=== PATIENT | female | born 1965 | race Caucasian/White ===

== ENCOUNTER 2017-11-09 09:00 | Outpatient (RCR) | payer OTHER, MEDICAID, SELFPAY ==
--- NOTE | 2017-10-26 13:11 | PT.OTN ---
Addendum entered and electronically signed by Lakia Garcia, PT 10/26/17 17:38: Transition note: On October 23, 2017 our therapy services consisting of Speech, Occupational, and Physical Therapy transitioned from the [employer] electronic documentation system to a new [employer] electronic documentation system.?? All documentation prior to October 23 can be found under [employer] saved data. From October 23 forward all medical record documentation will be in [employer]. Original Note: Current Diagnoses Rectal prolapse (10/26/17) Other spondylosis, lumbosacral region (10/26/17) Muscle weakness (generalized) (10/26/17) Fibromyalgia (10/26/17) Physical Therapy Treatment Note PT-OP-A Visit Information Start: 10/26/17 08:04 Freq: Status: Active Protocol: Activity Type Activity Date Activity User E-Sign Co-Sign Detail Recorded Client Recorded Date Recorded By Document 10/26/17 09:10 LRN [id number] 10/26/17 10:36 LRN 10/26/17 09:10 Out-Patient Physical Therapy Visit Information [Visit Information] -Visit Type Treatment Note -Visit Note 7th visit after Re-eval, Certified to 12/31/17 -Visit Start Time 09:10 -Visit Stop Time 09:55 -Visit Number 06/10 -Number of PLANNING ASSISTANT Visits 0 PT-OP-C Subjective Start: 10/26/17 08:04 Freq: Status: Active Protocol: Activity Type Activity Date Activity User E-Sign Co-Sign Detail Recorded Client Recorded Date Recorded By Document 10/26/17 09:10 LRN [id number] 10/26/17 09:16 LRN 10/26/17 09:10 OP-PT Subjective [Patient Comments] -Patient Comments Seeing a MD at [facility] for diabetes to discuss meds to get diabetes under control so she can have a surgery for her prolapse. No change in condition. Tried the Goldenmilk recipe and thinks maybe there was less swelling in the lower legs. -Patient Reported Progress Same PT-OP-Q Treatments Start: 10/26/17 08:04 Freq: Status: Active Protocol: Activity Type Activity Date Activity User E-Sign Co-Sign Detail Recorded Client Recorded Date Recorded By Document 10/26/17 09:10 LRN [id number] 10/26/17 09:30 LRN 10/26/17 09:10 Cardio Equipment [Recumbent Stepper (Sci-Fit)] -Duration (Minutes) 6 -Resistance 1 -Seat Position 14 Therapeutic Exercises [Supine Exercises] 2 -Supine Exercise Name On wedge, Kegel with Hands & knees push -Side bilateral -Comments Kegel hold for 2 reps at a time 1 -Supine Exercise Name LE Roll in/out with wedge, pillow and T- Band -Side bilateral -Reps/Minutes 10 [Sidelying Exercises] 1 -Sidelying Exercise Name Kegel with hip AD -Side bilateral -Comments Kegel hold for 2 reps at a time [Standing Exercises] 1 -Standing Exercise Name Standing general ex's -Side bilateral -Reps/Minutes 2 each of 7 ex' s -Comments neck & shoulder rolls, shoulder AB/ horiz AB/ext & quad, achilles stretch [Other Exercises] 1 -Other Exercise Name Kegels walking -Comments 5 steps with Kegel, 10 steps without Self-Care/Home Management Treatment [Education] -Patient Education Home Exercise Program [Activities] -Self-Care/Home Management Activities Handout issued and reviewed: Hip AD with Kegel, Standing bent over Kegel, Walking with Kegel. PT-OP-T Assessment and Plan Start: 10/26/17 08:04 Freq: Status: Active Protocol: Activity Type Activity Date Activity User E-Sign Co-Sign Detail Recorded Client Recorded Date Recorded By Document 10/26/17 09:10 LRN [id number] 10/26/17 10:28 LRN 10/26/17 09:10 Physical Therapy Assessment [Impairments] -Impairments Balance Pain Posture ROM Strength -Other Impairments Rectal Prolapse Lacks knowledge of self care exercises. Knowledge of proper bowel care [Assessment Summary] -Assessment Pt had one episode of tearing up. She appears to know her HEP of general stretches ~75%. She tolerated new ex's well. Held issuing Hands/knees push until better breathing control with ex is gained. Physical Therapy Plan [Frequency and Duration] -Frequency of Treatment 1x/Week -Duration of Treatment 1 week -Plan of Care Start Date 09/06/17 -Plan of Care End Date 11/05/17 [Next Visit Focus/Plan] -Next Visit Plan Re-eval, HEP for self care. Discuss plan for DC.
--- NOTE | 2017-10-26 13:13 | PT.OTN ---
Current Diagnoses Rectal prolapse (10/26/17) Other spondylosis, lumbosacral region (10/26/17) Muscle weakness (generalized) (10/26/17) Fibromyalgia (10/26/17) Physical Therapy Treatment Note PT-OP-A Visit Information Start: 10/26/17 08:04 Freq: Status: Active Protocol: Activity Type Activity Date Activity User E-Sign Co-Sign Detail Recorded Client Recorded Date Recorded By Document 10/26/17 09:10 LRN [id number] 10/26/17 10:36 LRN 10/26/17 09:10 Out-Patient Physical Therapy Visit Information [Visit Information] -Visit Type Treatment Note -Visit Note 7th visit after Re-eval, Certified to 12/31/17 -Visit Start Time 09:10 -Visit Stop Time 09:55 -Visit Number 06/10 -Number of INSPECTOR DIALS Visits 0 PT-OP-C Subjective Start: 10/26/17 08:04 Freq: Status: Active Protocol: Activity Type Activity Date Activity User E-Sign Co-Sign Detail Recorded Client Recorded Date Recorded By Document 10/26/17 09:10 LRN [id number] 10/26/17 09:16 LRN 10/26/17 09:10 OP-PT Subjective [Patient Comments] -Patient Comments Seeing a MD at [facility] for diabetes to discuss meds to get diabetes under control so she can have a surgery for her prolapse. No change in condition. Tried the Goldenmilk recipe and thinks maybe there was less swelling in the lower legs. -Patient Reported Progress Same PT-OP-Q Treatments Start: 10/26/17 08:04 Freq: Status: Active Protocol: Activity Type Activity Date Activity User E-Sign Co-Sign Detail Recorded Client Recorded Date Recorded By Document 10/26/17 09:10 LRN [id number] 10/26/17 09:30 LRN 10/26/17 09:10 Cardio Equipment [Recumbent Stepper (Sci-Fit)] -Duration (Minutes) 6 -Resistance 1 -Seat Position 14 Therapeutic Exercises [Supine Exercises] 2 -Supine Exercise Name On wedge, Kegel with Hands & knees push -Side bilateral -Comments Kegel hold for 2 reps at a time 1 -Supine Exercise Name LE Roll in/out with wedge, pillow and T- Band -Side bilateral -Reps/Minutes 10 [Sidelying Exercises] 1 -Sidelying Exercise Name Kegel with hip AD -Side bilateral -Comments Kegel hold for 2 reps at a time [Standing Exercises] 1 -Standing Exercise Name Standing general ex's -Side bilateral -Reps/Minutes 2 each of 7 ex' s -Comments neck & shoulder rolls, shoulder AB/ horiz AB/ext & quad, achilles stretch [Other Exercises] 1 -Other Exercise Name Kegels walking -Comments 5 steps with Kegel, 10 steps without Self-Care/Home Management Treatment [Education] -Patient Education Home Exercise Program [Activities] -Self-Care/Home Management Activities Handout issued and reviewed: Hip AD with Kegel, Standing bent over Kegel, Walking with Kegel. PT-OP-T Assessment and Plan Start: 10/26/17 08:04 Freq: Status: Active Protocol: Activity Type Activity Date Activity User E-Sign Co-Sign Detail Recorded Client Recorded Date Recorded By Document 10/26/17 09:10 LRN [id number] 10/26/17 10:28 LRN 10/26/17 09:10 Physical Therapy Assessment [Impairments] -Impairments Balance Pain Posture ROM Strength -Other Impairments Rectal Prolapse Lacks knowlege of self care exercises. Knowledge of proper bowel care [Assessment Summary] -Assessment Pt had one episode of tearing up. She appears to know her HEP of general stretches ~75%. She tolerated new ex's well. Held issuing Hands/knees push until better breathing control with ex is gained. Physical Therapy Plan [Frequency and Duration] -Frequency of Treatment 1x/Week -Duration of Treatment 1 week -Plan of Care Start Date 09/06/17 -Plan of Care End Date 11/05/17 [Next Visit Focus/Plan] -Next Visit Plan Re-eval, HEP for self care. Discuss plan for DC.
--- NOTE | 2017-11-09 16:50 | PT.OTN ---
Current Diagnoses Rectal prolapse (11/09/17) Other spondylosis, lumbosacral region (11/09/17) Muscle weakness (generalized) (11/09/17) Fibromyalgia (11/09/17) Physical Therapy Treatment Note PT-OP-A Visit Information Start: 10/26/17 08:04 Freq: Status: Active Protocol: Document 11/09/17 09:00 LRN (Rec: 11/09/17 16:46 LRN [id number]) Out-Patient Physical Therapy Visit Information Visit Information Visit Type Treatment Note Visit Start Time 09:00 Visit Stop Time 09:50 Total Visit Minutes 50 Visit Number 13 Number of SALES APPLICATIONS ENGINEER Visits 0 Evaluation Information Evaluation Date 07/10/17 PT-OP-C Subjective Start: 10/26/17 08:04 Freq: Status: Active Protocol: Document 11/09/17 09:00 LRN (Rec: 11/09/17 16:46 LRN [id number]) OP-PT Subjective Patient Comments Patient Comments Notes today is her last therapy appointment and is agreeable to review her home program. Patient Questionnaires Oswestry Low Back Index Oswestry Score 72 Oswestry Impairment 60 to 79% Impaired (Score 60- 79) Pelvic Floor Distress Inventory Questionnaire (PFDI- SF20) Pelvic Floor Score 155 Pelvic Pain and Urgency/Frequency Patient Symptom Scale Pelvic Pain Score 17 PT-OP-I Pelvic Floor Start: 10/26/17 08:04 Freq: Status: Active Protocol: Document 11/09/17 09:00 LRN (Rec: 11/09/17 16:46 LRN [id number]) Pelvic Floor Assessment Contraction Ability Manual Muscle Testing Left 3 Manual Muscle Testing Right 4 Manual Muscle Testing Posterior 3 Muscle Endurance (Seconds) 10 Comments Pelvic Floor Comments PF strength manually tested. Left side 3+/5. PT-OP-K Range of Motion Start: 11/09/17 09:17 Freq: Status: Active Protocol: Document 11/09/17 09:00 LRN (Rec: 11/09/17 16:46 LRN [id number]) Lumbar Spine Range of Motion Lumbar Spine Active Degrees Flexion 85 Extension 15 Rotation Left 50 Rotation Right 53 Lateral Flexion Left 17 Lateral Flexion Right 17 PT-OP-M Strength Start: 10/26/17 08:04 Freq: Status: Active Protocol: Document 11/09/17 09:00 LRN (Rec: 11/09/17 16:46 LRN [id number]) Hip Strength Hip Manual Muscle Testing Right Flexion (L2) 5 Normal Extension (S1) 5 Normal Abduction 2 Poor Adduction 5 Normal External Rotation 4 Good Internal Rotation 4 Good Left Flexion (L2) 5 Normal Extension (S1) 5 Normal Abduction 5 Normal Adduction 4 Good External Rotation 4 Good Internal Rotation 5 Normal PT-OP-Q Treatments Start: 10/26/17 08:04 Freq: Status: Active Protocol: Document 11/09/17 09:00 LRN (Rec: 11/09/17 16:46 LRN [id number]) Therapeutic Exercises Supine Exercises 4 Supine Exercise Name Kegels Reps/Minutes 4' 3 Supine Exercise Name Hip flex, ext, AB, AD, ER, IR Reps/Minutes 20' 1 Supine Exercise Name LE Roll in/out with wedge, pillow and T-Band Side bilateral Reps/Minutes 10 Sidelying Exercises 1 Sidelying Exercise Name Kegel with hip AD Side left Comments 10 reps at a time Standing Exercises 1 Standing Exercise Name Standing general ex's Side bilateral Reps/Minutes 2 each of 7 ex's Comments neck & shoulder rolls, shoulder AB/horiz AB/ext & quad, achilles stretch Self-Care/Home Management Treatment Activities Self-Care/Home Management Activities Reviewed and instructed in areas to focus on in her HEP to improve: Flexibility of trunk, strength of hip AD's and PF L>R. Discussed ex's post surgery once healed. Reviewed ex's pt unsure of. PT-OP-T Assessment and Plan Start: 10/26/17 08:04 Freq: Status: Active Protocol: Document 11/09/17 09:00 LRN (Rec: 11/09/17 16:46 LRN [id number]) Physical Therapy Assessment Progress Towards Goals Progress Comments Pt was able to make progress to her goals of improving strength of her Pelvic Floor. Trunk ROM improved with rotation and overall with flexion. Her trunk and hip strength has shown good improvement. Her PF strength did improve in her lateral wall, remained the same posteriorly. It is important to note that she has improved awareness of being able to perform a pelvic floor contraction and will therefore be able to continue with her HEP. Her functional ability appears unchanged per Owestry Disability Index score indicating 79% disability. Her single leg balance did not improve. Assessment Summary Assessment The pt demonstrated good knowledge of her HEP for her back and Pelvic Floor exercises. The pt appears ready to continue with her HEP . Physical Therapy Plan Discharge Physical Therapy Discharge Comments DC due to pt reached her insurance limit.
--- NOTE | 2017-11-09 16:51 | PT.OPDS ---
Current Diagnoses Rectal prolapse (11/09/17) Other spondylosis, lumbosacral region (11/09/17) Muscle weakness (generalized) (11/09/17) Fibromyalgia (11/09/17) Provider Visit Care Team Role Provider Type Sandra Paez MD Primary Care Provider Non-Staff Specialty: Medical Address: [address] [place] [address], [id number] Email: Rika Walker MD Family Provider Non-Staff Specialty: Medical Address: [address] [place] [address], [id number] Email: Jean William DO Attending Provider Non-Staff Specialty: Medical Address: [address] [place] [address], [id number] Email: Discharge Summary PT-OP-C Subjective Start: 10/26/17 08:04 Freq: Status: Active Protocol: Document 11/09/17 09:00 LRN (Rec: 11/09/17 16:46 LRN [id number]) OP-PT Subjective Patient Comments Patient Comments Notes today is her last therapy appointment and is agreeable to review her home program. Patient Questionnaires Oswestry Low Back Index Oswestry Score 72 Oswestry Impairment 60 to 79% Impaired (Score 60- 79) Pelvic Floor Distress Inventory Questionnaire (PFDI- SF20) Pelvic Floor Score 155 Pelvic Pain and Urgency/Frequency Patient Symptom Scale Pelvic Pain Score 17 PT-OP-I Pelvic Floor Start: 10/26/17 08:04 Freq: Status: Active Protocol: Document 11/09/17 09:00 LRN (Rec: 11/09/17 16:46 LRN [id number]) Pelvic Floor Assessment Contraction Ability Manual Muscle Testing Left 3 Manual Muscle Testing Right 4 Manual Muscle Testing Posterior 3 Muscle Endurance (Seconds) 10 Comments Pelvic Floor Comments PF strength manually tested. Left side 3+/5. PT-OP-K Range of Motion Start: 11/09/17 09:17 Freq: Status: Active Protocol: Document 11/09/17 09:00 LRN (Rec: 11/09/17 16:46 LRN [id number]) Lumbar Spine Range of Motion Lumbar Spine Active Degrees Flexion 85 Extension 15 Rotation Left 50 Rotation Right 53 Lateral Flexion Left 17 Lateral Flexion Right 17 PT-OP-M Strength Start: 10/26/17 08:04 Freq: Status: Active Protocol: Document 11/09/17 09:00 LRN (Rec: 11/09/17 16:46 LRN [id number]) Hip Strength Hip Manual Muscle Testing Right Flexion (L2) 5 Normal Extension (S1) 5 Normal Abduction 2 Poor Adduction 5 Normal External Rotation 4 Good Internal Rotation 4 Good Left Flexion (L2) 5 Normal Extension (S1) 5 Normal Abduction 5 Normal Adduction 4 Good External Rotation 4 Good Internal Rotation 5 Normal PT-OP-T Assessment and Plan Start: 10/26/17 08:04 Freq: Status: Active Protocol: Document 11/09/17 09:00 LRN (Rec: 11/09/17 16:46 LRN [id number]) Physical Therapy Assessment Progress Towards Goals Progress Comments Pt was able to make progress to her goals of improving strength of her Pelvic Floor. Trunk ROM improved with rotation and overall with flexion. Her trunk and hip strength has shown good improvement. Her PF strength did improve in her lateral wall, remained the same posteriorly. It is important to note that she has improved awareness of being able to perform a pelvic floor contraction and will therefore be able to continue with her HEP. Her functional ability appears unchanged per Owestry Disability Index score indicating 79% disability. Her single leg balance did not improve. Assessment Summary Assessment The pt demonstrated good knowledge of her HEP for her back and Pelvic Floor exercises. The pt appears ready to continue with her HEP . Physical Therapy Plan Discharge Physical Therapy Discharge Comments DC due to pt reached her insurance limit.
== END 2017-11-28 16:32 ==
LOC: PHYS 09:00
PROVIDERS: Family Provider Internal Medicine; PCP Family Medicine; Visit Provider Anesthesiology
DX: M47.897 Other spondylosis, lumbosacral region (principal); M62.81 Muscle weakness (generalized); K62.3 Rectal prolapse; M79.7 Fibromyalgia
CPT/HCPCS: 97110; 97535

== ENCOUNTER 2017-12-19 18:42 | Emergency (ER) | payer OTHER, MEDICAID, SELFPAY ==
--- NOTE | 2017-12-19 18:45 | ED.EAR ---
HPI - Ear Problem <ESTEBAN Fernandez - Last Filed: 12/19/17 20:54> General Chief complaint: Ear Stated complaint: EARS HURT Time Seen by Provider: 12/19/17 18:45 History of Present Illness HPI Narrative: 52-year-old female here for complaint of pain into her bilateral ears over the past couple of days. She states that she felt hot yesterday although she did not take her temperature. She denies any trauma to the ears. She states she had some slight drainage from her left ear. Positive p.o. intake. She denies any cold-like symptoms or nasal congestion. No cough. She denies any recent travel or airplane travel or swelling. No other concerns or complaints. MD Complaint: ear pain Location: bilateral Related Data Home Medications Medication Instructions Recorded Confirmed ACETAMINOPHEN (#TYLENOL) 1,000 mg PO TID #0 01/22/11 clonazepam 1 mg PO HS #0 06/11/11 LIDOCAINE 1 patch TOPICAL QDAY #0 09/18/11 OXYCODONE HYDROCHLORIDE (OXYCODONE 15 mg PO TID #0 09/18/11 IR) sumatriptan succinate [Imitrex] 6 mg SQ PRN #0 09/18/11 topiramate [Topamax] 300 mg PO BID #0 09/18/11 Previous Rx's Medication Instructions Recorded amoxicillin 500 mg PO BID #14 tab 12/19/17 [id number] 4 drop EAR-BOTH QID 7 Days #10 ml 12/19/17 Allergies Allergy/AdvReac Type Severity Reaction Status Date / Time antidepressants AdvReac Severe Depression Uncoded 12/19/17 19:03 MUSCLE RELAXANTS AdvReac Intermediate MIGRAINE Uncoded 12/19/17 19:01 NSAID AdvReac Intermediate ABD PAIN Uncoded 12/19/17 19:01 Review of Systems <ESTEBAN Fernandez - Last Filed: 12/19/17 20:54> Constitutional Denies chills, Denies fever(s), Denies lethargy and Denies weakness Eyes Denies change in vision, Denies eye discharge, Denies irritation and Denies loss of vision ENT Ears, Nose, Mouth, and Throat: Reports otalgia Cardiovascular Denies chest pain, Denies irregular heart rhythm, Denies lightheadedness, Denies palpitations, Denies dyspnea, Denies dyspnea on exertion and Denies orthopnea Respiratory Denies cough, Denies dyspnea, Denies dyspnea on exertion and Denies wheezing Gastrointestinal Gastrointestinal: Denies abdominal pain, Denies change in bowel habits, Denies diarrhea, Denies nausea and Denies vomiting Genitourinary Denies hematuria, Denies flank pain, Denies urinary incontinence and Denies urinary urgency Musculoskeletal Denies back pain, Denies muscle weakness, Denies numbness and Denies tingling Integumentary/Breasts Denies pruritus, Denies erythema, Denies rash and Denies wounds Neurologic Denies confusion, Denies loss of vision, Denies numbness, Denies tingling and Denies weakness Psychiatric Denies anxiety, Denies confusion, Denies depression, Denies homicidal ideation and Denies suicidal ideation Endocrine Denies palpitations Hematologic/Lymphatic Denies easy bruising Allergic/Immunologic Denies wheezing Exam <ESTEBAN Fernandez - Last Filed: 12/19/17 20:54> Initial Vital Signs Initial Vital Signs: Vital Signs Temperature 98.1 F 12/19/17 18:56 Pulse Rate 68 12/19/17 18:56 Respiratory Rate 18 12/19/17 18:56 Blood Pressure 106/89 H 12/19/17 18:56 Pulse Oximetry 97 12/19/17 18:56 Const General: cooperative and well developed Nutritional Appearance: well nourished Orientation: alert, awake, oriented x3 and not confused [facility] Ears: other (Bilateral external ear canal is slightly erythematous. Left tympanic membrane with erythema. Right tympanic membrane is normal) Nose: external nose normal Mouth: oral mucosae normal, salivary ducts normal and moist mucous membranes Teeth and gingiva: dentition normal Throat: posterior oropharynx normal Eyes Conjunctivae: conjunctivae normal Sclera: sclerae normal EOM: EOM intact bilaterally Resp Effort & Inspection: normal respiratory effort, able to speak in complete sentences, no respiratory distress and no use of accessory muscles Auscultation: clear to auscultation bilaterally, no rales, no rhonchi and no wheezes Cardio Rate: regular rate Rhythm: regular rhythm Heart Sounds: no click, no gallops, no murmurs and no rubs Skin General: no rashes or lesions noted, No jaundice and No petechiae <William Cason DO - Last Filed: 12/19/17 21:11> Initial Vital Signs Initial Vital Signs: Vital Signs Temperature 98.1 F 12/19/17 18:56 Pulse Rate 68 12/19/17 18:56 Respiratory Rate 18 12/19/17 18:56 Blood Pressure 106/89 H 12/19/17 18:56 Pulse Oximetry 97 12/19/17 18:56 Course <ESTEBAN Fernandez - Last Filed: 12/19/17 20:54> Vital Signs - 8 hr 12/19/17 18:56 12/19/17 18:57 Temperature 98.1 F 98.1 F Pulse Rate 68 68 Respiratory Rate 18 18 Blood Pressure 106/89 H Blood Pressure [Right Arm] 106/89 H Pulse Oximetry 97 97 <William Cason DO - Last Filed: 12/19/17 21:11> Vital Signs - 8 hr 12/19/17 18:56 12/19/17 18:57 Temperature 98.1 F 98.1 F Pulse Rate 68 68 Respiratory Rate 18 18 Blood Pressure 106/89 H Blood Pressure [Right Arm] 106/89 H Pulse Oximetry 97 97 Medical Decision Making <ESTEBAN Fernandez - Last Filed: 12/19/17 20:54> MDM Narrative Medical decision making narrative: Bilateral external ear canals are erythematous and the left eardrum is also erythematous. Prescribed corticosporin to treat otitis externa. Amoxicillin as prescribed by mouth to treat left inner ear infection. [id number] Tylenol as needed for any discomfort. Follow up with primary care provider in the next few days for re-evaluation. For any worsening symptoms return to the emergency room. Discharge Plan Departure Patient Disposition: Home, Self-Care Clinical Impression: Otitis externa, Otitis media Discharge Date/Time: 12/19/17 19:33 Interventions: ED Discharge Assessment Last Done: 12/19/17 19:32 Instructions: Middle Ear Infection, DI for Otitis Externa Activity Restrictions/Additional Instructions: Both ear canals were read and left ear canal was also read. You were treated for external ear infection to both ears and to inner ear infection to the left ear with antibiotics. Antibiotic drops to bilateral ears as directed. And oral amoxicillin as directed for infection. Use [id number] Tylenol as needed for any discomfort or fever. Follow up with her primary care provider next few days for re-evaluation. For any worsening symptoms return emergency room. Prescriptions: New [id number] 3.5-10,000-1 mg/mL-unit/mL-% solution 4 drop EAR-BOTH QID 7 Days Qty: 10 RF: 0 amoxicillin 500 mg tablet 500 mg PO BID Qty: 14 RF: 0 No Action ACETAMINOPHEN (#TYLENOL) 1,000 mg PO TID Qty: 0 RF: 0 clonazepam 0.5 MG tablet 1 mg PO HS Qty: 0 RF: 0 OXYCODONE HYDROCHLORIDE (OXYCODONE IR) 15 mg PO TID Qty: 0 RF: 0 sumatriptan succinate [Imitrex] 6 MG/0.5 ML solution 6 mg SQ PRN Qty: 0 RF: 0 topiramate [Topamax] 100 MG tablet 300 mg PO BID Qty: 0 RF: 0 LIDOCAINE 1 patch Topical QDAY Qty: 0 RF: 0 Referrals: Sandra Paez MD [Primary Care Provider] - <William Cason DO - Last Filed: 12/19/17 21:11> Cosign ED Attending Cosseanature Attestation: I was immediately available in the department for consultation. Documentation has been reviewed. I agree with assessment and plan.
[2017-12-19 18:56] VITALS: BP 106/89; PULSE 68; RESP 18; TEMP 36.7; O2SAT 97
[2017-12-19 18:57] VITALS: BP 106/89; PULSE 68; RESP 18; TEMP 36.7; O2SAT 97; BMI 45.1
== END 2017-12-19 19:33 | disposition home or self-care (01) ==
PROVIDERS: Emergency Provider Nurse Practitioner Family; Family Provider Internal Medicine; PCP Family Medicine
DX: H60.90 Unspecified otitis externa, unspecified ear (principal)
CPT/HCPCS: 99282

== ENCOUNTER 2017-12-21 17:31 | Emergency (ER) | payer OTHER, MEDICAID, SELFPAY ==
[2017-12-21 17:46] VITALS: BP 158/86; PULSE 75; RESP 18; TEMP 38.1; O2SAT 95; BMI 45.1
--- NOTE | 2017-12-21 19:13 | ED.EAR ---
HPI - Ear Problem <Marina Rose PA-C - Last Filed: 12/21/17 23:12> General Chief complaint: Ear Stated complaint: ear infection Time Seen by Provider: 12/21/17 19:09 Source: patient and family Mode of arrival: ambulatory History of Present Illness HPI Narrative: This 52-year-old female complains of worsening left ear pain (more than right) since she was seen here a couple of days ago. She states initially the pain started in her right ear on Sunday evening or Sunday morning, and this has been low-grade pain, but by Sunday she had severe pain in her left ear and was seen here. Diagnosed with otitis externa and media. She states that the ear swelling has continued to worsen to the point she has not been able to get the ear drops in her ear. Her hearing seems muffled in the left ear. She has continued taking amoxicillin. She states she has had chills and sweats but no fever at home. She states she has had drainage from the left ear for a couple of years which is yellow and waxy, PCP thought that it was due to a skin issue and prescribe steroids. She states that she has some ongoing dyspnea with COPD, may be feeling slightly short of breath and a little bit more wheezy recently, not clearly worse now. She does not have chest pain, new pain in her extremities or swelling. She denies any possibility of . Related Data Home Medications Medication Instructions Recorded Confirmed ACETAMINOPHEN (#TYLENOL) 1,000 mg PO TID #0 01/22/11 clonazepam 1 mg PO HS #0 06/11/11 LIDOCAINE 1 patch TOPICAL QDAY #0 09/18/11 OXYCODONE HYDROCHLORIDE (OXYCODONE 15 mg PO TID #0 09/18/11 IR) sumatriptan succinate [Imitrex] 6 mg SQ PRN #0 09/18/11 topiramate [Topamax] 300 mg PO BID #0 09/18/11 Previous Rx's Medication Instructions Recorded amoxicillin 500 mg PO BID #14 tab 12/19/17 [id number] 4 drop EAR-BOTH QID 7 Days #10 ml 12/19/17 levofloxacin 500 mg PO DAILY 7 Days tab 12/21/17 ofloxacin 10 drop EAR-BOTH DAILY #10 ml 12/21/17 Allergies Allergy/AdvReac Type Severity Reaction Status Date / Time No Known Allergies Allergy Verified 12/21/17 19:33 fluoxetine [From Prozac] AdvReac Severe Depression Verified 12/21/17 19:32 Tricyclic Compounds AdvReac Severe Depression Verified 12/21/17 19:31 venlafaxine AdvReac Severe Depression Verified 12/21/17 19:34 ibuprofen AdvReac Intermediate Abdominal Verified 12/21/17 19:36 Pain methocarbamol AdvReac Intermediate Migraine Verified 12/21/17 19:34 tizanidine AdvReac Intermediate Migraine Verified 12/21/17 19:35 Review of Systems <Marina Rose PA-C - Last Filed: 12/21/17 23:12> Review of Systems All systems reviewed & are unremarkable except as noted in HPI and below Exam <Marina Rose PA-C - Last Filed: 12/21/17 23:12> Narrative Exam Narrative: GENERAL APPEARANCE: Patient sitting comfortably, in no distress. HEAD: No sinus TTP, no mastoid tenderness. EYES: PERRL, EOMI. EARS: Right auditory canal is mildly edematous, TM is intact with dull light reflex. Left canal is close tight, unable to examine secondary to tenderness, unable to visualize TM. Hearing is grossly intact. ORAL CAVITY: Normal oropharynx. THROAT: Mild erythema, no exudate NECK/THYROID: Neck supple, full range of motion, no cervical lymphadenopathy. LUNGS: Clear to auscultation bilaterally, no cough on exam. HEART: RRR without murmur, nl S1, S2, no S3 or S4. EXTREMITIES: No cyanosis or edema Initial Vital Signs Initial Vital Signs: Vital Signs Temperature 100.6 F H 12/21/17 17:46 Pulse Rate 75 12/21/17 17:46 Respiratory Rate 18 12/21/17 17:46 Blood Pressure 158/86 H 12/21/17 17:46 Pulse Oximetry 95 12/21/17 17:46 <William Cason DO - Last Filed: 12/22/17 02:49> Initial Vital Signs Initial Vital Signs: Vital Signs Temperature 100.6 F H 12/21/17 17:46 Pulse Rate 75 12/21/17 17:46 Respiratory Rate 18 12/21/17 17:46 Blood Pressure 158/86 H 12/21/17 17:46 Pulse Oximetry 95 12/21/17 17:46 Course <Marina Rose PA-C - Last Filed: 12/21/17 23:12> Additional Information: I reviewed findings and history with attending physician Dr. Cason who advised CT scan. We have reviewed results. He agrees reasonable to change antibiotic and have patient follow up with ENT. She is agreeable with this plan as well as to return if any worsening symptoms over the weekend. She has taken quinolone antibiotics in the past and tolerated well. I was able to instill ofloxacin drops in patient's ear after she had pain medication. Orders Ordered: ED Orders 12/21/17 19:35 CT mastoid temporal Stat 12/21/17 20:40 Basic Metabolic Panel Stat C-Reactive Protein Quant Stat Complete Blood Count AUTO DIFF Stat Erythrocyte Sedimentation Rate Stat Lactate (Lactic Acid) Stat Procalcitonin Stat Discontinued Medications Hydrocodone Bitart/Acetaminophen ([place] 5/325) 2 tab PO NOW ONE Stop: 12/21/17 19:27 Last Admin: 12/21/17 19:40 Dose: 2 tab Hydrocodone Bitart/Acetaminophen (Vicodin Prepack) 1 bottle MISC SEEINSTR ONE Stop: 12/21/17 22:18 Last Admin: 12/21/17 22:43 Dose: 1 bottle Sodium Chloride (Normal Saline 0.9%) 1,000 mls @ 1,000 mls/hr IV BOLUS ONE Stop: 12/21/17 20:34 Last Infusion: 12/21/17 22:16 Dose: 0 mls/hr Admin: 12/21/17 21:13 Dose: 1,000 mls/hr Levofloxacin (Levaquin) 500 mg PO NOW ONE Stop: 12/21/17 21:35 Last Admin: 12/21/17 21:40 Dose: 500 mg Ofloxacin (Floxin 0.3% Otic) 5 drops EAR-LEFT NOW ONE Stop: 12/21/17 21:35 Last Admin: 12/21/17 21:46 Dose: 5 drops Vital Signs - 8 hr 12/21/17 19:40 12/21/17 20:32 12/21/17 22:14 Temperature 100.7 F H 97.9 F 97.9 F Pulse Rate 75 79 Respiratory Rate 18 16 Blood Pressure [Left Arm] 141/81 H 122/83 H Pulse Oximetry 97 99 <William Cason DO - Last Filed: 12/22/17 02:49> Orders Ordered: ED Orders 12/21/17 19:35 CT mastoid temporal Stat 12/21/17 20:40 Basic Metabolic Panel Stat C-Reactive Protein Quant Stat Complete Blood Count AUTO DIFF Stat Erythrocyte Sedimentation Rate Stat Lactate (Lactic Acid) Stat Procalcitonin Stat Discontinued Medications Hydrocodone Bitart/Acetaminophen ([place] 5/325) 2 tab PO NOW ONE Stop: 12/21/17 19:27 Last Admin: 12/21/17 19:40 Dose: 2 tab Hydrocodone Bitart/Acetaminophen (Vicodin Prepack) 1 bottle MISC SEEINSTR ONE Stop: 12/21/17 22:18 Last Admin: 12/21/17 22:43 Dose: 1 bottle Sodium Chloride (Normal Saline 0.9%) 1,000 mls @ 1,000 mls/hr IV BOLUS ONE Stop: 12/21/17 20:34 Last Infusion: 12/21/17 22:16 Dose: 0 mls/hr Admin: 12/21/17 21:13 Dose: 1,000 mls/hr Levofloxacin (Levaquin) 500 mg PO NOW ONE Stop: 12/21/17 21:35 Last Admin: 12/21/17 21:40 Dose: 500 mg Ofloxacin (Floxin 0.3% Otic) 5 drops EAR-LEFT NOW ONE Stop: 12/21/17 21:35 Last Admin: 12/21/17 21:46 Dose: 5 drops Vital Signs - 8 hr 12/21/17 19:40 12/21/17 20:32 12/21/17 22:14 Temperature 100.7 F H 97.9 F 97.9 F Pulse Rate 75 79 Respiratory Rate 18 16 Blood Pressure [Left Arm] 141/81 H 122/83 H Pulse Oximetry 97 99 Medical Decision Making <Marina Rose PA-C - Last Filed: 12/21/17 23:12> Lab Data Result diagrams: 12/21/17 20:40 12/21/17 20:40 Lab Results 12/21/17 12/21/17 12/21/17 Range/Units 20:40 20:40 20:40 WBC 16.0 H (4.5-11.0) X10^3/uL RBC 4.57 (4.0-5.2) X10^6/uL Hgb 13.7 (12.0-16.0) g/dL Hct 41.0 (36-46) % MCV 89.7 (80-100) fL MCH 30.0 (26-34) PG MCHC 33.5 (30-36) % RDW 13.5 (11.6-14.8) % Plt Count 273 (150-400) X10^3/uL Neut % (Auto) 76.7 H (50-75) % Lymph % (Auto) 14.1 L (25-40) % [place] % (Auto) 8.3 (3-14) % Eos % (Auto) 0.2 L (2-4) % Baso % (Auto) 0.7 (0-2) % Neut # (Auto) 91888 H (6051-0811) /uL ESR 8 (0-20) MM/HR Sodium 136 L (137-145) mmol/L Potassium 4.2 (3.4-5.1) mmol/L Chloride 101 (98-107) mmol/L Carbon Dioxide 23 (22-32) mmol/L BUN 16 (7-17) mg/dL Creatinine 0.70 (0.52-1.04) mg/dL Estimated GFR > 60.0 (>60) mL/min BUN/Creatinine Ratio 22.9 H (6-22) Glucose 133 H (70-100) mg/dL Lactate (0.7-2.1) mmol/L Calcium 9.3 (8.4-10.2) mg/dL C-Reactive Protein 15.8 H (<1.0) mg/dL Procalcitonin < 0.05 (<0.5) ng/mL 12/21/17 Range/Units 20:40 WBC (4.5-11.0) X10^3/uL RBC (4.0-5.2) X10^6/uL Hgb (12.0-16.0) g/dL Hct (36-46) % MCV (80-100) fL MCH (26-34) PG MCHC (30-36) % RDW (11.6-14.8) % Plt Count (150-400) X10^3/uL Neut % (Auto) (50-75) % Lymph % (Auto) (25-40) % [place] % (Auto) (3-14) % Eos % (Auto) (2-4) % Baso % (Auto) (0-2) % Neut # (Auto) (6588-6726) /uL ESR (0-20) MM/HR Sodium (137-145) mmol/L Potassium (3.4-5.1) mmol/L Chloride (98-107) mmol/L Carbon Dioxide (22-32) mmol/L BUN (7-17) mg/dL Creatinine (0.52-1.04) mg/dL Estimated GFR (>60) mL/min BUN/Creatinine Ratio (6-22) Glucose (70-100) mg/dL Lactate 0.8 (0.7-2.1) mmol/L Calcium (8.4-10.2) mg/dL C-Reactive Protein (<1.0) mg/dL Procalcitonin (<0.5) ng/mL Imaging Data mastoid: Radiologist's impression: [place] [address] CT Scan Report Signed Patient: Julia Skinner MR#: [id number] : 1965 Acct:[id number] Age/Sex: 52 / F Date of Service: 12/21/17 Loc: Accession Number: [id number] Procedure: CT mastoid temporal Ordering Provider: Marina Rose P.A-C PROCEDURE: CT MASTOID TEMPORAL INDICATIONS: EAR INFECTION, OE, worsening ? malignant COMPARISON: None. TECHNIQUE: Noncontrast 0.6 mm thick direct axial and coronal sections acquired through each temporal bone separately. FINDINGS: Image quality: Excellent. RIGHT: External auditory canal: Canal has a normal appearance. Middle ear: The middle ear structures, including the ossicles and tympanic membrane, appear normal. No abnormal fluid or soft tissue density. Inner ear: Inner ear is normally formed and appears unremarkable. Facial nerve appears normal throughout is course. Mastoids: Scattered opacities noted in the right mastoid air cells. LEFT: External auditory canal: Canal has a normal appearance. Middle ear: The middle ear structures, including the ossicles and tympanic membrane, appear normal. Soft tissue density structure is noted in the left middle ear surrounding the left malleus and incus. No erosive changes identified near ossicles. Inner ear: Inner ear is normally formed and appears unremarkable. Facial nerve appears normal throughout its course. Mastoids: Opacities noted in the left mastoid air cells. MISCELLANEOUS: Visualized surrounding bones appear unremarkable. Visualized intracranial structures, including the cerebellopontine angle cisterns, appear normal. IMPRESSION: 1. No osseous erosive changes. 2. Small soft tissue density left middle ear lesion surrounding the left malleus and incus. Cholesteatoma cannot be excluded. 3. Scattered opacities in the mastoid air cells bilaterally. Please correlate with direct physical to differentiate serous fluid from an inflammatory process. 4. Study is optimized for visualization of the osseous anatomy of the mastoid portion of the temporal bones, the middle ears and inner ears. Necrotizing/malignant otitis externa not excluded by this study. Dictated by: Yumiko Rubio MD, PhD on 12/21/2017 at 20:34 Approved by: Yumiko Rubio MD, PhD on 12/21/2017 at 20:41 <William Cason, - Last Filed: 12/22/17 02:49> Lab Data Lab Results 12/21/17 12/21/17 12/21/17 Range/Units 20:40 20:40 20:40 WBC 16.0 H (4.5-11.0) X10^3/uL RBC 4.57 (4.0-5.2) X10^6/uL Hgb 13.7 (12.0-16.0) g/dL Hct 41.0 (36-46) % MCV 89.7 (80-100) fL MCH 30.0 (26-34) PG MCHC 33.5 (30-36) % RDW 13.5 (11.6-14.8) % Plt Count 273 (150-400) X10^3/uL Neut % (Auto) 76.7 H (50-75) % Lymph % (Auto) 14.1 L (25-40) % [place] % (Auto) 8.3 (3-14) % Eos % (Auto) 0.2 L (2-4) % Baso % (Auto) 0.7 (0-2) % Neut # (Auto) 83448 H (1870-5168) /uL ESR 8 (0-20) MM/HR Sodium 136 L (137-145) mmol/L Potassium 4.2 (3.4-5.1) mmol/L Chloride 101 (98-107) mmol/L Carbon Dioxide 23 (22-32) mmol/L BUN 16 (7-17) mg/dL Creatinine 0.70 (0.52-1.04) mg/dL Estimated GFR > 60.0 (>60) mL/min BUN/Creatinine Ratio 22.9 H (6-22) Glucose 133 H (70-100) mg/dL Lactate (0.7-2.1) mmol/L Calcium 9.3 (8.4-10.2) mg/dL C-Reactive Protein 15.8 H (<1.0) mg/dL Procalcitonin < 0.05 (<0.5) ng/mL 12/21/17 Range/Units 20:40 WBC (4.5-11.0) X10^3/uL RBC (4.0-5.2) X10^6/uL Hgb (12.0-16.0) g/dL Hct (36-46) % MCV (80-100) fL MCH (26-34) PG MCHC (30-36) % RDW (11.6-14.8) % Plt Count (150-400) X10^3/uL Neut % (Auto) (50-75) % Lymph % (Auto) (25-40) % [place] % (Auto) (3-14) % Eos % (Auto) (2-4) % Baso % (Auto) (0-2) % Neut # (Auto) (7906-2897) /uL ESR (0-20) MM/HR Sodium (137-145) mmol/L Potassium (3.4-5.1) mmol/L Chloride (98-107) mmol/L Carbon Dioxide (22-32) mmol/L BUN (7-17) mg/dL Creatinine (0.52-1.04) mg/dL Estimated GFR (>60) mL/min BUN/Creatinine Ratio (6-22) Glucose (70-100) mg/dL Lactate 0.8 (0.7-2.1) mmol/L Calcium (8.4-10.2) mg/dL C-Reactive Protein (<1.0) mg/dL Procalcitonin (<0.5) ng/mL Discharge Plan Departure Patient Disposition: Home, Self-Care Clinical Impression: Otitis externa, Otitis media Discharge Date/Time: 12/21/17 22:46 Interventions: ED Discharge Assessment Last Done: 12/21/17 22:45 Instructions: DI for Otitis Externa, DI for Otitis Media (Middle Ear Infection)-Child Activity Restrictions/Additional Instructions: Return as we talked about if you have any acutely worsening symptoms.. Your amoxicillin and neomycin eardrops. Take your 2nd levofloxacin pill tomorrow, and also start the ofloxin eardrop prescription instead. You can use the eye drops I gave you tonight as well (they are the same concentration). You can take the pain pills that we gave you tonight and in the morning if needed. Then change back to Tylenol. Please call [facility] 1st thing on Sunday morning and let them know you were seen in the emergency room with a severe infection and we referred you to follow up with them, they should be able to see you in 1 of their offices Prescriptions: New ofloxacin 0.3 % drops 10 drop EAR-BOTH DAILY Qty: 10 RF: 0 levofloxacin 500 mg tablet 500 mg PO DAILY 7 Days RF: 0 No Action ACETAMINOPHEN (#TYLENOL) 1,000 mg PO TID Qty: 0 RF: 0 clonazepam 0.5 MG tablet 1 mg PO HS Qty: 0 RF: 0 OXYCODONE HYDROCHLORIDE (OXYCODONE IR) 15 mg PO TID Qty: 0 RF: 0 sumatriptan succinate [Imitrex] 6 MG/0.5 ML solution 6 mg SQ PRN Qty: 0 RF: 0 topiramate [Topamax] 100 MG tablet 300 mg PO BID Qty: 0 RF: 0 LIDOCAINE 1 patch Topical QDAY Qty: 0 RF: 0 deypbwgw-bidiosuti-DT 3.5-10,000-1 mg/mL-unit/mL-% solution 4 drop EAR-BOTH QID 7 Days Qty: 10 RF: 0 amoxicillin 500 mg tablet 500 mg PO BID Qty: 14 RF: 0 Referrals: Hernan Jones MD [Physician] - Sandra Paez MD [Primary Care Provider] - <William Cason DO - Last Filed: 12/22/17 02:49> Cosign ED Attending Minnieature Attestation: I was immediately available in the department for consultation. Documentation has been reviewed. I agree with assessment and plan.
--- NOTE | 2017-12-21 19:35 | DI.CT.S_ITS ---
PROCEDURE: CT MASTOID TEMPORAL INDICATIONS: EAR INFECTION, OE, worsening ? malignant COMPARISON: None. TECHNIQUE: Noncontrast 0.6 mm thick direct axial and coronal sections acquired through each temporal bone separately. FINDINGS: Image quality: Excellent. RIGHT: External auditory canal: Canal has a normal appearance. Middle ear: The middle ear structures, including the ossicles and tympanic membrane, appear normal. No abnormal fluid or soft tissue density. Inner ear: Inner ear is normally formed and appears unremarkable. Facial nerve appears normal throughout is course. Mastoids: Scattered opacities noted in the right mastoid air cells. LEFT: External auditory canal: Canal has a normal appearance. Middle ear: The middle ear structures, including the ossicles and tympanic membrane, appear normal. Soft tissue density structure is noted in the left middle ear surrounding the left malleus and incus. No erosive changes identified near ossicles. Inner ear: Inner ear is normally formed and appears unremarkable. Facial nerve appears normal throughout its course. Mastoids: Opacities noted in the left mastoid air cells. MISCELLANEOUS: Visualized surrounding bones appear unremarkable. Visualized intracranial structures, including the cerebellopontine angle cisterns, appear normal. IMPRESSION: 1. No osseous erosive changes. 2. Small soft tissue density left middle ear lesion surrounding the left malleus and incus. Cholesteatoma cannot be excluded. 3. Scattered opacities in the mastoid air cells bilaterally. Please correlate with direct physical to differentiate serous fluid from an inflammatory process. 4. Study is optimized for visualization of the osseous anatomy of the mastoid portion of the temporal bones, the middle ears and inner ears. Necrotizing/malignant otitis externa not excluded by this study. Dictated by: Yumiko Rubio MD, PhD on 12/21/2017 at 20:34 Approved by: Yumiko Rubio MD, PhD on 12/21/2017 at 20:41
[2017-12-21 19:40] VITALS: TEMP 38.2
[2017-12-21] MEDS: HYDROCODONE/ACET 5/325 TABLET 2 TAB PO (19:40)
--- NOTE | 2017-12-21 19:44 | ED_ITS ---
HPI - Ear Problem <Marina Rose PA-C - Last Filed: 12/21/17 23:12> General Chief complaint: Ear Stated complaint: ear infection Time Seen by Provider: 12/21/17 19:09 Source: patient and family Mode of arrival: ambulatory History of Present Illness HPI Narrative: This 52-year-old female complains of worsening left ear pain ( more than right) since she was seen here a couple of days ago. She states initially the pain started in her right ear on Sunday evening or Sunday morning , and this has been low-grade pain, but by Sunday she had severe pain in her left ear and was seen here. Diagnosed with otitis externa and media. She states that the ear swelling has continued to worsen to the point she has not been able to get the ear drops in her ear. Her hearing seems muffled in the left ear. She has continued taking amoxicillin. She states she has had chills and sweats but no fever at home. She states she has had drainage from the left ear for a couple of years which is yellow and waxy, PCP thought that it was due to a skin issue and prescribe steroids. She states that she has some ongoing dyspnea with COPD, may be feeling slightly short of breath and a little bit more wheezy recently, not clearly worse now. She does not have chest pain, new pain in her extremities or swelling. She denies any possibility of . Related Data Home Medications Medication Instructions Recorded Confirmed ACETAMINOPHEN (#TYLENOL) 1,000 mg PO TID #0 01/22/11 clonazepam 1 mg PO HS #0 06/11/11 LIDOCAINE 1 patch TOPICAL QDAY #0 09/18/11 OXYCODONE HYDROCHLORIDE (OXYCODONE 15 mg PO TID #0 09/18/11 IR) sumatriptan succinate [Imitrex] 6 mg SQ PRN #0 09/18/11 topiramate [Topamax] 300 mg PO BID #0 09/18/11 Previous Rx's Medication Instructions Recorded amoxicillin 500 mg PO BID #14 tab 12/19/17 [id number] 4 drop EAR-BOTH QID 7 Days #10 ml 12/19/17 levofloxacin 500 mg PO DAILY 7 Days tab 12/21/17 ofloxacin 10 drop EAR-BOTH DAILY #10 ml 12/21/17 Allergies Allergy/AdvReac Type Severity Reaction Status Date / Time No Known Allergies Allergy Verified 12/21/17 19:33 fluoxetine [From Prozac] AdvReac Severe Depression Verified 12/21/17 19:32 Tricyclic Compounds AdvReac Severe Depression Verified 12/21/17 19:31 venlafaxine AdvReac Severe Depression Verified 12/21/17 19:34 ibuprofen AdvReac Intermediate Abdominal Verified 12/21/17 19:36 Pain methocarbamol AdvReac Intermediate Migraine Verified 12/21/17 19:34 tizanidine AdvReac Intermediate Migraine Verified 12/21/17 19:35 Review of Systems <Marina Rose PA-C - Last Filed: 12/21/17 23:12> Review of Systems All systems reviewed & are unremarkable except as noted in HPI and below Exam <Marina Rose PA-C - Last Filed: 12/21/17 23:12> Narrative Exam Narrative: GENERAL APPEARANCE: Patient sitting comfortably, in no distress. HEAD: No sinus TTP, no mastoid tenderness. EYES: PERRL, EOMI. EARS: Right auditory canal is mildly edematous, TM is intact with dull light reflex. Left canal is close tight, unable to examine secondary to tenderness, unable to visualize TM. Hearing is grossly intact. ORAL CAVITY: Normal oropharynx. THROAT: Mild erythema, no exudate NECK/THYROID: Neck supple, full range of motion, no cervical lymphadenopathy. LUNGS: Clear to auscultation bilaterally, no cough on exam. HEART: RRR without murmur, nl S1, S2, no S3 or S4. EXTREMITIES: No cyanosis or edema Initial Vital Signs Initial Vital Signs: Vital Signs Temperature 100.6 F H 12/21/17 17:46 Pulse Rate 75 12/21/17 17:46 Respiratory Rate 18 12/21/17 17:46 Blood Pressure 158/86 H 12/21/17 17:46 Pulse Oximetry 95 12/21/17 17:46 <William Cason DO - Last Filed: 12/22/17 02:49> Initial Vital Signs Initial Vital Signs: Vital Signs Temperature 100.6 F H 12/21/17 17:46 Pulse Rate 75 12/21/17 17:46 Respiratory Rate 18 12/21/17 17:46 Blood Pressure 158/86 H 12/21/17 17:46 Pulse Oximetry 95 12/21/17 17:46 Course <Marina Rose PA-C - Last Filed: 12/21/17 23:12> Additional Information: I reviewed findings and history with attending physician Dr. Cason who advised CT scan. We have reviewed results. He agrees reasonable to change antibiotic and have patient follow up with ENT. She is agreeable with this plan as well as to return if any worsening symptoms over the weekend. She has taken quinolone antibiotics in the past and tolerated well. I was able to instill ofloxacin drops in patient's ear after she had pain medication. Orders Ordered: ED Orders 12/21/17 19:35 CT mastoid temporal Stat 12/21/17 20:40 Basic Metabolic Panel Stat C-Reactive Protein Quant Stat Complete Blood Count AUTO DIFF Stat Erythrocyte Sedimentation Rate Stat Lactate (Lactic Acid) Stat Procalcitonin Stat Discontinued Medications Hydrocodone Bitart/Acetaminophen (Cedar 5/325) 2 tab PO NOW ONE Stop: 12/21/17 19:27 Last Admin: 12/21/17 19:40 Dose: 2 tab Hydrocodone Bitart/Acetaminophen (Vicodin Prepack) 1 bottle MISC SEEINSTR ONE Stop: 12/21/17 22:18 Last Admin: 12/21/17 22:43 Dose: 1 bottle Sodium Chloride (Normal Saline 0.9%) 1,000 mls @ 1,000 mls/hr IV BOLUS ONE Stop: 12/21/17 20:34 Last Infusion: 12/21/17 22:16 Dose: 0 mls/hr Admin: 12/21/17 21:13 Dose: 1,000 mls/hr Levofloxacin (Levaquin) 500 mg PO NOW ONE Stop: 12/21/17 21:35 Last Admin: 12/21/17 21:40 Dose: 500 mg Ofloxacin (Floxin 0.3% Otic) 5 drops EAR-LEFT NOW ONE Stop: 12/21/17 21:35 Last Admin: 12/21/17 21:46 Dose: 5 drops Vital Signs - 8 hr 12/21/17 19:40 12/21/17 20:32 12/21/17 22:14 Temperature 100.7 F H 97.9 F 97.9 F Pulse Rate 75 79 Respiratory Rate 18 16 Blood Pressure [Left Arm] 141/81 H 122/83 H Pulse Oximetry 97 99 <William Cason DO - Last Filed: 12/22/17 02:49> Orders Ordered: ED Orders 12/21/17 19:35 CT mastoid temporal Stat 12/21/17 20:40 Basic Metabolic Panel Stat C-Reactive Protein Quant Stat Complete Blood Count AUTO DIFF Stat Erythrocyte Sedimentation Rate Stat Lactate (Lactic Acid) Stat Procalcitonin Stat Discontinued Medications Hydrocodone Bitart/Acetaminophen (Cedar 5/325) 2 tab PO NOW ONE Stop: 12/21/17 19:27 Last Admin: 12/21/17 19:40 Dose: 2 tab Hydrocodone Bitart/Acetaminophen (Vicodin Prepack) 1 bottle MISC SEEINSTR ONE Stop: 12/21/17 22:18 Last Admin: 12/21/17 22:43 Dose: 1 bottle Sodium Chloride (Normal Saline 0.9%) 1,000 mls @ 1,000 mls/hr IV BOLUS ONE Stop: 12/21/17 20:34 Last Infusion: 12/21/17 22:16 Dose: 0 mls/hr Admin: 12/21/17 21:13 Dose: 1,000 mls/hr Levofloxacin (Levaquin) 500 mg PO NOW ONE Stop: 12/21/17 21:35 Last Admin: 12/21/17 21:40 Dose: 500 mg Ofloxacin (Floxin 0.3% Otic) 5 drops EAR-LEFT NOW ONE Stop: 12/21/17 21:35 Last Admin: 12/21/17 21:46 Dose: 5 drops Vital Signs - 8 hr 12/21/17 19:40 12/21/17 20:32 12/21/17 22:14 Temperature 100.7 F H 97.9 F 97.9 F Pulse Rate 75 79 Respiratory Rate 18 16 Blood Pressure [Left Arm] 141/81 H 122/83 H Pulse Oximetry 97 99 Medical Decision Making <Marina Rose PA-C - Last Filed: 12/21/17 23:12> Lab Data Result diagrams: 12/21/17 20:40 12/21/17 20:40 Lab Results 12/21/17 12/21/17 12/21/17 Range/Units 20:40 20:40 20:40 WBC 16.0 H (4.5-11.0) X10^3/uL RBC 4.57 (4.0-5.2) X10^6/uL Hgb 13.7 (12.0-16.0) g/dL Hct 41.0 (36-46) % MCV 89.7 (80-100) fL MCH 30.0 (26-34) PG MCHC 33.5 (30-36) % RDW 13.5 (11.6-14.8) % Plt Count 273 (150-400) X10^3/uL Neut % (Auto) 76.7 H (50-75) % Lymph % (Auto) 14.1 L (25-40) % [place] % (Auto) 8.3 (3-14) % Eos % (Auto) 0.2 L (2-4) % Baso % (Auto) 0.7 (0-2) % Neut # (Auto) 82258 H (2188-8425) /uL ESR 8 (0-20) MM/HR Sodium 136 L (137-145) mmol/L Potassium 4.2 (3.4-5.1) mmol/L Chloride 101 (98-107) mmol/L Carbon Dioxide 23 (22-32) mmol/L BUN 16 (7-17) mg/dL Creatinine 0.70 (0.52-1.04) mg/dL Estimated GFR > 60.0 (>60) mL/min BUN/Creatinine Ratio 22.9 H (6-22) Glucose 133 H (70-100) mg/dL Lactate (0.7-2.1) mmol/L Calcium 9.3 (8.4-10.2) mg/dL C-Reactive Protein 15.8 H (<1.0) mg/dL Procalcitonin < 0.05 (<0.5) ng/mL 12/21/17 Range/Units 20:40 WBC (4.5-11.0) X10^3/uL RBC (4.0-5.2) X10^6/uL Hgb (12.0-16.0) g/dL Hct (36-46) % MCV (80-100) fL MCH (26-34) PG MCHC (30-36) % RDW (11.6-14.8) % Plt Count (150-400) X10^3/uL Neut % (Auto) (50-75) % Lymph % (Auto) (25-40) % [place] % (Auto) (3-14) % Eos % (Auto) (2-4) % Baso % (Auto) (0-2) % Neut # (Auto) (7002-7761) /uL ESR (0-20) MM/HR Sodium (137-145) mmol/L Potassium (3.4-5.1) mmol/L Chloride (98-107) mmol/L Carbon Dioxide (22-32) mmol/L BUN (7-17) mg/dL Creatinine (0.52-1.04) mg/dL Estimated GFR (>60) mL/min BUN/Creatinine Ratio (6-22) Glucose (70-100) mg/dL Lactate 0.8 (0.7-2.1) mmol/L Calcium (8.4-10.2) mg/dL C-Reactive Protein (<1.0) mg/dL Procalcitonin (<0.5) ng/mL Imaging Data mastoid: Radiologist's impression: [place] [address] CT Scan Report Signed Patient: Julia Skinner MR#: [id number] : 1965 Acct:[id number] Age/Sex: 52 / F Date of Service: 12/21/17 Loc: Accession Number: [id number] Procedure: CT mastoid temporal Ordering Provider: Marina Rose P.A-C PROCEDURE: CT MASTOID TEMPORAL INDICATIONS: EAR INFECTION, OE, worsening ? malignant COMPARISON: None. TECHNIQUE: Noncontrast 0.6 mm thick direct axial and coronal sections acquired through each temporal bone separately. FINDINGS: Image quality: Excellent. RIGHT: External auditory canal: Canal has a normal appearance. Middle ear: The middle ear structures, including the ossicles and tympanic membrane, appear normal. No abnormal fluid or soft tissue density. Inner ear: Inner ear is normally formed and appears unremarkable. Facial nerve appears normal throughout is course. Mastoids: Scattered opacities noted in the right mastoid air cells. LEFT: External auditory canal: Canal has a normal appearance. Middle ear: The middle ear structures, including the ossicles and tympanic membrane, appear normal. Soft tissue density structure is noted in the left middle ear surrounding the left malleus and incus. No erosive changes identified near ossicles. Inner ear: Inner ear is normally formed and appears unremarkable. Facial nerve appears normal throughout its course. Mastoids: Opacities noted in the left mastoid air cells. MISCELLANEOUS: Visualized surrounding bones appear unremarkable. Visualized intracranial structures, including the cerebellopontine angle cisterns, appear normal. IMPRESSION: 1. No osseous erosive changes. 2. Small soft tissue density left middle ear lesion surrounding the left malleus and incus. Cholesteatoma cannot be excluded. 3. Scattered opacities in the mastoid air cells bilaterally. Please correlate with direct physical to differentiate serous fluid from an inflammatory process. 4. Study is optimized for visualization of the osseous anatomy of the mastoid portion of the temporal bones, the middle ears and inner ears. Necrotizing/malignant otitis externa not excluded by this study. Dictated by: Yumiko Rubio MD, PhD on 12/21/2017 at 20:34 Approved by: Yumiko Rubio MD, PhD on 12/21/2017 at 20:41 <William Cason, - Last Filed: 12/22/17 02:49> Lab Data Lab Results 12/21/17 12/21/17 12/21/17 Range/Units 20:40 20:40 20:40 WBC 16.0 H (4.5-11.0) X10^3/uL RBC 4.57 (4.0-5.2) X10^6/uL Hgb 13.7 (12.0-16.0) g/dL Hct 41.0 (36-46) % MCV 89.7 (80-100) fL MCH 30.0 (26-34) PG MCHC 33.5 (30-36) % RDW 13.5 (11.6-14.8) % Plt Count 273 (150-400) X10^3/uL Neut % (Auto) 76.7 H (50-75) % Lymph % (Auto) 14.1 L (25-40) % [place] % (Auto) 8.3 (3-14) % Eos % (Auto) 0.2 L (2-4) % Baso % (Auto) 0.7 (0-2) % Neut # (Auto) 92988 H (6656-6470) /uL ESR 8 (0-20) MM/HR Sodium 136 L (137-145) mmol/L Potassium 4.2 (3.4-5.1) mmol/L Chloride 101 (98-107) mmol/L Carbon Dioxide 23 (22-32) mmol/L BUN 16 (7-17) mg/dL Creatinine 0.70 (0.52-1.04) mg/dL Estimated GFR > 60.0 (>60) mL/min BUN/Creatinine Ratio 22.9 H (6-22) Glucose 133 H (70-100) mg/dL Lactate (0.7-2.1) mmol/L Calcium 9.3 (8.4-10.2) mg/dL C-Reactive Protein 15.8 H (<1.0) mg/dL Procalcitonin < 0.05 (<0.5) ng/mL 12/21/17 Range/Units 20:40 WBC (4.5-11.0) X10^3/uL RBC (4.0-5.2) X10^6/uL Hgb (12.0-16.0) g/dL Hct (36-46) % MCV (80-100) fL MCH (26-34) PG MCHC (30-36) % RDW (11.6-14.8) % Plt Count (150-400) X10^3/uL Neut % (Auto) (50-75) % Lymph % (Auto) (25-40) % [place] % (Auto) (3-14) % Eos % (Auto) (2-4) % Baso % (Auto) (0-2) % Neut # (Auto) (1131-4526) /uL ESR (0-20) MM/HR Sodium (137-145) mmol/L Potassium (3.4-5.1) mmol/L Chloride (98-107) mmol/L Carbon Dioxide (22-32) mmol/L BUN (7-17) mg/dL Creatinine (0.52-1.04) mg/dL Estimated GFR (>60) mL/min BUN/Creatinine Ratio (6-22) Glucose (70-100) mg/dL Lactate 0.8 (0.7-2.1) mmol/L Calcium (8.4-10.2) mg/dL C-Reactive Protein (<1.0) mg/dL Procalcitonin (<0.5) ng/mL Discharge Plan Departure Patient Disposition: Home, Self-Care Clinical Impression: Otitis externa, Otitis media Discharge Date/Time: 12/21/17 22:46 Interventions: ED Discharge Assessment Last Done: 12/21/17 22:45 Instructions: DI for Otitis Externa, DI for Otitis Media (Middle Ear Infection) -Child Activity Restrictions/Additional Instructions: Return as we talked about if you have any acutely worsening symptoms.. Your amoxicillin and neomycin eardrops. Take your 2nd levofloxacin pill tomorrow, and also start the ofloxin eardrop prescription instead. You can use the eye drops I gave you tonight as well (they are the same concentration). You can take the pain pills that we gave you tonight and in the morning if needed. Then change back to Tylenol. Please call [facility] 1st thing on Sunday morning and let them know you were seen in the emergency room with a severe infection and we referred you to follow up with them, they should be able to see you in 1 of their offices Prescriptions: New ofloxacin 0.3 % drops 10 drop EAR-BOTH DAILY Qty: 10 RF: 0 levofloxacin 500 mg tablet 500 mg PO DAILY 7 Days RF: 0 No Action ACETAMINOPHEN (#TYLENOL) 1,000 mg PO TID Qty: 0 RF: 0 clonazepam 0.5 MG tablet 1 mg PO HS Qty: 0 RF: 0 OXYCODONE HYDROCHLORIDE (OXYCODONE IR) 15 mg PO TID Qty: 0 RF: 0 sumatriptan succinate [Imitrex] 6 MG/0.5 ML solution 6 mg SQ PRN Qty: 0 RF: 0 topiramate [Topamax] 100 MG tablet 300 mg PO BID Qty: 0 RF: 0 LIDOCAINE 1 patch Topical QDAY Qty: 0 RF: 0 [id number]-jxfydluvd-PJ 3.5-10,000-1 mg/mL-unit/mL-% solution 4 drop EAR-BOTH QID 7 Days Qty: 10 RF: 0 amoxicillin 500 mg tablet 500 mg PO BID Qty: 14 RF: 0 Referrals: Hernan Jones MD [Physician] - Sandra Paez MD [Primary Care Provider] - <William Cason DO - Last Filed: 12/22/17 02:49> Cosign ED Attending Minnieature Attestation: I was immediately available in the department for consultation. Documentation has been reviewed. I agree with assessment and plan.
[2017-12-21 20:32] VITALS: BP 141/81; PULSE 75; RESP 18; TEMP 36.6; O2SAT 97
[2017-12-21 20:58] LABS: Add Manual Diff / Slide Review NO; Basophils Percent Auto 0.7 % (0-2); Eosinophils Percent Auto 0.2 % (2-4); Hemoglobin 13.7 g/dL (12.0-16.0); Lymphocytes Percent Auto 14.1 % (25-40); Mean Corpuscular HGB Conc 33.5 % (30-36); Mean Corpuscular Volume 89.7 fL (80-100); Monocytes Percent Auto 8.3 % (3-14); Neutrophils Absolute Auto 12300 /uL (3000-5900); Neutrophils Percent Auto 76.7 % (50-75); Platelet Count 273 X10^3/uL (150-400); Red Blood Cell Count 4.57 X10^6/uL (4.0-5.2); Red Cell Distribution Width 13.5 % (11.6-14.8)
[2017-12-21] MEDS: SODIUM CHLORIDE 0.9% 1,000 ML 1000 ML IV (21:13)
[2017-12-21 21:22] LABS: Erythrocyte Sedimentation Rate 8 MM/HR (0-20)
[2017-12-21 21:23] LABS: Lactate (Lactic Acid) 0.8 mmol/L (0.7-2.1)
[2017-12-21 21:25] LABS: BUN Creatinine Ratio 22.9 (6-22); Blood Urea Nitrogen 16 mg/dL (7-17); Calcium 9.3 mg/dL (8.4-10.2); Carbon Dioxide 23 mmol/L (22-32); Chloride 101 mmol/L (98-107); Estimated Glomerular Filt Rate > 60.0 mL/min (>60); Glucose 133 mg/dL (70-100); HEMOLYSIS < 15 (0-50); Potassium 4.2 mmol/L (3.4-5.1); Sodium 136 mmol/L (137-145)
[2017-12-21 21:37] LABS: C-Reactive Protein Quant 15.8 mg/dL (<1.0)
[2017-12-21] MEDS: levoFLOXacin 500 MG TABLET PO (21:40)
[2017-12-21] MEDS: OFLOXACIN 0.3% OTIC 5 ML 5 DROPS EAR-LEFT (21:46)
[2017-12-21 22:04] LABS: Procalcitonin < 0.05 ng/mL (<0.5)
[2017-12-21 22:14] VITALS: BP 122/83; PULSE 79; RESP 16; TEMP 36.6; O2SAT 99
[2017-12-21] MEDS: HYDROCODONE/ACET 5/325 PREPACK 1 BOTTLE MISC (22:43)
== END 2017-12-21 22:46 | disposition home or self-care (01) ==
PROVIDERS: Emergency Provider Internal Medicine; PCP Family Medicine
DX: H66.92 Otitis media, unspecified, left ear (principal); H60.92 Unspecified otitis externa, left ear
CPT/HCPCS: 36591; 70480; 80048; 83605; 84145; 85025; 85651; 86140; 96360; 99283; 99284

== ENCOUNTER → 2018-06-19 09:53 | Outpatient (CLI) | payer OTHER, MEDICAID, SELFPAY ==
[2018-06-19 10:57] LABS: Alanine Aminotransferase 33 IU/L (9-52); Albumin 4.5 g/dL (3.5-5.0); Albumin Globulin Ratio 1.5 (1.0-2.8); Alkaline Phosphatase 61 U/L (38-126); Aspartate Aminotransferase 23 IU/L (14-36); BUN Creatinine Ratio 22.2 (6-22); Bilirubin Total 0.7 mg/dL (0.2-1.3); Blood Urea Nitrogen 20 mg/dL (7-17); Carbon Dioxide 28 mmol/L (22-32); Chloride 102 mmol/L (98-107); Estimated Glomerular Filt Rate > 60.0 mL/min (>60); Glucose 137 mg/dL (70-100); HEMOLYSIS 24 (0-50); Potassium 5.3 mmol/L (3.4-5.1); Sodium 140 mmol/L (137-145); Total Protein 7.5 g/dL (6.3-8.2)
[2018-06-19 11:06] LABS: Hemoglobin A1C% w Est Avg Glu 6.8 % (4.0-6.0)
[2018-06-19 11:27] LABS: TSH w/ Reflex to FT4 1.46 uIU/mL (0.47-4.68)
[2018-06-19 11:51] LABS: Creatinine Urine Random 177.9 mg/dL
[2018-06-19 11:56] LABS: Microalbumi Creatinin Ratio Ur 7.8 ug/mg CR (<30); Microalbumin Urine Random 1.4 mg/dL (0-1.6)
== END ==
PROVIDERS: PCP Internal Medicine; Visit Provider Internal Medicine
DX: E66.01 Morbid (severe) obesity due to excess calories (principal); E11.9 Type 2 diabetes mellitus without complications
CPT/HCPCS: 36415; 80053; 82043; 82570; 83036; 84443

== ENCOUNTER → 2018-06-26 11:22 | Outpatient (CLI) | payer OTHER, MEDICAID, SELFPAY ==
[2018-06-26 12:31] LABS: Blood Urea Nitrogen 16 mg/dL (7-17); Carbon Dioxide 29 mmol/L (22-32); Chloride 101 mmol/L (98-107); Estimated Glomerular Filt Rate 58.5 mL/min (>60); Glucose 124 mg/dL (70-100); HEMOLYSIS < 15 (0-50); Sodium 140 mmol/L (137-145)
== END ==
PROVIDERS: PCP Internal Medicine; Visit Provider Internal Medicine
DX: E78.5 Hyperlipidemia, unspecified (principal)
CPT/HCPCS: 36415; 80048

== ENCOUNTER → 2019-01-16 08:35 | Outpatient (CLI) | payer OTHER, MEDICAID, SELFPAY ==
[2019-01-16 09:15] LABS: Appearance Urine UA CLEAR; Bilirubin Urine UA NEGATIVE (NEGATIVE); Color Urine UA YELLOW; Glucose Urine UA NEGATIVE (Negative); Ketones Urine UA NEGATIVE (NEGATIVE); Leukocyte Esterase Urine UA NEGATIVE (NEGATIVE); Nitrite Urine UA NEGATIVE (Negative); Occult Blood Urine UA TRACE-LYSED (Negative); Protein Urine UA NEGATIVE (Negative); Specific Gravity Urine UA 1.025 (1.000-1.035); Urobilinogen Urine UA 0.2 E.U./dL (0.2)
[2019-01-16 09:17] LABS: Add Manual Diff / Slide Review NO; Basophils Absolute Auto 100 /uL (0-100); Basophils Percent Auto 0.6 % (0-2); Eosinophils Absolute Auto 200 /uL (0-450); Eosinophils Percent Auto 2.7 % (2-4); Hematocrit 45.8 % (36-46); Hemoglobin 15.2 g/dL (12.0-16.0); Lymphocytes Absolute Auto 2700 /uL (1100-4500); Lymphocytes Percent Auto 31.1 % (25-40); Mean Corpuscular HGB Conc 33.2 % (30-36); Mean Corpuscular Hemoglobin 29.7 PG (26-34); Mean Corpuscular Volume 89.6 fL (80-100); Monocytes Absolute Auto 600 /uL (0-900); Monocytes Percent Auto 6.9 % (3-14); Neutrophils Absolute Auto 5100 /uL (1500-7000); Neutrophils Percent Auto 58.7 % (50-75); Platelet Count 292 X10^3/uL (150-400); Red Blood Cell Count 5.11 X10^6/uL (4.0-5.2); White Blood Cell Count 8.7 X10^3/uL (4.5-11.0)
[2019-01-16 09:24] LABS: Hemoglobin A1C% w Est Avg Glu 6.4 % (4.0-6.0)
[2019-01-16 09:44] LABS: Alanine Aminotransferase 25 IU/L (9-52); Albumin 4.3 g/dL (3.5-5.0); Albumin Globulin Ratio 1.4 (1.0-2.8); Alkaline Phosphatase 69 U/L (38-126); Aspartate Aminotransferase 18 IU/L (14-36); BUN Creatinine Ratio 18.9 (6-22); Bilirubin Total 0.7 mg/dL (0.2-1.3); Blood Urea Nitrogen 17 mg/dL (7-17); Calcium 9.5 mg/dL (8.4-10.2); Carbon Dioxide 30 mmol/L (22-32); Chloride 103 mmol/L (98-107); Cholesterol 156 mg/dL (140-199); Estimated Glomerular Filt Rate > 60.0 mL/min (>60); Glucose 152 mg/dL (70-100); HDL Cholesterol 39 mg/dL (40-60); HEMOLYSIS < 15 (0-50); LDL Cholesterol Calculated 87 mg/dL (<100); Potassium 5.2 mmol/L (3.4-5.1); Sodium 139 mmol/L (137-145); Total Protein 7.3 g/dL (6.3-8.2); Triglycerides 150 mg/dL (35-150)
[2019-01-16 10:21] LABS: Thyroid Stimulating Hormone 2.41 uIU/mL (0.47-4.68)
== END ==
PROVIDERS: PCP Family Medicine; Visit Provider Family Medicine
DX: E11.9 Type 2 diabetes mellitus without complications (principal); I10 Essential (primary) hypertension; Z00.00 Encounter for general adult medical examination without abnormal findings; K21.9 Gastro-esophageal reflux disease without esophagitis; M79.7 Fibromyalgia
CPT/HCPCS: 36415; 80053; 80061; 81003; 83036; 84443; 85025

== ENCOUNTER → 2019-03-07 11:56 | Outpatient (CLI) | payer OTHER, MEDICAID, SELFPAY ==
[2019-03-07 12:48] LABS: Blood Urea Nitrogen 19 mg/dL (7-17); Calcium 9.5 mg/dL (8.4-10.2); Carbon Dioxide 29 mmol/L (22-32); Chloride 100 mmol/L (98-107); Estimated Glomerular Filt Rate 58.2 mL/min (>60); Glucose 109 mg/dL (70-100); HEMOLYSIS 24 (0-50); Potassium 4.8 mmol/L (3.4-5.1); Sodium 140 mmol/L (137-145)
== END ==
PROVIDERS: PCP Family Medicine; Visit Provider Family Medicine
DX: E11.9 Type 2 diabetes mellitus without complications (principal); E87.5 Hyperkalemia; I10 Essential (primary) hypertension
CPT/HCPCS: 36415; 80048

== ENCOUNTER → 2019-08-28 07:49 | Outpatient (CLI) | payer OTHER, MEDICAID, SELFPAY ==
[2019-08-28 08:25] LABS: Hemoglobin A1C% w Est Avg Glu 6.7 % (4.0-6.0)
[2019-08-28 08:51] LABS: Alanine Aminotransferase 18 IU/L (<35); Albumin 4.4 g/dL (3.5-5.0); Albumin Globulin Ratio 1.6 (1.0-2.8); Alkaline Phosphatase 64 U/L (38-126); Aspartate Aminotransferase 17 IU/L (14-36); BUN Creatinine Ratio 17.5 (6-22); Bilirubin Total 0.9 mg/dL (0.2-1.3); Blood Urea Nitrogen 14 mg/dL (7-17); Calcium 9.4 mg/dL (8.4-10.2); Carbon Dioxide 28 mmol/L (22-32); Chloride 104 mmol/L (98-107); Cholesterol 158 mg/dL (140-199); Estimated Glomerular Filt Rate > 60.0 mL/min (>60); Globulin 2.8 g/dL (1.7-4.1); Glucose 140 mg/dL (70-100); HDL Cholesterol 36 mg/dL (40-60); HEMOLYSIS < 15 (0-50); LDL Cholesterol Calculated 88 mg/dL (<100); Potassium 4.9 mmol/L (3.4-5.1); Sodium 142 mmol/L (137-145); Total Protein 7.2 g/dL (6.3-8.2); Triglycerides 170 mg/dL (35-150)
[2019-08-28 09:21] LABS: TSH w/ Reflex to FT4 2.23 uIU/mL (0.47-4.68)
[2019-08-28 09:54] LABS: Creatinine Urine Random 103.2 mg/dL
[2019-08-28 10:00] LABS: Microalbumi Creatinin Ratio Ur 76.5 ug/mg CR (<30); Microalbumin Urine Random 7.9 mg/dL (0-1.6)
== END ==
PROVIDERS: PCP Internal Medicine; Referring Provider Internal Medicine; Visit Provider Internal Medicine
DX: E11.9 Type 2 diabetes mellitus without complications (principal); I10 Essential (primary) hypertension
CPT/HCPCS: 36415; 80053; 80061; 82043; 82570; 83036; 84443

== ENCOUNTER → 2020-01-19 09:58 | Outpatient (CLI) | payer OTHER, MEDICAID, SELFPAY ==
--- NOTE | 2020-01-19 09:59 | DI.CT.S_ITS ---
PROCEDURE: CT ABDOMEN WO CON INDICATIONS: Pre-surgical planning TECHNIQUE: After the administration of oral contrast, 5 mm thick sections acquired from the diaphragms to the iliac crests. 5 mm coronal and sagittal reformats were then performed. For radiation dose reduction, the following was used: automated exposure control, adjustment of mA and/or kV according to patient size. COMPARISON: None. FINDINGS: Image quality: Excellent. Lung bases: Lung bases are clear. Heart size is normal. Solid organs: Liver is normal in size. Gallbladder appears moderately contracted . Pancreas is normal in contours. Spleen is normal in size. No adrenal nodules. Both kidneys are normal in size, without hydronephrosis or nephrolithiasis. Peritoneum and bowel: Bowel loops demonstrate normal wall thickness and caliber. No free fluid or air. Nodes and vessels: No retroperitoneal or mesenteric adenopathy by size criteria. Aorta and inferior vena cava are normal in size. Bones: No suspicious bony lesions. No vertebral body compression fractures. Miscellaneous: Note is made of a midline periumbilical ventral hernia containing fat, presumably omental fat, through a peritoneal defect at that site measuring up to 2.3 cm in diameter. The maximal diameter of the fat herniation is 3.3 cm. IMPRESSION: Midline periumbilical hernia containing fat, presumably a portion of the omentum, without evidence of incarceration or strangulation. Through the remainder of the abdomen and visualized pelvis no abnormality is seen. Dictated by: Dario Walters M.D. on 01/19/2020 at 12:05 Approved by: Dario Walters M.D. on 01/19/2020 at 12:09
== END ==
PROVIDERS: PCP Internal Medicine; Referring Provider Surgery; Visit Provider Surgery
DX: K42.0 Umbilical hernia with obstruction, without gangrene (principal)
CPT/HCPCS: 74150

== ENCOUNTER → 2020-03-12 07:45 | Outpatient (CLI) | payer OTHER, MEDICAID, SELFPAY ==
[2020-03-12 08:18] LABS: Hemoglobin A1C% w Est Avg Glu 7.6 % (4.0-6.0)
[2020-03-12 08:20] LABS: BUN Creatinine Ratio 18.5 (6-22); Blood Urea Nitrogen 15 mg/dL (7-17); Calcium 9.2 mg/dL (8.4-10.2); Carbon Dioxide 29 mmol/L (22-32); Chloride 102 mmol/L (98-107); Estimated Glomerular Filt Rate > 60.0 mL/min (>60); Glucose 192 mg/dL (70-100); HEMOLYSIS < 15 (0-50); Potassium 4.7 mmol/L (3.4-5.1); Sodium 140 mmol/L (137-145)
== END ==
PROVIDERS: PCP Internal Medicine; Referring Provider Internal Medicine; Visit Provider Internal Medicine
DX: E11.9 Type 2 diabetes mellitus without complications (principal); I10 Essential (primary) hypertension
CPT/HCPCS: 36415; 80048; 83036

== ENCOUNTER → 2020-06-14 10:56 | Outpatient (CLI) | payer OTHER, MEDICAID, SELFPAY ==
[2020-06-14 12:23] LABS: Hemoglobin A1C% w Est Avg Glu 8.2 % (4.0-6.0)
[2020-06-14 12:33] LABS: BUN Creatinine Ratio 23.6 (6-22); Blood Urea Nitrogen 17 mg/dL (7-17); Calcium 8.9 mg/dL (8.4-10.2); Carbon Dioxide 32 mmol/L (22-32); Chloride 100 mmol/L (98-107); Estimated Glomerular Filt Rate > 60.0 mL/min (>60); Glucose 241 mg/dL (70-100); HEMOLYSIS < 15 (0-50); Potassium 4.8 mmol/L (3.4-5.1); Sodium 136 mmol/L (137-145)
== END ==
PROVIDERS: PCP Family Medicine; Referring Provider Internal Medicine; Visit Provider Internal Medicine
DX: E11.9 Type 2 diabetes mellitus without complications (principal)
CPT/HCPCS: 36415; 80048; 83036

== ENCOUNTER → 2020-08-05 07:57 | Outpatient (CLI) | payer OTHER, MEDICAID, SELFPAY ==
[2020-08-05 08:34] LABS: Hemoglobin A1C% w Est Avg Glu 7.9 % (4.0-6.0)
[2020-08-05 09:00] LABS: Alanine Aminotransferase 23 IU/L (<35); Albumin 4.1 g/dL (3.5-5.0); Albumin Globulin Ratio 1.4 (1.0-2.8); Alkaline Phosphatase 55 U/L (38-126); Aspartate Aminotransferase 22 IU/L (14-36); BUN Creatinine Ratio 23.2 (6-22); Bilirubin Total 0.6 mg/dL (0.2-1.3); Blood Urea Nitrogen 19 mg/dL (7-17); Calcium 9.1 mg/dL (8.4-10.2); Carbon Dioxide 32 mmol/L (22-32); Chloride 103 mmol/L (98-107); Estimated Glomerular Filt Rate > 60.0 mL/min (>60); Glucose 160 mg/dL (70-100); HEMOLYSIS < 15 (0-50); Potassium 4.8 mmol/L (3.4-5.1); Sodium 138 mmol/L (137-145); Total Protein 7.1 g/dL (6.3-8.2)
[2020-08-05 09:28] LABS: Thyroid Stimulating Hormone 2.26 uIU/mL (0.47-4.68)
== END ==
PROVIDERS: PCP Family Medicine; Referring Provider Family Medicine; Visit Provider Family Medicine
DX: E11.65 Type 2 diabetes mellitus with hyperglycemia (principal); M79.7 Fibromyalgia; R53.83 Other fatigue
CPT/HCPCS: 36415; 80053; 83036; 84443

== ENCOUNTER 2020-08-08 17:06 | Emergency (ER) | payer OTHER, MEDICAID, SELFPAY ==
--- NOTE | 2020-08-08 17:05 | DI.RAD.S_ITS ---
PROCEDURE: XR HAND RT MIN 3V INDICATIONS: fall with hand/wrist pain TECHNIQUE: 3 views of the hand(s) acquired. COMPARISON: None. FINDINGS: Bones: There is a mildly displaced, slightly impacted fracture of the distal radius, with intra-articular involvement. No associated distal ulnar fracture can be seen. No radiocarpal dislocation can be seen. No fractures of the carpal bones can be seen. Age-appropriate bony degenerative changes are seen. Soft tissues: No suspicious soft tissue calcifications. IMPRESSION: Mildly displaced distal radial fracture, with intra-articular involvement. Dictated by: Librado Nelson M.D. on 08/08/2020 at 16:31 Approved by: Librado Nelson M.D. on 08/08/2020 at 16:33
--- NOTE | 2020-08-08 17:05 | DI.RAD.S_ITS ---
PROCEDURE: XR WRIST RT MIN 3V INDICATIONS: pain with fall, swelling over distal radius TECHNIQUE: 4 views of the wrist were acquired. COMPARISON: [facility], CR, XR HAND RT MIN 3V, 08/08/2020, 17:10. [facility], CR, XR ANKLE LT MIN 3V, 08/08/2020, 17:10. FINDINGS: Bones: There is a distal radius fracture, with mild displacement. There is intra-articular involvement seen. No fracture of the distal ulna can be seen. No carpal bone fracture is detected. Degenerative changes are seen throughout, which are most prominent involving the 1st carpometacarpal joint. Milder degenerative changes are seen elsewhere. Scaphoid view: No navicular fractures are seen. Soft tissues: No suspicious soft tissue calcifications. IMPRESSION: Mildly displaced distal radius fracture, with intra-articular involvement. Dictated by: Librado Nelson M.D. on 08/08/2020 at 16:33 Approved by: Librado Nelson M.D. on 08/08/2020 at 16:34
--- NOTE | 2020-08-08 17:05 | DI.RAD.S_ITS ---
PROCEDURE: XR ANKLE LT MIN 3V INDICATIONS: fall with ankle pain TECHNIQUE: 3 views of the ankle were acquired. COMPARISON: [facility], CR, FOOT COMP MIN 3VW (LT), 02/26/2014, 11:15. [facility], CR, XR HAND RT MIN 3V, 08/08/2020, 17:10. [facility], CR, XR WRIST RT MIN 3V, 08/08/2020, 17:10. FINDINGS: Bones: There is a minimally displaced distal fibular fracture. No additional fractures or dislocations. Ankle mortise is normally aligned. No suspicious bony lesions. The talar dome demonstrates no julio c abnormality. Soft tissues: Generalized soft tissue swelling is seen. IMPRESSION: Minimally displaced distal fibular fracture, with associated soft tissue swelling. If it would be helpful for clinical management decision making, please consider a dedicated ankle CT for further evaluation. Dictated by: Librado Nelson M.D. on 08/08/2020 at 16:34 Approved by: Librado Nelson M.D. on 08/08/2020 at 16:36
[2020-08-08 17:08] VITALS: BP 163/88; PULSE 85; RESP 16; TEMP 37.9; O2SAT 96; BMI 46.7
--- NOTE | 2020-08-08 17:22 | ED.FALL ---
HPI - Fall General Chief Complaint: Extremity Injury, Lower Stated Complaint: Fall in snow Time Seen by Provider: 08/08/20 17:08 Source: patient and EMS Mode of arrival: EMS Limitations: no limitations History of Present Illness HPI Narrative: 55-year-old female nonsmoker with noncontributory medical history presents by EMS for the evaluation of left ankle and right wrist pain after a ground level fall while slipping in the snow just prior to arrival. She denies any head, neck or back pain. She denies any chest pain or shortness of breath. Both ankle and wrist demonstrates swelling, increased pain with range of motion and improvement with rest. She denies any numbness, tingling or weakness. She denies any provoking symptoms to her fall. MD complaint: fall Onset (ago): minute(s) Fall from: standing Fall witnessed: no Place fall occurred: home Loss of consciousness: none Prolonged down time: no Symptoms prior to fall: none Context: tripped/slipped Location of injury - extremities: Left: ankle Severity: moderate Quality: aching Associated symptoms (after fall): denies Related Data Home Medications Medication Instructions Recorded Confirmed diphenhydramine HCl 25 mg capsule 25 mg PO BEDTIME PRN 12/13/18 07/28/20 magnesium hydroxide 400 mg (170 mg mg PO tab 12/13/18 07/28/20 magnesium) chewable tablet mecobalamin (vitamin B12) 1,000 1,000 mcg SL DAILY 06/30/19 07/28/20 mcg disintegrating tablet,sublingual norethindrone acetate 5 mg tablet 5 mg PO DAILY 07/28/19 07/28/20 cholecalciferol (vitamin D3) 50 100 mcg PO DAILY cap 03/15/20 07/28/20 mcg (2,000 unit) capsule acetaminophen 500 mg tablet 500 mg PO Q6H PRN 06/14/20 07/28/20 Previous Rx's Medication Instructions Recorded Disabled Parking Permit #1 ea 04/22/19 fluticasone propionate 50 1 spray NASAL DAILY #18.2 gram 04/29/19 mcg/actuation nasal spray,suspension albuterol sulfate 90 mcg/actuation 1 puff INHALATION Q6H PRN #8.5 gram 06/23/20 aerosol inhaler pioglitazone 15 mg tablet 15 mg PO DAILY #90 tab 06/24/20 losartan 50 mg tablet See Rx Instructions .ROUTE 07/26/20 .COMPLEX #90 tab triamterene 37.5 1 tab PO DAILY #30 tab 07/28/20 mg-hydrochlorothiazide 25 mg tablet gabapentin 300 mg capsule 600 mg PO BEDTIME #90 cap 07/30/20 sitagliptin 50 mg-metformin 500 mg 1 tab PO BID #180 tab 08/01/20 tablet propranolol 40 mg tablet 40 mg PO DAILY #90 tab 08/02/20 hydrocodone-acetaminophen 1 tab PO Q4-6H PRN #20 tab 08/08/20 Allergies Allergy/AdvReac Type Severity Reaction Status Date / Time bupropion [From Wellbutrin] AdvReac Severe Body pain, Verified 07/28/20 09:05 suicidality fluoxetine [From Prozac] AdvReac Severe Depression Verified 07/28/20 09:05 Tricyclic Compounds AdvReac Severe Depression Verified 07/28/20 09:05 varenicline [From Chantix] AdvReac Severe Extreme Verified 07/28/20 09:05 depression venlafaxine AdvReac Severe Depression Verified 07/28/20 09:05 ibuprofen AdvReac Intermediate Abdominal Verified 07/28/20 09:05 Pain metformin AdvReac Intermediate GI stomach Verified 07/28/20 09:05 pain methocarbamol AdvReac Intermediate Migraine Verified 07/28/20 09:05 tizanidine AdvReac Intermediate Migraine Verified 07/28/20 09:05 lisinopril AdvReac Mild cough Verified 07/28/20 09:05 anti depressants AdvReac Uncoded 08/08/20 17:13 Muscle relaxants AdvReac Headache Uncoded 08/08/20 17:12 Review of Systems Constitutional Constitutional: Denies chills, Denies fatigue, Denies fever(s), Denies frequent falls, Denies lethargy and Denies weakness Eyes Eyes: Denies change in vision, Denies eye discharge, Denies irritation and Denies loss of vision ENT Ears, Nose, Mouth, and Throat: Denies change in voice, Denies dizziness, Denies neck pain, Denies sore throat and Denies throat swelling Cardiovascular Cardiovascular: Denies chest pain, Denies irregular heart rhythm, Denies lightheadedness, Denies palpitations, Denies dyspnea, Denies dyspnea on exertion and Denies orthopnea Respiratory Respiratory: Denies cough, Denies dyspnea, Denies dyspnea on exertion and Denies wheezing Gastrointestinal Gastrointestinal: Denies abdominal pain, Denies change in bowel habits, Denies diarrhea, Denies nausea and Denies vomiting Musculoskeletal Musculoskeletal: Reports abnormal gait, Reports arthralgias, Reports joint swelling, Reports limited range of motion, Denies neck pain and Denies numbness Integumentary/Breasts Skin/Breast: Denies pruritus, Denies erythema, Denies rash and Denies wounds Neurologic Neurologic: Reports abnormal gait, Denies behavioral changes, Denies confusion, Denies dizziness, Denies frequent falls, Denies loss of vision, Denies numbness and Denies weakness Psychiatric Psychiatric: Denies anxiety, Denies behavioral changes, Denies confusion, Denies depression, Denies homicidal ideation and Denies suicidal ideation Endocrine Endocrine: Denies fatigue, Denies flushing and Denies palpitations Hematologic/Lymphatic Hematologic/Lymphatic: Denies easy bruising Allergic/Immunologic Allergic/Immunologic: Denies urticaria, Denies throat swelling and Denies wheezing Patient History Medical History Acne Anxiety (~1995) Asthma Chronic back pain (~2013) Chronic cough (~2013) COPD (chronic obstructive pulmonary disease) (~2009) Cystocele Depression (~1995) Diabetes (~2017) Diabetic nephropathy Fibromyalgia (~1995) Foot pain GERD (gastroesophageal reflux disease) (~1999) Headache HTN (hypertension) Hyperglycemia Insomnia Leg edema Migraines Diez's neuroma Osteoporosis (~1996) Posterior vaginal wall prolapse (~2013) Rectocele Serotonin syndrome Tooth pain Type 2 diabetes mellitus Type 2 diabetes mellitus with hyperglycemia Umbilical hernia Uterine prolapse Vision disorder Surgical History Anesthesia History of bunionectomy (~1996) History of bunionectomy (~1981) History of reconstructive repair of rectocele (07/22/19) History of shoulder surgery (~2009) History of tubal ligation (~1992) Shoulder bursitis (~2010) Status post hysteroscopic myomectomy Family History Father Diabetes mellitus Hypertension Mother Diabetes mellitus Grandfather Pneumonia Grandmother Diabetes mellitus Grandfather Cancer Diabetes mellitus Grandmother Diabetes mellitus Social History (Reviewed 08/08/20 @ 17:24 by GIRMA Santos marital status: unmarried,living together household members: significant other Smoking Status: Current every day smoker alcohol intake: never substance use type: marijuana (THC Vape ) Smoking Status: Current every day smoker Substance Use Type: marijuana Exam Narrative Exam Narrative: GEN: AOx3 and in mild distress, GCS 15 HEAD: Atraumatic NECK: No midline bony tenderness, step-offs or pain with range of motion EYES: Pupils are equal, round, and reactive to light and accommodation. Extraoccular muscles are intact bilaterally. There is no subconjunctival hemorrhage or exudate. CHEST: Lungs are clear to auscultation bilaterally and free of wheezes, rales, or rhonchi. Heart rate is regular rhythm, there are no murmurs, clicks, rubs, or gallops. There is no chest wall tenderness. ABD: Abdomen is soft and nontender. There is no guarding or rebound. Bowel sounds are normal in all 4 quadrants. There is no mass or organomegaly. EXT: Left ankle with swelling over bilateral malleoli, increased pain with range of motion. No ligamentous instability. Cap refill less than 2 seconds. Distal radius right arm swollen, tender with mild ecchymosis, increased pain with range of motion. Closed, neurovascularly intact Full painless ROM of all extremities with no loss of sensation or strength. SKIN: Warm, pink, and dry. No erythema or rash Initial Vital Signs Initial Vital Signs: Vital Signs Temperature 100.2 F H 08/08/20 17:08 Pulse Rate 85 08/08/20 17:08 Respiratory Rate 16 08/08/20 17:08 Blood Pressure 163/88 H 08/08/20 17:08 Pulse Oximetry 96 08/08/20 17:08 Course Orders Ordered: Discontinued Medications Hydrocodone Bitart/Acetaminophen (Hydrocodone/Acet 5/325 Prepack) 1 bottle MISC SEEINSTR ONE Stop: 08/08/20 17:34 Last Admin: 08/08/20 18:05 Dose: 1 bottle Documented by: [facility] Hydrocodone Bitart/Acetaminophen (Hydrocodone/Acet 5/325 Tablet) 2 tab PO NOW ONE Stop: 08/08/20 18:02 Last Admin: 08/08/20 18:05 Dose: 2 tab Documented by: [facility] Consultations Consultation #1: discussed with on-call ortho Jackie) who is in agreement with plan to place sugartong/sling on wrist, boot on ankle, dispo with pain meds, return precautions and follow up information to call his office for appointment this week Vital Signs Vital signs: Vital Signs - 8 hr 08/08/20 17:08 Temperature 100.2 F H Pulse Rate 85 Respiratory Rate 16 Blood Pressure 163/88 H Pulse Oximetry 96 Discharge Plan Departure Patient Disposition: Home Clinical Impression: Right wrist fracture Qualifiers: Encounter type: initial encounter Fracture type: closed Qualified Code(s): S62.101A - Fracture of unspecified carpal bone, right wrist, initial encounter for closed fracture Closed fibular fracture Qualifiers: Encounter type: initial encounter Fibula location: distal Fracture morphology: unspecified fracture morphology Laterality: left Qualified Code(s): S82.832A - Other fracture of upper and lower end of left fibula, initial encounter for closed fracture Instructions: DI for Wrist Fracture Activity Restrictions/Additional Instructions: *You have been diagnosed with [minimally displaced right distal radius fracture (wrist) as well as a small chip fracture of your left ankle] *What to do: *Take medications as directed: Prescriptions have been electronically transmitted to your pharmacy *Follow up with [facility] in 2-3 days, call for an appointment. Let them know you were seen in the Emergency Department and that we ask that you be seen in follow up *Return to ER if you should have any new, worsening or concerning symptoms, such as [increasing pain, swelling, numbness, tingling or other bothersome symptoms Splint Care: Keep splint clean and dry. Elevated affected body part to decrease swelling. OK to use ice pack on the affected body part. Use for 15-20 minutes each time, for 5-6x per day. If you develop worsening pain, numbness, tingling, discoloration of the affected body part, loosen the splint by loosening the TISHA wrap, and either see your doctor for an urgent re-assessment, or return to the Emergency Department. Return to the Emergency Department for any new or worsening symptoms. You have been prescribed narcotic medications. While on these medications you cannot drive or operate heavy machinery. Additionally you cannot sign legal documents or perform any duties such as this. Many people get constipated on narcotic medications so it would be advisable to discuss stool softeners with the pharmacist when you flower buncher or picker your prescription. Please understand that we cannot provide further refills of narcotics or controlled substances through the ED and your pain management will need to be through your Primary Care Provider ] Prescriptions: New hydrocodone-acetaminophen 5-325 mg tablet 1 tab PO Q4-6H PRN (Reason: pain) Qty: 20 RF: 0 No Action (DME) Disabled Parking Permit Qty: 1 RF: 0 fluticasone propionate 50 mcg/actuation spray,suspension 1 spray NASAL DAILY Qty: 18.2 RF: 3 albuterol sulfate [ProAir HFA] 90 mcg/actuation HFA aerosol inhaler 1 puff INHALATION Q6H PRN (Reason: shortness of breath or wheezing) Qty: 8.5 RF: 2 pioglitazone [Actos] 15 mg tablet 15 mg PO DAILY Qty: 90 RF: 1 losartan 50 mg tablet See Rx Instructions .ROUTE .COMPLEX Qty: 90 RF: 0 Hold Instructions: MEDICATION CHANGE gabapentin 300 mg capsule 600 mg PO BEDTIME Qty: 90 RF: 3 propranolol 40 mg tablet 40 mg PO DAILY Qty: 90 RF: 1 cholecalciferol (vitamin D3) 50 mcg (2,000 unit) capsule 100 mcg PO DAILY RF: 0 acetaminophen 500 mg tablet 500 mg PO Q6H PRNRF: 0 triamterene-hydrochlorothiazid 37.5-25 mg tablet 1 tab PO DAILY Qty: 30 RF: 1 Janumet 50-500 mg tablet 1 tab PO BID Qty: 180 RF: 1 magnesium hydroxide 400 mg (170 mg magnesium) tablet,chewable PO RF: 0 diphenhydramine HCl [Benadryl] 25 mg capsule 25 mg PO BEDTIME PRNRF: 0 mecobalamin (vitamin B12) 1,000 mcg tablet,disintegrating 1,000 mcg SL DAILY RF: 0 norethindrone acetate 5 mg tablet 5 mg PO DAILY RF: 0 Referrals: Kirby Brewer MD [Physician] - Gianluca Caraballo DO [Primary Care Provider] -
[2020-08-08] MEDS: HYDROCODONE/ACET 5/325 PREPACK 1 BOTTLE MISC (18:05)
[2020-08-08] MEDS: HYDROCODONE/ACET 5/325 TABLET 2 TAB PO (18:05)
[2020-08-08 18:24] VITALS: BP 142/78; PULSE 85; RESP 15; O2SAT 99
== END 2020-08-08 18:25 | disposition home or self-care (01) ==
PROVIDERS: Emergency Provider Emergency Medicine; PCP Family Medicine
DX: S62.101A Fracture of unspecified carpal bone, right wrist, initial encounter for closed fracture (principal); S82.832A Other fracture of upper and lower end of left fibula, initial encounter for closed fracture; W00.0XXA Fall on same level due to ice and snow, initial encounter; I10 Essential (primary) hypertension; E11.9 Type 2 diabetes mellitus without complications; J44.9 Chronic obstructive pulmonary disease, unspecified
CPT/HCPCS: 29125; 73110; 73130; 73610; 99281; 99283

== ENCOUNTER → 2020-11-23 07:24 | Outpatient (CLI) | payer OTHER, MEDICAID, SELFPAY ==
[2020-11-23 08:34] LABS: Hemoglobin A1C% w Est Avg Glu 7.5 % (4.0-6.0)
[2020-11-23 08:52] LABS: Alanine Aminotransferase 25 IU/L (<35); Albumin 3.9 g/dL (3.5-5.0); Albumin Globulin Ratio 1.4 (1.0-2.8); Alkaline Phosphatase 56 U/L (38-126); Aspartate Aminotransferase 24 IU/L (14-36); BUN Creatinine Ratio 22.2 (6-22); Bilirubin Total 0.4 mg/dL (0.2-1.3); Blood Urea Nitrogen 18 mg/dL (7-17); Calcium 9.4 mg/dL (8.4-10.2); Carbon Dioxide 28 mmol/L (22-32); Chloride 103 mmol/L (98-107); Estimated Glomerular Filt Rate > 60.0 mL/min (>60); Globulin 2.7 g/dL (1.7-4.1); Glucose 161 mg/dL (70-100); HEMOLYSIS < 15 (0-50); Sodium 139 mmol/L (137-145); Total Protein 6.6 g/dL (6.3-8.2)
[2020-11-23 10:34] LABS: Microalbumin Urine Random 2.6 mg/dL (0-1.6)
[2020-11-23 10:38] LABS: Creatinine Urine Random 55.8 mg/dL; Microalbumi Creatinin Ratio Ur 46.5 ug/mg CR (<30)
== END ==
PROVIDERS: PCP Family Medicine; Referring Provider Family Medicine; Visit Provider Family Medicine
DX: E11.65 Type 2 diabetes mellitus with hyperglycemia (principal)
CPT/HCPCS: 36415; 80053; 82043; 82570; 83036

== ENCOUNTER → 2021-01-05 10:48 | Outpatient (CLI) | payer OTHER, MEDICAID, SELFPAY ==
--- NOTE | 2021-01-05 10:51 | DI.RAD.S_ITS ---
PROCEDURE: XR LUMBAR SPINE MIN 4V INDICATIONS: low back pain TECHNIQUE: 5 views of the lumbar spine were acquired, including bilateral oblique views. COMPARISON: MR, L-SPINE WITHOUT CONTRAST, 07/13/2017, 8:24. [facility], CR, L-SPINE 2-3 VIEWS, 01/31/2008, 10:56. FINDINGS: Bones: 5 nonrib-bearing vertebrae are present. There is normal bony alignment. Multilevel scattered disc space narroiwng is present. Moderate foraminal narrowing at L5-S1. Mild osteophytes. No vertebral body compression fractures. No suspicious bony lesions. Soft tissues: Overlying bowel gas pattern is normal. No suspicious soft tissue calcifications. Oblique images: No pars defects. IMPRESSION: Early degenerative change most notable at L5-S1. Dictated by: Chioma Breen M.D. on 01/05/2021 at 12:47 Approved by: Chioma Breen M.D. on 01/05/2021 at 12:50
== END ==
PROVIDERS: PCP Family Medicine; Referring Provider Family Medicine; Visit Provider Family Medicine
DX: M54.5 Low back pain (principal); M47.817 Spondylosis without myelopathy or radiculopathy, lumbosacral region; G89.29 Other chronic pain
CPT/HCPCS: 72110

== ENCOUNTER → 2021-02-18 07:43 | Outpatient (CLI) | payer OTHER, MEDICAID, SELFPAY ==
[2021-02-18 08:46] LABS: Hemoglobin A1C% w Est Avg Glu 7.7 % (4.0-6.0)
[2021-02-18 09:15] LABS: Alanine Aminotransferase 28 IU/L (<35); Albumin 4.1 g/dL (3.5-5.0); Albumin Globulin Ratio 1.5 (1.0-2.8); Alkaline Phosphatase 50 U/L (38-126); Aspartate Aminotransferase 26 IU/L (14-36); BUN Creatinine Ratio 30.9 (6-22); Bilirubin Total 0.6 mg/dL (0.2-1.3); Blood Urea Nitrogen 21 mg/dL (7-17); Calcium 9.6 mg/dL (8.4-10.2); Carbon Dioxide 30 mmol/L (22-32); Chloride 100 mmol/L (98-107); Estimated Glomerular Filt Rate > 60.0 mL/min (>60); Globulin 2.7 g/dL (1.7-4.1); Glucose 186 mg/dL (70-100); HEMOLYSIS 30 (0-50); Potassium 5.3 mmol/L (3.4-5.1); Sodium 137 mmol/L (137-145); Total Protein 6.8 g/dL (6.3-8.2)
== END ==
PROVIDERS: Family Provider Family Medicine; PCP Family Medicine; Referring Provider Family Medicine; Visit Provider Family Medicine
DX: E11.65 Type 2 diabetes mellitus with hyperglycemia (principal); E66.01 Morbid (severe) obesity due to excess calories; Z68.41 Body mass index [BMI] 40.0-44.9, adult
CPT/HCPCS: 36415; 80053; 83036

== ENCOUNTER 2021-03-22 10:30 | Outpatient (RCR) | payer OTHER, MEDICAID, SELFPAY ==
--- NOTE | 2021-03-01 11:03 | PT.OIE ---
Current Diagnoses Achilles tendinitis, left leg (03/01/21) Past Medical History (Last Updated 11/30/20 @ 12:34 by Gianluca Caraballo DO) Acne Anxiety (~1995) Asthma Chronic back pain (~2013) Chronic cough (~2013) Closed fibular fracture COPD (chronic obstructive pulmonary disease) (~2009) Cystocele Depression (~1995) Diabetes (~2017) Diabetic nephropathy Fibromyalgia (~1995) Foot pain GERD (gastroesophageal reflux disease) (~1999) Headache History of bunionectomy (~1996) History of bunionectomy (~1981) History of reconstructive repair of rectocele (07/22/19) History of shoulder surgery (~2009) History of tubal ligation (~1992) HTN (hypertension) Hyperglycemia Insomnia Leg edema Migraines Diez's neuroma Osteoporosis (~1996) Posterior vaginal wall prolapse (~2013) Rectocele Serotonin syndrome Status post hysteroscopic myomectomy Tooth pain Type 2 diabetes mellitus Type 2 diabetes mellitus with hyperglycemia Umbilical hernia Uterine prolapse Vision disorder Past Surgical History (Last Reviewed 08/08/20 @ 17:24 by William Cason DO) Anesthesia History of bunionectomy (~1996) History of bunionectomy (~1981) History of reconstructive repair of rectocele (07/22/19) History of shoulder surgery (~2009) History of tubal ligation (~1992) Shoulder bursitis (~2010) Status post hysteroscopic myomectomy Visit Care Team Role Provider Type Gianluca Caraballo DO Attending Provider Physician Family Provider Primary Care Provider Referring Provider Specialty: Family Practice Address: [address] [place] [address], [facility] Email: [email or web address] Physical Therapy Initial Evaluation PT-OP-A Visit Information Start: 03/01/21 10:41 Freq: Status: Active Protocol: Document 03/01/21 09:40 OF (Rec: 03/01/21 11:03 OF [email or web address]) Out-Patient Physical Therapy Visit Information Visit Information Visit Type Initial Evaluation Visit Start Time 08:58 Visit Stop Time 09:40 Total Visit Minutes 42 Visit Number 1 Evaluation Information Evaluation Date 03/01/21 Precautions Precautions anxiety, fibromyalgia PT-OP-B Current Condition Start: 03/01/21 10:41 Freq: Status: Active Protocol: Document 03/01/21 09:40 OF (Rec: 03/01/21 11:03 OF [email or web address]) Current Condition History of Current Condition Onset Date Jul 2020 History of Current Condition Pt reports falling 2x on the same day in Jul. She describes inversion injury on L and reports lateral malleolus fx. She has had bilat post heel pain since. Treatment Goals Patient/Caregiver Goals get myself better than this Prior Functional Status Baseline Function- ADL's Independent Baseline Function- Mobility Independent Baseline Function- Other pt is unemployed, she states she is often overwhelmed with daily tasks PT-OP-C Subjective Start: 03/01/21 10:41 Freq: Status: Active Protocol: Document 03/01/21 09:40 OF (Rec: 03/01/21 11:03 OF [email or web address]) OP-PT Subjective Patient Comments Patient Comments Pt states she has had good results from prior therapy for unrelated problems Patient Questionnaires Lower Extremity Functional Scale LEFS Impairment 60 to 79% Impaired (Score 17- 31) OP-PT Pain Assessment Pain Assessment Grid Paper Pain Assessment Grid Completed Yes Location B ankles Pain Location Details post ankle Intensity 4 Scale Used Numeric (0 - 10) Description Aching,Dull,Radiating,Sharp, Shooting Frequency Frequent Pain Aggravating Factors Activity,Exercise,Standing Pain Alleviating Factors Inactivity PT-OP-E Functional Tests Start: 03/01/21 10:41 Freq: Status: Active Protocol: Document 03/01/21 09:40 OF (Rec: 03/01/21 11:03 OF [email or web address]) Functional Tests Timed Up and Go (TUG) TUG Impairment Rating 100% Impaired (Score 20) PT-OP-K Range of Motion Start: 03/01/21 10:41 Freq: Status: Active Protocol: Document 03/01/21 09:40 OF (Rec: 03/01/21 11:03 OF [email or web address]) Ankle and Foot Goniometric Range of Motion Ankle and Foot L Ankle/Foot ROM WFL Yes Testing Position Sitting Dorsiflexion with Knee Flexed 12 Dorsiflexion with Knee Extended 11 Plantarflexion 32 Comments pain with dorsiflexion R Ankle/Foot ROM WFL Yes Testing Position Sitting Dorsiflexion with Knee Flexed 18 Dorsiflexion with Knee Extended 16 Plantarflexion 35 Ankle and Foot ROM Limitations ROM Limitations Soft Tissue Tightness,Muscle Weakness,Pain PT-OP-M Strength Start: 03/01/21 10:41 Freq: Status: Active Protocol: Document 03/01/21 09:40 OF (Rec: 03/01/21 11:03 OF [email or web address]) Ankle/Foot Strength Ankle and Foot Manual Muscle Testing L Dorsiflexion (L4) 3 Fair Inversion 3 Fair R Dorsiflexion (L4) 3 Fair Plantarflexion (S1) 3 Fair PT-OP-Q Treatments Start: 03/01/21 10:41 Freq: Status: Active Protocol: Document 03/01/21 09:40 OF (Rec: 03/01/21 11:03 OF [email or web address]) Therapeutic Exercises Sitting Exercises gastroc stretch Side bilateral Reps/Minutes [id number] soleus stretch Side bilateral Resistance towel or belt Reps/Minutes [id number] Standing Exercises runners stretch Side bilateral Reps/Minutes [id number] Comments cues for extending knee, steady hold Self-Care/Home Management Treatment Education Patient Education Body Mechanics,Home Exercise Program,Pain Management Other Education pt advised to pursue light activity daily, arm exercise, non weightbearing exercise if able. She is agreeable to try shoes at home vs. constantly barefoot. PT-OP-T Assessment and Plan Start: 03/01/21 10:41 Freq: Status: Active Protocol: Document 03/01/21 09:40 OF (Rec: 03/01/21 11:03 [email or web address] Therapy Assessment Rehab Potential Rehabilitation Potential Good Evaluation Complexity Number of Personal Factors/Comorbidities 1-2 Number of Body Systems Impaired 1-2 Clinical Presentation at Evaluation Stable Impairments Impairments Activity Tolerance,Functional Activities,Functional Mobility ,Gait,Pain,ROM,Strength Other Concerns Barriers to Rehabilitation anxiety, fibromyalgia Goals ankle ROM Corrugator Helper Goal (LTG) Pt will improve L ankle dorsiflexion to 15 degrees with knee extended LTG Duration 6 weeks LEFS Impairment pt scores 24/80 on LEFS Fpc Goal (LTG) Pt will improve LEFS score to >50/80 to demonstrate improved LE function Pain with walking Impairment pt has pain which limits her from walking 2 blocks Short Term Goal (STG) pt will tolerate walking > 2blocks with pain <4/10 STG Duration 2 weeks Corrugator Helper Goal (LTG) Pt will walk >1mile with pain <4/10 LTG Duration 6 weeks HEP Impairment Pt has no HEP Short Term Goal (STG) Pt will be I and adherent with HEP for LE strengthening/ stretching/and gentle exercise . STG Duration 2weeks Assessment Summary Assessment Julia is a 56 YO female referred for L heel/ankle pain . She states she is nervous, depressed, and has fibromyalgia multiple times through the assessment. She has had difficulty recently exercises due to shoes not fitting right and rubbing on my rollins. She reports pain in Bilat ankles started after falling on and injuring L ankle. She has had little activity since the pandemic began. She states she is easily overwhelmed and requests 1x/week appts. She has poor LE strength, deconditioning, and poor activity tolerance. She will require skilled therapy to improve activity tolerance, increase ankle ROM, and improve I with AMB to return to walking for exercise. Physical Therapy Plan Frequency and Duration Frequency of Treatment 1x/Week Duration of Treatment 6 weeks Plan of Care Start Date 03/01/21 Plan of Care End Date 04/12/21 Therapeutic Interventions Therapeutic Interventions Home Exercise Program,Joint Mobilizations,Neuromuscular Re -education,Therapeutic Activities,Therapeutic Exercises Next Visit Focus/Plan Next Note Type Treatment Note Next Visit Plan assess HEP performance, use of shoes/sandals at home, initiation of light exercise
--- NOTE | 2021-03-01 11:04 | PT.OPPOC ---
Physical, Occupational & Speech Therapy At [facility] Current Diagnoses Achilles tendinitis, left leg (03/01/21) Visit Care Team Role Provider Type Gianluca Caraballo DO Attending Provider Physician Family Provider Primary Care Provider Referring Provider Specialty: Family Practice Address: [address] [place] [address], [employer] Email: [email or web address] Plan Of Care PT-OP-T Assessment and Plan Start: 03/01/21 10:41 Freq: Status: Active Protocol: Document 03/01/21 09:40 OF (Rec: 03/01/21 11:03 OF [email or web address]) Physical Therapy Assessment Rehab Potential Rehabilitation Potential Good Evaluation Complexity Number of Personal Factors/Comorbidities 1-2 Number of Body Systems Impaired 1-2 Clinical Presentation at Evaluation Stable Impairments Impairments Activity Tolerance,Functional Activities,Functional Mobility ,Gait,Pain,ROM,Strength Other Concerns Barriers to Rehabilitation anxiety, fibromyalgia Goals ankle ROM Machined Parts Metal Sprayer Goal (LTG) Pt will improve L ankle dorsiflexion to 15 degrees with knee extended LTG Duration 6 weeks LEFS Impairment pt scores 24/80 on LEFS Machined Parts Metal Sprayer Goal (LTG) Pt will improve LEFS score to >50/80 to demonstrate improved LE function Pain with walking Impairment pt has pain which limits her from walking 2 blocks Short Term Goal (STG) pt will tolerate walking > 2blocks with pain <4/10 STG Duration 2 weeks Machined Parts Metal Sprayer Goal (LTG) Pt will walk >1mile with pain <4/10 LTG Duration 6 weeks HEP Impairment Pt has no HEP Short Term Goal (STG) Pt will be I and adherent with HEP for LE strengthening/ stretching/and gentle exercise . STG Duration 2weeks Assessment Summary Assessment Julia is a 56 YO female referred for L heel/ankle pain . She states she is nervous, depressed, and has fibromyalgia multiple times through the assessment. She has had difficulty recently exercises due to shoes not fitting right and rubbing on my rollins. She reports pain in Bilat ankles started after falling on and injuring L ankle. She has had little activity since the pandemic began. She states she is easily overwhelmed and requests 1x/week appts. She has poor LE strength, deconditioning, and poor activity tolerance. She will require skilled therapy to improve activity tolerance, increase ankle ROM, and improve I with AMB to return to walking for exercise. Physical Therapy Plan Frequency and Duration Frequency of Treatment 1x/Week Duration of Treatment 6 weeks Plan of Care Start Date 03/01/21 Plan of Care End Date 04/12/21 Therapeutic Interventions Therapeutic Interventions Home Exercise Program,Joint Mobilizations,Neuromuscular Re -education,Therapeutic Activities,Therapeutic Exercises Next Visit Focus/Plan Next Note Type Treatment Note Next Visit Plan assess HEP performance, use of shoes/sandals at home, initiation of light exercise Plan of Care Dates Plan of Care Start Date 03/01/21 Plan of Care End Date 04/12/21 Electronically Signed by: Daniele Rodrigues, PT 03/01/21 1944 Please Sign and Return: I have reviewed this Plan of Care and certify that the skilled therapy services above are required to meet the patient?s needs. Physician Signature Date Printed Name and Credentials Clinical Instructor Signature Printed Name and Credentials
--- NOTE | 2021-03-08 11:05 | PT.OTN ---
Current Diagnoses Achilles tendinitis, left leg (03/08/21) Physical Therapy Treatment Note PT-OP-A Visit Information Start: 03/01/21 10:41 Freq: Status: Active Protocol: Document 03/08/21 11:00 OF (Rec: 03/08/21 11:05 OF [id number]) Out-Patient Physical Therapy Visit Information Visit Information Visit Type Treatment Note Visit Start Time 10:30 Visit Stop Time 10:59 Total Visit Minutes 29 Visit Number 2 Evaluation Information Evaluation Date 03/01/21 Precautions Precautions anxiety, fibromyalgia PT-OP-B Current Condition Start: 03/01/21 10:41 Freq: Status: Active Protocol: Document 03/01/21 09:40 OF (Rec: 03/01/21 11:03 OF [email or web address]) Current Condition History of Current Condition Onset Date Jul 2020 History of Current Condition Pt reports falling 2x on the same day in Jul. She describes inversion injury on L and reports lateral malleolus fx. She has had bilat post heel pain since. Treatment Goals Patient/Caregiver Goals get myself better than this Prior Functional Status Baseline Function- ADL's Independent Baseline Function- Mobility Independent Baseline Function- Other pt is unemployed, she states she is often overwhelmed with daily tasks PT-OP-C Subjective Start: 03/01/21 10:41 Freq: Status: Active Protocol: Document 03/08/21 11:00 OF (Rec: 03/08/21 11:05 OF [id number]) OP-PT Subjective Patient Comments Patient Comments I think I can only do 30min today Patient Reported Progress Same OP-PT Pain Assessment Location B ankles Pain Location Details post/lateral L ankle Intensity 4 Scale Used Numeric (0 - 10) Description Aching,Dull,Radiating,Sharp, Shooting Frequency Frequent Pain Aggravating Factors Activity,Exercise,Standing Pain Alleviating Factors Inactivity PT-OP-E Functional Tests Start: 03/01/21 10:41 Freq: Status: Active Protocol: Document 03/01/21 09:40 OF (Rec: 03/01/21 11:03 OF [email or web address]) Functional Tests Timed Up and Go (TUG) TUG Impairment Rating 100% Impaired (Score 20) PT-OP-K Range of Motion Start: 03/01/21 10:41 Freq: Status: Active Protocol: Document 03/01/21 09:40 OF (Rec: 03/01/21 11:03 OF [email or web address]) Ankle and Foot Goniometric Range of Motion Ankle and Foot L Ankle/Foot ROM WFL Yes Testing Position Sitting Dorsiflexion with Knee Flexed 12 Dorsiflexion with Knee Extended 11 Plantarflexion 32 Comments pain with dorsiflexion R Ankle/Foot ROM WFL Yes Testing Position Sitting Dorsiflexion with Knee Flexed 18 Dorsiflexion with Knee Extended 16 Plantarflexion 35 Ankle and Foot ROM Limitations ROM Limitations Soft Tissue Tightness,Muscle Weakness,Pain PT-OP-M Strength Start: 03/01/21 10:41 Freq: Status: Active Protocol: Document 03/01/21 09:40 OF (Rec: 03/01/21 11:03 OF [email or web address]) Ankle/Foot Strength Ankle and Foot Manual Muscle Testing L Dorsiflexion (L4) 3 Fair Inversion 3 Fair R Dorsiflexion (L4) 3 Fair Plantarflexion (S1) 3 Fair PT-OP-Q Treatments Start: 03/01/21 10:41 Freq: Status: Active Protocol: Document 03/08/21 11:00 OF (Rec: 03/08/21 11:05 OF [id number]) Cardio Equipment Recumbent Stepper (Sci-Fit) Duration (Minutes) 5 Other cues for LE propulsion vs UE Therapeutic Exercises Sitting Exercises gastroc stretch Side bilateral Equipment Used using belt, trialed Janes which pt reports good stretch Reps/Minutes [id number] soleus stretch Side bilateral Resistance towel or belt Reps/Minutes [id number] Standing Exercises runners stretch Side bilateral Reps/Minutes [id number] Comments cues for extending knee, steady hold Gait Training Gait Activity level Level of Assistance SBA Distance/Duration 2x150 Treatment Focus cues for pushoff, proper sequencing of armswing and ankle mobility required Self-Care/Home Management Treatment Education Patient Education Body Mechanics,Home Exercise Program Other Education pt educated upon gradually increasing activity to improve I with ADL, cues for proper footwear at home to provide arch support vs going barefoot PT-OP-T Assessment and Plan Start: 03/01/21 10:41 Freq: Status: Active Protocol: Document 03/08/21 11:00 OF (Rec: 03/08/21 11:05 OF [id number]) Physical Therapy Assessment Rehab Potential Rehabilitation Potential Good Evaluation Complexity Number of Personal Factors/Comorbidities 1-2 Number of Body Systems Impaired 1-2 Clinical Presentation at Evaluation Stable Impairments Impairments Activity Tolerance,Functional Activities,Functional Mobility ,Gait,Pain,ROM,Strength Goals ankle ROM Halfway Goal (LTG) Pt will improve L ankle dorsiflexion to 15 degrees with knee extended LTG Duration 6 weeks LEFS Impairment pt scores 24/80 on LEFS Halfway Goal (LTG) Pt will improve LEFS score to >50/80 to demonstrate improved LE function Pain with walking Impairment pt has pain which limits her from walking 2 blocks Short Term Goal (STG) pt will tolerate walking > 2blocks with pain <4/10 STG Duration 2 weeks Halfway Goal (LTG) Pt will walk >1mile with pain <4/10 LTG Duration 6 weeks HEP Impairment Pt has no HEP Short Term Goal (STG) Pt will be I and adherent with HEP for LE strengthening/ stretching/and gentle exercise . STG Duration 2weeks Progress Towards Goals Progress Towards Goals Progressing Toward Goals Assessment Summary Assessment Julia has difficulty with prolonged activity. She states she is feeling nervous today and would prefer 30min tx. She has good HEP performance, agreeable to progressing HEP next week. Physical Therapy Plan Frequency and Duration Frequency of Treatment 1x/Week Duration of Treatment 6 weeks Plan of Care Start Date 03/01/21 Plan of Care End Date 04/12/21 Therapeutic Interventions Therapeutic Interventions Home Exercise Program,Joint Mobilizations,Neuromuscular Re -education,Therapeutic Activities,Therapeutic Exercises Next Visit Focus/Plan Next Note Type Treatment Note Next Visit Plan progress HEP for heel/toe lifts, gentle balance training with UE support. Encourage activity outside of skilled therapy
--- NOTE | 2021-03-17 12:20 | PT.OTN ---
Current Diagnoses Achilles tendinitis, left leg (03/17/21) Physical Therapy Treatment Note PT-OP-A Visit Information Start: 03/01/21 10:41 Freq: Status: Active Protocol: Document 03/17/21 11:12 AW (Rec: 03/17/21 11:17 AW [id number]) Out-Patient Physical Therapy Visit Information Visit Information Visit Type Treatment Note Visit Start Time 10:30 Visit Stop Time 11:12 Total Visit Minutes 42 Visit Number 3 Number of SOLAR ENERGY SYSTEMS DESIGNER Visits 0 Evaluation Information Evaluation Date 03/01/21 Precautions Precautions anxiety, fibromyalgia PT-OP-B Current Condition Start: 03/01/21 10:41 Freq: Status: Active Protocol: Document 03/01/21 09:40 OF (Rec: 03/01/21 11:03 OF [email or web address]) Current Condition History of Current Condition Onset Date Jul 2020 History of Current Condition Pt reports falling 2x on the same day in Jul. She describes inversion injury on L and reports lateral malleolus fx. She has had bilat post heel pain since. Treatment Goals Patient/Caregiver Goals get myself better than this Prior Functional Status Baseline Function- ADL's Independent Baseline Function- Mobility Independent Baseline Function- Other pt is unemployed, she states she is often overwhelmed with daily tasks PT-OP-C Subjective Start: 03/01/21 10:41 Freq: Status: Active Protocol: Document 03/17/21 11:12 AW (Rec: 03/17/21 11:17 AW [id number]) OP-PT Subjective Patient Comments Patient Comments I've been doing my stretches and have been trying to wear shoes more at home. PT-OP-E Functional Tests Start: 03/01/21 10:41 Freq: Status: Active Protocol: Document 03/01/21 09:40 OF (Rec: 03/01/21 11:03 OF [email or web address]) Functional Tests Timed Up and Go (TUG) TUG Impairment Rating 100% Impaired (Score 20) PT-OP-K Range of Motion Start: 03/01/21 10:41 Freq: Status: Active Protocol: Document 03/01/21 09:40 OF (Rec: 03/01/21 11:03 OF [email or web address]) Ankle and Foot Goniometric Range of Motion Ankle and Foot L Ankle/Foot ROM WFL Yes Testing Position Sitting Dorsiflexion with Knee Flexed 12 Dorsiflexion with Knee Extended 11 Plantarflexion 32 Comments pain with dorsiflexion R Ankle/Foot ROM WFL Yes Testing Position Sitting Dorsiflexion with Knee Flexed 18 Dorsiflexion with Knee Extended 16 Plantarflexion 35 Ankle and Foot ROM Limitations ROM Limitations Soft Tissue Tightness,Muscle Weakness,Pain PT-OP-M Strength Start: 03/01/21 10:41 Freq: Status: Active Protocol: Document 03/01/21 09:40 OF (Rec: 03/01/21 11:03 OF [email or web address]) Ankle/Foot Strength Ankle and Foot Manual Muscle Testing L Dorsiflexion (L4) 3 Fair Inversion 3 Fair R Dorsiflexion (L4) 3 Fair Plantarflexion (S1) 3 Fair PT-OP-Q Treatments Start: 03/01/21 10:41 Freq: Status: Active Protocol: Document 03/17/21 11:12 AW (Rec: 03/17/21 11:17 AW [id number]) Cardio Equipment Recumbent Stepper (Sci-Fit) Duration (Minutes) 6 Resistance 1.0 Seat Position 12 Other pt propels with LE Therapeutic Exercises Sitting Exercises ankle 4-way long sitting Sitting Exercise Name ankle 4 way long sitting; for HEP Side left Resistance level 1 Equipment Used TB Reps/Minutes 2x12 each direction Comments option for long-sitting or sitting edge of chair Standing Exercises gastroc stretch Side bilateral Equipment Used AYAN Reps/Minutes 30 sec x 4 weight shifts Standing Exercise Name pre-gait weight shifts Side bilateral Reps/Minutes 5 min Comments A/P in stride stance; cued for inc heel/toe lift Manual Therapy Treatment Joint Mobilizations talar Joint talar Direction A>P Grade III Body Position Supine Reps/Duration 8 min Comments with active DF for improved ROM PT-OP-T Assessment and Plan Start: 03/01/21 10:41 Freq: Status: Active Protocol: Document 03/17/21 11:12 AW (Rec: 03/17/21 12:20 AW [email or web address]) Physical Therapy Assessment Goals ankle ROM Public Health Administrator Goal (LTG) Pt will improve L ankle dorsiflexion to 15 degrees with knee extended LTG Duration 6 weeks LEFS Impairment pt scores 24/80 on LEFS Public Health Administrator Goal (LTG) Pt will improve LEFS score to >50/80 to demonstrate improved LE function Pain with walking Impairment pt has pain which limits her from walking 2 blocks Short Term Goal (STG) pt will tolerate walking > 2blocks with pain <4/10 STG Duration 2 weeks [facility] Goal (LTG) Pt will walk >1mile with pain <4/10 LTG Duration 6 weeks HEP Impairment Pt has no HEP Short Term Goal (STG) Pt will be I and adherent with HEP for LE strengthening/ stretching/and gentle exercise . STG Duration 2weeks Assessment Summary Assessment Julia responded well to ankle strengthening and pre-gait weight shifting today to increase confidence in weightbearing and ROM. Added both to HEP. Physical Therapy Plan Frequency and Duration Frequency of Treatment 1x/Week Duration of Treatment 6 weeks Plan of Care Start Date 03/01/21 Plan of Care End Date 04/12/21 Therapeutic Interventions Therapeutic Interventions Home Exercise Program,Joint Mobilizations,Neuromuscular Re -education,Therapeutic Activities,Therapeutic Exercises Next Visit Focus/Plan Next Note Type Treatment Note Next Visit Plan progress HEP for heel/toe lifts, gentle balance training with UE support. Encourage activity outside of skilled therapy
--- NOTE | 2021-03-22 11:14 | PT.OTN ---
Current Diagnoses Achilles tendinitis, left leg (03/22/21) Physical Therapy Treatment Note PT-OP-A Visit Information Start: 03/01/21 10:41 Freq: Status: Active Protocol: Document 03/22/21 11:07 OF (Rec: 03/22/21 11:14 OF [id number]) Out-Patient Physical Therapy Visit Information Visit Information Visit Type Discharge Summary Visit Note pt states she is comfortable to continue HEP at home Visit Start Time 10:25 Visit Stop Time 11:00 Total Visit Minutes 35 Visit Number 4 Evaluation Information Evaluation Date 03/01/21 Precautions Precautions anxiety, fibromyalgia PT-OP-B Current Condition Start: 03/01/21 10:41 Freq: Status: Active Protocol: Document 03/01/21 09:40 OF (Rec: 03/01/21 11:03 OF [email or web address]) Current Condition History of Current Condition Onset Date Jul 2020 History of Current Condition Pt reports falling 2x on the same day in Jul. She describes inversion injury on L and reports lateral malleolus fx. She has had bilat post heel pain since. Treatment Goals Patient/Caregiver Goals get myself better than this Prior Functional Status Baseline Function- ADL's Independent Baseline Function- Mobility Independent Baseline Function- Other pt is unemployed, she states she is often overwhelmed with daily tasks PT-OP-C Subjective Start: 03/01/21 10:41 Freq: Status: Active Protocol: Document 03/22/21 11:07 OF (Rec: 03/22/21 11:14 OF [id number]) OP-PT Subjective Patient Comments Patient Comments pt states she has performed HEP, has new shoes with improved arch support, using shoes vs barefoot OP-PT Pain Assessment Pain Assessment Grid Paper Pain Assessment Grid Completed No: pt denies pain PT-OP-E Functional Tests Start: 03/01/21 10:41 Freq: Status: Active Protocol: Document 03/01/21 09:40 OF (Rec: 03/01/21 11:03 OF [email or web address]) Functional Tests Timed Up and Go (TUG) TUG Impairment Rating 100% Impaired (Score 20) PT-OP-K Range of Motion Start: 03/01/21 10:41 Freq: Status: Active Protocol: Document 03/22/21 11:07 OF (Rec: 03/22/21 11:14 OF [id number]) Ankle and Foot Goniometric Range of Motion Ankle and Foot L Ankle/Foot ROM WFL Yes Dorsiflexion with Knee Flexed 15 Dorsiflexion with Knee Extended 15 Plantarflexion 35 R Ankle/Foot ROM WFL Yes Testing Position Sitting Dorsiflexion with Knee Flexed 18 Dorsiflexion with Knee Extended 16 Plantarflexion 35 PT-OP-M Strength Start: 03/01/21 10:41 Freq: Status: Active Protocol: Document 03/01/21 09:40 OF (Rec: 03/01/21 11:03 OF [email or web address]) Ankle/Foot Strength Ankle and Foot Manual Muscle Testing L Dorsiflexion (L4) 3 Fair Inversion 3 Fair R Dorsiflexion (L4) 3 Fair Plantarflexion (S1) 3 Fair PT-OP-Q Treatments Start: 03/01/21 10:41 Freq: Status: Active Protocol: Document 03/22/21 11:07 OF (Rec: 03/22/21 11:14 OF [id number]) Cardio Equipment Recumbent Stepper (Sci-Fit) Duration (Minutes) 8 Resistance 1.0 Seat Position 12 Other pt propels with LE only Therapeutic Exercises Sitting Exercises ankle 4-way long sitting Sitting Exercise Name ankle 4 way long sitting; for HEP Side left Resistance level 1 Equipment Used TB Reps/Minutes 2x15 each direction Comments option for long-sitting or sitting edge of chair, issued loop for doorway gastroc stretch Side bilateral Equipment Used using Janes which pt reports good stretch Reps/Minutes [id number] soleus stretch Side bilateral Resistance towel or belt Reps/Minutes [id number] Standing Exercises weight shifts Standing Exercise Name pre-gait weight shifts Side bilateral Reps/Minutes 5 min Comments A/P in stride stance; cued for inc heel/toe lift Manual Therapy Treatment Joint Mobilizations talar Joint talar Direction A>P Grade III Body Position Supine Reps/Duration 15 min Comments with active DF for improved ROM PT-OP-T Assessment and Plan Start: 03/01/21 10:41 Freq: Status: Active Protocol: Document 03/22/21 11:07 OF (Rec: 03/22/21 11:14 OF [id number]) Physical Therapy Assessment Rehab Potential Rehabilitation Potential Good Evaluation Complexity Number of Personal Factors/Comorbidities 1-2 Number of Body Systems Impaired 1-2 Clinical Presentation at Evaluation Stable Impairments Impairments Activity Tolerance Goals ankle ROM Milk Bottling Machine Operator Goal (LTG) Pt will improve L ankle dorsiflexion to 15 degrees with knee extended Goal met LTG Duration 6 weeks LEFS Impairment pt scores 24/80 on LEFS Milk Bottling Machine Operator Goal (LTG) Pt will improve LEFS score to >50/80 to demonstrate improved LE function Pain with walking Impairment pt has pain which limits her from walking 2 blocks Short Term Goal (STG) pt will tolerate walking > 2blocks with pain <4/ 10 Goal met STG Duration 2 weeks Milk Bottling Machine Operator Goal (LTG) Pt will walk >1mile with pain <4/10 Pt reports she has not attempted LTG Duration 6 weeks HEP Impairment Pt has no HEP Short Term Goal (STG) Pt will be I and adherent with HEP for LE strengthening/ stretching/and gentle exercise . Goal met STG Duration 2weeks Progress Towards Goals Progress Towards Goals Slow Progress - Other Progress Comments Pt requesting DC, states I have a program to do at home, I can do it on my own, I feel good about it Assessment Summary Assessment Julia requests DC today as she has f.u with drug worker tomorrow. She is aware of availability of more visits. She declines. She has an HEP and performs 2-3x/week per her description. She has modified her home footwear and has less pain at home. Physical Therapy Plan Frequency and Duration Frequency of Treatment DC Duration of Treatment 6 weeks Plan of Care Start Date 03/01/21 Plan of Care End Date 03/22/21 Therapeutic Interventions Therapeutic Interventions Gait Training,Home Exercise Program,Manual Therapy, Neuromuscular Re-education, Therapeutic Activities, Therapeutic Exercises Discharge Physical Therapy Discharge Reasons Patient Request Next Visit Focus/Plan Next Note Type Discharge Summary Next Visit Plan dc
== END 2021-03-22 13:18 | disposition home or self-care (01) ==
LOC: PHYS 10:30
PROVIDERS: Family Provider Family Medicine; PCP Family Medicine; Referring Provider Family Medicine; Visit Provider Family Medicine
DX: M76.62 Achilles tendinitis, left leg (principal)
CPT/HCPCS: 97110; 97116; 97140; 97161

== ENCOUNTER → 2021-05-04 11:59 | Outpatient (CLI) | payer OTHER, MEDICAID, SELFPAY ==
[2021-05-04 13:11] LABS: COVID19 -Nasal RAPID Negative (Negative)
== END ==
PROVIDERS: Family Provider Family Medicine; PCP Family Medicine; Visit Provider Physician Assistant
DX: Z20.822 Contact with and (suspected) exposure to COVID-19 (principal)
CPT/HCPCS: 87635

== ENCOUNTER → 2021-05-24 08:06 | Outpatient (CLI) | payer OTHER, MEDICAID, SELFPAY ==
[2021-05-24 08:49] LABS: Add Manual Diff / Slide Review NO; Basophils Absolute Auto 100 /uL (0-100); Basophils Percent Auto 0.7 % (0-2); Eosinophils Absolute Auto 200 /uL (0-450); Eosinophils Percent Auto 1.8 % (2-4); Hematocrit 45.5 % (36-46); Hemoglobin 15.5 g/dL (12.0-16.0); Lymphocytes Absolute Auto 2000 /uL (1100-4500); Lymphocytes Percent Auto 20.7 % (25-40); Mean Corpuscular HGB Conc 34.1 % (30-36); Mean Corpuscular Hemoglobin 31.3 PG (26-34); Mean Corpuscular Volume 91.7 fL (80-100); Monocytes Absolute Auto 600 /uL (0-900); Monocytes Percent Auto 6.6 % (3-14); Neutrophils Absolute Auto 6700 /uL (1500-7000); Neutrophils Percent Auto 70.2 % (50-75); Platelet Count 269 X10^3/uL (150-400); Red Blood Cell Count 4.96 X10^6/uL (4.0-5.2); Red Cell Distribution Width 14.3 % (11.6-14.8); White Blood Cell Count 9.6 X10^3/uL (4.5-11.0)
[2021-05-24 08:57] LABS: Hemoglobin A1C% w Est Avg Glu 8.2 % (4.0-6.0)
[2021-05-24 09:06] LABS: Alanine Aminotransferase 36 IU/L (<35); Albumin 4.2 g/dL (3.5-5.0); Albumin Globulin Ratio 1.7 (1.0-2.8); Alkaline Phosphatase 56 U/L (38-126); Aspartate Aminotransferase 27 IU/L (14-36); BUN Creatinine Ratio 22.9 (6-22); Bilirubin Total 0.8 mg/dL (0.2-1.3); Blood Urea Nitrogen 16 mg/dL (7-17); Calcium 9.3 mg/dL (8.4-10.2); Carbon Dioxide 27 mmol/L (22-32); Chloride 99 mmol/L (98-107); Estimated Glomerular Filt Rate > 60.0 mL/min (>60); Globulin 2.5 g/dL (1.7-4.1); Glucose 189 mg/dL (70-100); HEMOLYSIS < 15 (0-50); Potassium 4.9 mmol/L (3.4-5.1); Sodium 136 mmol/L (137-145); Total Protein 6.7 g/dL (6.3-8.2)
[2021-05-24 09:47] LABS: Creatinine Urine Random 47.1 mg/dL
[2021-05-24 09:51] LABS: Microalbumi Creatinin Ratio Ur 82.8 ug/mg CR (<30); Microalbumin Urine Random 3.9 mg/dL (0-1.6)
== END ==
PROVIDERS: Family Provider Family Medicine; PCP Family Medicine; Referring Provider Family Medicine; Visit Provider Family Medicine
DX: E11.65 Type 2 diabetes mellitus with hyperglycemia (principal); E11.9 Type 2 diabetes mellitus without complications; I10 Essential (primary) hypertension; E66.01 Morbid (severe) obesity due to excess calories; Z68.41 Body mass index [BMI] 40.0-44.9, adult
CPT/HCPCS: 36415; 80053; 82043; 82570; 83036; 85025

== ENCOUNTER → 2021-10-31 08:03 | Outpatient (CLI) | payer OTHER, MEDICAID, SELFPAY ==
[2021-10-31 08:53] LABS: Add Manual Diff / Slide Review NO; Basophils Absolute Auto 0 /uL (0-100); Basophils Percent Auto 0.4 % (0-2); Eosinophils Absolute Auto 200 /uL (0-450); Eosinophils Percent Auto 2.6 % (2-4); Hemoglobin 15.2 g/dL (12.0-16.0); Lymphocytes Absolute Auto 2200 /uL (1100-4500); Lymphocytes Percent Auto 23.2 % (25-40); Mean Corpuscular HGB Conc 33.8 % (30-36); Mean Corpuscular Hemoglobin 30.9 PG (26-34); Mean Corpuscular Volume 91.5 fL (80-100); Monocytes Absolute Auto 700 /uL (0-900); Neutrophils Absolute Auto 6400 /uL (1500-7000); Neutrophils Percent Auto 66.8 % (50-75); Platelet Count 301 X10^3/uL (150-400); Red Blood Cell Count 4.92 X10^6/uL (4.0-5.2); Red Cell Distribution Width 13.6 % (11.6-14.8); White Blood Cell Count 9.5 X10^3/uL (4.5-11.0)
[2021-10-31 08:54] LABS: Hemoglobin A1C% w Est Avg Glu 7.5 % (4.0-6.0)
[2021-10-31 09:10] LABS: Alanine Aminotransferase 49 IU/L (<35); Albumin 4.2 g/dL (3.5-5.0); Albumin Globulin Ratio 1.7 (1.0-2.8); Alkaline Phosphatase 64 U/L (38-126); Aspartate Aminotransferase 29 IU/L (14-36); BUN Creatinine Ratio 24.7 (6-22); Bilirubin Total 0.6 mg/dL (0.2-1.3); Blood Urea Nitrogen 19 mg/dL (7-17); Calcium 9.3 mg/dL (8.4-10.2); Carbon Dioxide 30 mmol/L (22-32); Chloride 101 mmol/L (98-107); Cholesterol 167 mg/dL (140-199); Estimated Glomerular Filt Rate > 60 mL/min (>60); Globulin 2.5 g/dL (1.7-4.1); Glucose 144 mg/dL (70-100); HDL Cholesterol 46 mg/dL (40-60); HEMOLYSIS < 15 (0-50); LDL Cholesterol Calculated 88 mg/dL (<100); Potassium 4.6 mmol/L (3.4-5.1); Sodium 137 mmol/L (137-145); Total Protein 6.7 g/dL (6.3-8.2); Triglycerides 163 mg/dL (35-150)
== END ==
PROVIDERS: Family Provider Family Medicine; PCP Family Medicine; Referring Provider Family Medicine; Visit Provider Family Medicine
DX: E11.21 Type 2 diabetes mellitus with diabetic nephropathy (principal); E11.9 Type 2 diabetes mellitus without complications; I10 Essential (primary) hypertension
CPT/HCPCS: 36415; 80053; 80061; 83036; 85025

== ENCOUNTER → 2022-03-02 09:12 | Outpatient (CLI) | payer OTHER, MEDICAID, SELFPAY ==
[2022-03-02 10:42] LABS: Alanine Aminotransferase 38 IU/L (<35); Albumin 4.3 g/dL (3.5-5.0); Albumin Globulin Ratio 1.6 (1.0-2.8); Alkaline Phosphatase 61 U/L (38-126); Aspartate Aminotransferase 22 IU/L (14-36); BUN Creatinine Ratio 21.4 (6-22); Bilirubin Total 0.6 mg/dL (0.2-1.3); Blood Urea Nitrogen 18 mg/dL (7-17); Calcium 9.5 mg/dL (8.4-10.2); Carbon Dioxide 29 mmol/L (22-32); Chloride 99 mmol/L (98-107); Estimated Glomerular Filt Rate > 60 mL/min (>60); Globulin 2.7 g/dL (1.7-4.1); Glucose 121 mg/dL (70-100); HEMOLYSIS < 15 (0-50); Potassium 4.6 mmol/L (3.4-5.1); Sodium 138 mmol/L (137-145)
[2022-03-02 10:46] LABS: Hemoglobin A1C% w Est Avg Glu 6.4 % (4.0-6.0)
== END ==
PROVIDERS: Family Provider Family Medicine; PCP Family Medicine; Referring Provider Family Medicine; Visit Provider Family Medicine
DX: E11.65 Type 2 diabetes mellitus with hyperglycemia (principal); I10 Essential (primary) hypertension
CPT/HCPCS: 36415; 80053; 83036

== ENCOUNTER 2022-03-28 10:30 | Outpatient (RCR) | payer OTHER, MEDICAID, SELFPAY ==
--- NOTE | 2021-10-10 13:40 | PT.OIE ---
Current Diagnoses Other chronic pain (10/10/21) Pain in unspecified knee (10/10/21) Sciatica, unspecified side (10/10/21) Dorsalgia, unspecified (10/10/21) Fibromyalgia (10/10/21) Past Medical History (Last Updated 08/30/21 @ 14:52 by Gianluca Caraballo DO) Acne Anxiety (~1995) Asthma Chronic back pain (~2013) Chronic cough (~2013) Closed fibular fracture COPD (chronic obstructive pulmonary disease) (~2009) Cystocele Depression (~1995) Diabetes (~2017) Diabetic nephropathy Fibromyalgia (~1995) Foot pain GERD (gastroesophageal reflux disease) (~1999) Headache History of bunionectomy (~1996) History of bunionectomy (~1981) History of reconstructive repair of rectocele (07/22/19) History of shoulder surgery (~2009) History of tubal ligation (~1992) HTN (hypertension) Hyperglycemia Insomnia Leg edema Migraines Diez's neuroma Osteoporosis (~1996) Posterior vaginal wall prolapse (~2013) Rectocele Serotonin syndrome Status post hysteroscopic myomectomy Tooth pain Type 2 diabetes mellitus Type 2 diabetes mellitus with hyperglycemia Umbilical hernia Uterine prolapse Vision disorder Past Surgical History (Last Reviewed 05/04/21 @ 13:20 by Kalli Mayo PA-C) Anesthesia History of bunionectomy (~1996) History of bunionectomy (~1981) History of reconstructive repair of rectocele (07/22/19) History of shoulder surgery (~2009) History of tubal ligation (~1992) Shoulder bursitis (~2010) Status post hysteroscopic myomectomy Visit Care Team Role Provider Type Gianluca Caraballo DO Attending Provider Physician Family Provider Primary Care Provider Referring Provider Specialty: Family Practice Address: [address] [place] [address], [facility] Email: [email or web address] Physical Therapy Initial Evaluation PT-OP-A Visit Information Start: 10/07/21 17:16 Freq: Status: Active Protocol: Document 10/10/21 11:25 LRN (Rec: 10/10/21 12:40 LRN [id number]) Out-Patient Physical Therapy Visit Information Visit Information Visit Type Initial Evaluation Visit Start Time 11:25 Visit Stop Time 12:15 Total Visit Minutes 50 Visit Number 1 Evaluation Information Evaluation Date 10/10/21 Precautions Precautions Prolapse repair on 07/22/19, Imtiaz shoulders 2009 & 2010. Broke R wrist & L ankle 2020, Umbilical hernia 2016, fibromyalgia, chronic pain in knees & feet that is variable in onset and intensity, diabetes, vision problems. PT-OP-B Current Condition Start: 10/07/21 17:16 Freq: Status: Active Protocol: Document 10/10/21 11:25 LRN (Rec: 10/10/21 12:40 LRN [id number]) Current Condition History of Current Condition Onset Date 2 yrs ago Current Complaints Legs feel heavy, variable chronic back, knee, feet pain. History of Current Condition Having trouble walking because feel like she is walking in quicksand, and needs to exercise due to diabetes and is trying to control diabetic numbers by her diet. Chronic pain in low back, knees, feet. Fibromyalgia makes everything else harder. Has Idez Neuroma's and is wearing suiperfeet in shoes that help with pain. She was told she should do the pool program, but she does not want to do that. Prior Treatments and Tests P.T. Apr 2021 for L ankle, achilles heel with some resolution and is doing her home ex's. Treatment Goals Patient/Caregiver Goals Pt goal is to learn low impact exercise, get her diabetes numbers (A1C from 7.9 to 7 or 6.9). Pt agreeble to 1x/2 wk for 7 visits total. Prior Functional Status Baseline Function- ADL's Independent Baseline Function- Mobility Independent Baseline Function- Gait Since 2013, after prolapse, gait feels like she is walking in quicksand. Baseline Function- Work/School Unemployed, on disability Baseline Function- Other Prior to fracture of L ankle was able to walk [place]. Current Functional Impairments (Reported) Functional Limitations- ADL's Walking less than 1/4 mile. Walks around house and to dumpster and exercises UE's in 20' of ex time. Functional Limitations- Mobility/Gait Gait slow, feels like walking in quick sand. Personal Factors Other Personal Factors That May Effect Umbilical hernia, diabetes, Therapy/Recovery fibromyalgia with chronic pain in knees & feet that is variable in onset and intensity, Diez's neuroma's bilaterally, neuropathy of feet. PT-OP-C Subjective Start: 10/07/21 17:16 Freq: Status: Active Protocol: Document 10/10/21 11:25 LRN (Rec: 10/10/21 12:40 LRN [id number]) Patient Questionnaires Lower Extremity Functional Scale LEFS Score 17 LEFS Impairment 60 to 79% Impaired (Score 17- 31) Oswestry Low Back Index Oswestry Score 70 Oswestry Impairment 60 to 79% Impaired (Score 60- 79) OP-PT Pain Assessment Pain Assessment Grid Paper Pain Assessment Grid Completed Yes Location Feet Pain Location Details Ankles Intensity 3 Scale Used Numeric (0 - 10) Knees Pain Location Details L knee, R knee today is 0/10 Intensity 4 Scale Used Numeric (0 - 10) Back/L buttock/SIJ Pain Location Details R low back/buttock/SIJ Intensity 6 Scale Used Numeric (0 - 10) Description Sharp,Shooting PT-OP-E Functional Tests Start: 10/10/21 13:17 Freq: Status: Active Protocol: Document 10/10/21 11:25 LRN (Rec: 10/10/21 13:18 LRN [id number]) Functional Tests 30 Second Sit to Stand Test Score 10 Comments From bariatric chair without use of UE's. PT-OP-H Neuro Start: 10/07/21 17:16 Freq: Status: Active Protocol: Document 10/10/21 11:25 LRN (Rec: 10/10/21 12:40 LRN [id number]) Sensation Evaluation Gross Sensation Gross Sensation WNL Comments Summary Comments Neuropathy in feet due to diabetes and Terrence's neuroma bilaterally. PT-OP-J Posture/Palpation/Skin Start: 10/07/21 17:16 Freq: Status: Active Protocol: Document 10/10/21 11:25 LRN (Rec: 10/10/21 12:40 LRN [id number]) Posture Evaluation Position Standing Head/C-Spine Posture Forward Head T-Spine Posture Flattened L-Spine Posture Increased Lordosis Arm Posture (L) Internally Rotated,(R) Internally Rotated Pelvis Posture Anteriorly Tilted Weight Distribution Balanced Ankle/Foot Posture (L) Calcaneal Inversion,(R) Calcaneal Inversion Comments Posture Comments Dowagers hump, Very wide stance, ankles IV L>R. PT-OP-K Range of Motion Start: 10/07/21 17:16 Freq: Status: Active Protocol: Document 10/10/21 11:25 LRN (Rec: 10/10/21 12:40 LRN [id number]) Lumbar Spine Range of Motion Lumbar Spine Active Percentage Flexion 80 Rotation Left 50 Lateral Flexion Left 50 Lateral Flexion Right 90 ROM Limitations Soft Tissue Tightness,Pain Comments L LB/Sciatic Pain rotating left. Hip Goniometric Range of Motion Hip ROM Limitations Comments Pt LE mobility is WFL for sitting transfers and walking. PT-OP-M Strength Start: 10/07/21 17:16 Freq: Status: Active Protocol: Document 10/10/21 11:25 LRN (Rec: 10/10/21 12:40 LRN [id number]) Trunk Strength Trunk Manual Muscle Testing Extension 2- Poor- Comments Deferred further testing due to pt not able tolerate supine lying. Pt had difficulty breathing in supine and hip pain in sidelie. Hip Strength Hip Manual Muscle Testing Right Flexion (L2) 3- Fair- Comments Deferred further testing due to pt not able to tolerate other testing positions. Left Flexion (L2) 3- Fair- Comments Deferred further testing due to pt not able to tolerate other testing positions. Knee Strength Knee Manual Muscle Testing Right Flexion (S2) 5 Normal Extension (L3) 5 Normal Left Flexion (S2) 5 Normal Extension (L3) 4- Good- Ankle/Foot Strength Ankle and Foot Manual Muscle Testing Right Dorsiflexion (L4) 5 Normal Plantarflexion (S1) 3+ Fair+ Inversion 5 Normal Eversion (S1) 5 Normal Left Dorsiflexion (L4) 5 Normal Plantarflexion (S1) 3+ Fair+ Inversion 3 Fair Eversion (S1) 5 Normal PT-OP-Q Treatments Start: 10/07/21 17:16 Freq: Status: Active Protocol: Document 10/10/21 11:25 LRN (Rec: 10/10/21 12:40 LRN [id number]) Self-Care/Home Management Treatment Education Other Education Discussed results of evaluation, goals, and plan of care (POC). Pt agreeable to goals and POC. PT-OP-T Assessment and Plan Start: 10/07/21 17:16 Freq: Status: Active Protocol: Document 10/10/21 11:25 LRN (Rec: 10/10/21 12:40 LRN [id number]) Physical Therapy Assessment Rehab Potential Rehabilitation Potential Good Evaluation Complexity Number of Personal Factors/Comorbidities 3 or More Number of Body Systems Impaired 4 or More Clinical Presentation at Evaluation Evolving Impairments Impairments Activity Tolerance,Gait,Pain, Posture,Strength,Transfers Goals Four Impairment Decreased function Impairment LEFS score of 17/80 (60-79% impaired), IRMA of 35/50 (60-79% impaired) STG Duration 12/09/21 Mcc Goal (LTG) Improve function per LEFS or IRMA score to 40-59% impaired. LTG Duration 02/07/22 Three Impairment Decreased endurance Impairment 30 sec sit to stand - 10x ( norm for ages 60-64 is 12-17x) Short Term Goal (STG) 30 sec sit<>stand test 12x or greater. STG Duration 12/09/21 Mcc Goal (LTG) Improve endurance per Sit to Stand Test - 17x or greater. LTG Duration 02/07/22 Two Impairment Decreased tolerance to exercise Short Term Goal (STG) Pt will be able to tolerate 10 ' minutes on Behind the Burner exer STG Duration 12/09/21 Coal Chute Worker Goal (LTG) Pt will be able to tolerate 15 ' minutes on Behind the Burner exer LTG Duration 02/07/22 One Impairment Lacks appropriate self care HEP Short Term Goal (STG) Pt will be independent on a walking program minimally 2x/ week. STG Duration 12/09/21 Mcc Goal (LTG) Pt will be on an independent HEP of 1/2 hr workouts. LTG Duration 02/07/22 Assessment Summary Assessment Pt presents with general weakness/endurance and decreased exercise tolerance currently of ~20' max of UE exercises tolerated. She has decreased function per LEFS score of 17/80 (60-79% impaired), and IRMA of 35/50 ( 60-79% impaired). The pt refuses aquatic therapy due to difficulty getting into the program and general anxiety from thought of doing the aquatic program. She is limited in exercise by intermittent onset of back, knee and ankle pain due to fibromyalgia. It is expected progress to be slow due to her comorbidities. The pt will benefit from skilled physical therapy for pt education and progression of her ex program to work towards achieving the above stated goals. Physical Therapy Plan Frequency and Duration Frequency of Treatment 1x/2 weeks Plan of Care Start Date 10/10/21 Plan of Care End Date 02/07/22 Therapeutic Interventions Therapeutic Interventions Balance Training,Gait Training ,Home Exercise Program,Manual Therapy,Patient/Caregiver Education,Self-Care/Home Management,Soft Tissue Mobilization,Therapeutic Activities,Therapeutic Exercises Modalities Cold Pack/Ice Massage,Electric Stimulation,Hot Packs, Ultrasound Next Visit Focus/Plan Next Note Type Treatment Note Next Visit Plan Transfer training to protect back (log roll). Core and LE strengthening in sit, stand or semi-reclined (pt doesn't tolerate supine lying). Endurance ex (start Scifit) and gait, sit<>stand. POC: increase ex tolerance and endurance to assist pt to lower her diabetes numbers, HEP.
--- NOTE | 2021-10-10 13:41 | PT.OPPOC ---
Physical, Occupational & Speech Therapy At [facility] Current Diagnoses Other chronic pain (10/10/21) Pain in unspecified knee (10/10/21) Sciatica, unspecified side (10/10/21) Dorsalgia, unspecified (10/10/21) Fibromyalgia (10/10/21) Visit Care Team Role Provider Type Gianluca Caraballo DO Attending Provider Physician Family Provider Primary Care Provider Referring Provider Specialty: Family Practice Address: [address] [place] [address], [facility] Email: [email or web address] Plan Of Care PT-OP-T Assessment and Plan Start: 10/07/21 17:16 Freq: Status: Active Protocol: Document 10/10/21 11:25 LRN (Rec: 10/10/21 12:40 LRN [id number]) Physical Therapy Assessment Rehab Potential Rehabilitation Potential Good Evaluation Complexity Number of Personal Factors/Comorbidities 3 or More Number of Body Systems Impaired 4 or More Clinical Presentation at Evaluation Evolving Impairments Impairments Activity Tolerance,Gait,Pain, Posture,Strength,Transfers Goals Four Impairment Decreased function Impairment LEFS score of 17/80 (60-79% impaired), IRMA of 35/50 (60-79% impaired) STG Duration 12/09/21 Fdc Goal (LTG) Improve function per LEFS or IRMA score to 40-59% impaired. LTG Duration 02/07/22 Three Impairment Decreased endurance Impairment 30 sec sit to stand - 10x ( norm for ages 60-64 is 12-17x) Short Term Goal (STG) 30 sec sit<>stand test 12x or greater. STG Duration 12/09/21 Gluer And Wedger Goal (LTG) Improve endurance per Sit to Stand Test - 17x or greater. LTG Duration 02/07/22 Two Impairment Decreased tolerance to exercise Short Term Goal (STG) Pt will be able to tolerate 10 ' minutes on Scifit exer STG Duration 12/09/21 Gluer And Wedger Goal (LTG) Pt will be able to tolerate 15 ' minutes on Scifit exer LTG Duration 02/07/22 One Impairment Lacks appropriate self care HEP Short Term Goal (STG) Pt will be independent on a walking program minimally 2x/ week. STG Duration 12/09/21 Gluer And Wedger Goal (LTG) Pt will be on an independent HEP of 1/2 hr workouts. LTG Duration 02/07/22 Assessment Summary Assessment Pt presents with general weakness/endurance and decreased exercise tolerance currently of ~20' max of UE exercises tolerated. She has decreased function per LEFS score of 17/80 (60-79% impaired), and IRMA of 35/50 ( 60-79% impaired). The pt refuses aquatic therapy due to difficulty getting into the program and general anxiety from thought of doing the aquatic program. She is limited in exercise by intermittent onset of back, knee and ankle pain due to fibromyalgia. It is expected progress to be slow due to her comorbidities. The pt will benefit from skilled physical therapy for pt education and progression of her ex program to work towards achieving the above stated goals. Physical Therapy Plan Frequency and Duration Frequency of Treatment 1x/2 weeks Plan of Care Start Date 10/10/21 Plan of Care End Date 02/07/22 Therapeutic Interventions Therapeutic Interventions Balance Training,Gait Training ,Home Exercise Program,Manual Therapy,Patient/Caregiver Education,Self-Care/Home Management,Soft Tissue Mobilization,Therapeutic Activities,Therapeutic Exercises Modalities Cold Pack/Ice Massage,Electric Stimulation,Hot Packs, Ultrasound Next Visit Focus/Plan Next Note Type Treatment Note Next Visit Plan Transfer training to protect back (log roll). Core and LE strengthening in sit, stand or semi-reclined (pt doesn't tolerate supine lying). Endurance ex (start Scifit) and gait, sit<>stand. POC: increase ex tolerance and endurance to assist pt to lower her diabetes numbers, HEP. Plan of Care Dates Plan of Care Start Date 10/10/21 Plan of Care End Date 02/07/22 Electronically Signed by: Juju Holliday, PT 10/10/21 8900 Please Sign and Return: I have reviewed this Plan of Care and certify that the skilled therapy services above are required to meet the patient?s needs. Physician Signature Date Printed Name and Credentials Clinical Instructor Signature Printed Name and Credentials
--- NOTE | 2021-10-25 12:19 | PT.OTN ---
Current Diagnoses Other chronic pain (10/25/21) Pain in unspecified knee (10/25/21) Sciatica, unspecified side (10/25/21) Dorsalgia, unspecified (10/25/21) Fibromyalgia (10/25/21) Physical Therapy Treatment Note PT-OP-A Visit Information Start: 10/07/21 17:16 Freq: Status: Active Protocol: Document 10/25/21 11:22 LRN (Rec: 10/25/21 12:19 LRN [id number]) Out-Patient Physical Therapy Visit Information Visit Information Visit Type Treatment Note Visit Start Time 11: Visit Stop Time 12:02 Total Visit Minutes 40 Visit Number 2 Evaluation Information Evaluation Date 10/10/21 Precautions Precautions Prolapse repair on 07/22/19, Imtiaz shoulders 2009 & 2010. Broke R wrist & L ankle 2020, Umbilical hernia 2016, fibromyalgia, chronic pain in knees & feet that is variable in onset and intensity, diabetes, vision problems. PT-OP-B Current Condition Start: 10/07/21 17:16 Freq: Status: Active Protocol: Document 10/10/21 11:25 LRN (Rec: 10/10/21 12:40 LRN [id number]) Current Condition History of Current Condition Onset Date 2 yrs ago Current Complaints Legs feel heavy, variable chronic back, knee, feet pain. History of Current Condition Having trouble walking because feel like she is walking in quicksand, and needs to exercise due to diabetes and is trying to control diabetic numbers by her diet. Chronic pain in low back, knees, feet. Fibromyalgia makes everything else harder. 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 She was told she should do the pool program, but she does not want to do that. Prior Treatments and Tests P.T. Apr 2021 for L ankle, achilles heel with some resolution and is doing her home ex's. Treatment Goals Patient/Caregiver Goals Pt goal is to learn low impact exercise, get her diabetes numbers (A1C from 7.9 to 7 or 6.9). Pt agreeble to 1x/2 wk for 7 visits total. Prior Functional Status Baseline Function- ADL's Independent Baseline Function- Mobility Independent Baseline Function- Gait Since 2013, after prolapse, gait feels like she is walking in quicksand. Baseline Function- Work/School Unemployed, on disability Baseline Function- Other Prior to fracture of L ankle was able to walk [place]. Current Functional Impairments (Reported) Functional Limitations- ADL's Walking less than 1/4 mile. Walks around house and to dumpster and exercises UE's in 20' of ex time. Functional Limitations- Mobility/Gait Gait slow, feels like walking in quick sand. Personal Factors Other Personal Factors That May Effect Umbilical hernia, diabetes, Therapy/Recovery fibromyalgia with chronic pain in knees & feet that is variable in onset and intensity, Diez's neuroma's bilaterally, neuropathy of feet. PT-OP-C Subjective Start: 10/07/21 17:16 Freq: Status: Active Protocol: Document 10/25/21 11:22 LRN (Rec: 10/25/21 12:19 LRN [id number]) OP-PT Subjective Patient Comments Patient Comments Doesn't want to do aquatic therapy. Has walked a few times and has had a flare up of ms in the L collar bone. With the weather does home aerobics, low impact movements . She states she is very socially conscious and doesn't want to ex at pool. Feet, legs and L hip has a lot of pain. PT-OP-E Functional Tests Start: 10/10/21 13:17 Freq: Status: Active Protocol: Document 10/10/21 11:25 LRN (Rec: 10/10/21 13:18 LRN [id number]) Functional Tests 30 Second Sit to Stand Test Score 10 Comments From bariatric chair without use of UE's. PT-OP-H Neuro Start: 10/07/21 17:16 Freq: Status: Active Protocol: Document 10/10/21 11:25 LRN (Rec: 10/10/21 12:40 LRN [id number]) Sensation Evaluation Gross Sensation Gross Sensation WNL Comments Summary Comments Neuropathy in feet due to diabetes and Terrence's neuroma bilaterally. PT-OP-J Posture/Palpation/Skin Start: 10/07/21 17:16 Freq: Status: Active Protocol: Document 10/10/21 11:25 LRN (Rec: 10/10/21 12:40 LRN [id number]) Posture Evaluation Position Standing Head/C-Spine Posture Forward Head T-Spine Posture Flattened L-Spine Posture Increased Lordosis Arm Posture (L) Internally Rotated,(R) Internally Rotated Pelvis Posture Anteriorly Tilted Weight Distribution Balanced Ankle/Foot Posture (L) Calcaneal Inversion,(R) Calcaneal Inversion Comments Posture Comments Dowagers hump, Very wide stance, ankles IV L>R. PT-OP-K Range of Motion Start: 10/07/21 17:16 Freq: Status: Active Protocol: Document 10/10/21 11:25 LRN (Rec: 10/10/21 12:40 LRN [id number]) Lumbar Spine Range of Motion Lumbar Spine Active Percentage Flexion 80 Rotation Left 50 Lateral Flexion Left 50 Lateral Flexion Right 90 ROM Limitations Soft Tissue Tightness,Pain Comments L LB/Sciatic Pain rotating left. Hip Goniometric Range of Motion Hip ROM Limitations Comments Pt LE mobility is WFL for sitting transfers and walking. PT-OP-M Strength Start: 10/07/21 17:16 Freq: Status: Active Protocol: Document 10/10/21 11:25 LRN (Rec: 10/10/21 12:40 LRN [id number]) Trunk Strength Trunk Manual Muscle Testing Extension 2- Poor- Comments Deferred further testing due to pt not able tolerate supine lying. Pt had difficulty breathing in supine and hip pain in sidelie. Hip Strength Hip Manual Muscle Testing Right Flexion (L2) 3- Fair- Comments Deferred further testing due to pt not able to tolerate other testing positions. Left Flexion (L2) 3- Fair- Comments Deferred further testing due to pt not able to tolerate other testing positions. Knee Strength Knee Manual Muscle Testing Right Flexion (S2) 5 Normal Extension (L3) 5 Normal Left Flexion (S2) 5 Normal Extension (L3) 4- Good- Ankle/Foot Strength Ankle and Foot Manual Muscle Testing Right Dorsiflexion (L4) 5 Normal Plantarflexion (S1) 3+ Fair+ Inversion 5 Normal Eversion (S1) 5 Normal Left Dorsiflexion (L4) 5 Normal Plantarflexion (S1) 3+ Fair+ Inversion 3 Fair Eversion (S1) 5 Normal PT-OP-Q Treatments Start: 10/07/21 17:16 Freq: Status: Active Protocol: Document 10/25/21 11:22 LRN (Rec: 10/25/21 12:19 LRN [id number]) Therapeutic Exercises Supine Exercises TA during breathing Supine Exercise Name 45 deg elevated: TA tightening during breathing Reps/Minutes 3' Comments Much phys and v cuing to keep TA tight and breath through chest Sitting Exercises Piriformis stretch Sitting Exercise Name Piriformis stretch Side left Reps/Minutes 2' Hamstring stretch Sitting Exercise Name Leg extended on plinth (L>R) Side bilateral Reps/Minutes 3' Trunk rot stretch Sitting Exercise Name Trunk rot stretch FB reaching over opposite knee. Side bilateral Reps/Minutes 5' Trunk flex stretch Sitting Exercise Name Forward bend w/elbows on thighs for lumbar stretch Side bilateral Reps/Minutes 4' Sit<>Stand Sitting Exercise Name Sit<>Stand Reps/Minutes 15x Comments V cuing for exhale during standing and sitting. Other Exercises Postural awareness Other Exercise Name Standing against wall w/TA tight/field agronomist pelvic tilt (PPT) Reps/Minutes 3' Comments Much cuing to get a PPT and cuing to keep TA tight. Hip flexor stretch Other Exercise Name Leg behind with Posterior Pelvic Tilt (PPT) Side bilateral Reps/Minutes 1x each Comments More cuing L Iliopsoas for PPT during stretch due to tightness. Walking Other Exercise Name Walking with TA tight Reps/Minutes 3' Comments Much phys & v cuing for pt to keep TA tight during walking Self-Care/Home Management Treatment Education Patient Education Body Mechanics,Home Exercise Program Other Education Educated pt in transfer training sit<>supine, sit<> stand, with much v cuing needed for exhaling on exertion (and PF contraction) and to prevent holding of breath to protect bladder from prolapse and rectal prolapse. Activities Self-Care/Home Management Activities Issued and reviewed HEP: Ilipsoas stretch, writing of home program of TA tightness ( pt code for tuck), sitting lumbar stretch forward bend & rotation, walk program w/TA/ PPT. PT-OP-T Assessment and Plan Start: 10/07/21 17:16 Freq: Status: Active Protocol: Document 10/25/21 11:22 LRN (Rec: 10/25/21 12:19 LRN [id number]) Physical Therapy Assessment Goals Four Impairment Decreased function Impairment LEFS score of 17/80 (60-79% impaired), IRMA of 35/50 (60-79% impaired) STG Duration 12/09/21 Mcfp Goal (LTG) Improve function per LEFS or IRMA score to 40-59% impaired. LTG Duration 02/07/22 Three Impairment Decreased endurance Impairment 30 sec sit to stand - 10x ( norm for ages 60-64 is 12-17x) Short Term Goal (STG) 30 sec sit<>stand test 12x or greater. STG Duration 12/09/21 Mcfp Goal (LTG) Improve endurance per Sit to Stand Test - 17x or greater. LTG Duration 02/07/22 Two Impairment Decreased tolerance to exercise Short Term Goal (STG) Pt will be able to tolerate 10 ' minutes on Scifit exer STG Duration 12/09/21 Mcfp Goal (LTG) Pt will be able to tolerate 15 ' minutes on Scifit exer LTG Duration 02/07/22 One Impairment Lacks appropriate self care HEP Short Term Goal (STG) Pt will be independent on a walking program minimally 2x/ week. (10/25/21: I/S pt to start walking program) STG Duration 12/09/21 (10/25/21: Progressed) Mcfp Goal (LTG) Pt will be on an independent HEP of 1/2 hr workouts. LTG Duration 02/07/22 Assessment Summary Assessment Pt appears to have a good understanding of stand<>sit<> supine, but needed much cuing for breathing to start and less reminders at end of therapy. Pt has better awareness of holding TA and breathing with chest mobility instead of with abdomen after training, but very difficult for pt in semi-reclined. She is able to do in sitting. Pt posture with with excessive lumbar lordosis. Physical Therapy Plan Frequency and Duration Frequency of Treatment 1x/2 weeks Plan of Care Start Date 10/10/21 Plan of Care End Date 02/07/22 Next Visit Focus/Plan Next Note Type Treatment Note Next Visit Plan Endurance ex (start Scifit) and gait, progress sit<>stand. Core and LE strengthening in sit, stand or semi-reclined ( pt doesn't tolerate supine lying). POC: increase ex tolerance and endurance to assist pt to lower her diabetes numbers, HEP.
--- NOTE | 2021-11-07 12:11 | PT.OTN ---
Current Diagnoses Other chronic pain (11/07/21) Pain in unspecified knee (11/07/21) Sciatica, unspecified side (11/07/21) Dorsalgia, unspecified (11/07/21) Fibromyalgia (11/07/21) Physical Therapy Treatment Note PT-OP-A Visit Information Start: 10/07/21 17:16 Freq: Status: Active Protocol: Document 11/07/21 11:21 LRN (Rec: 11/07/21 12:09 LRN [id number]) Out-Patient Physical Therapy Visit Information Visit Information Visit Type Treatment Note Visit Start Time 11:21 Visit Stop Time 12:04 Total Visit Minutes 43 Visit Number 3 Evaluation Information Evaluation Date 10/10/21 Precautions Precautions Prolapse repair on 07/22/19, Imtiaz shoulders 2009 & 2010. Broke R wrist & L ankle 2020, Umbilical hernia 2016, fibromyalgia, chronic pain in knees & feet that is variable in onset and intensity, diabetes, vision problems. PT-OP-B Current Condition Start: 10/07/21 17:16 Freq: Status: Active Protocol: Document 10/10/21 11:25 LRN (Rec: 10/10/21 12:40 LRN [id number]) Current Condition History of Current Condition Onset Date 2 yrs ago Current Complaints Legs feel heavy, variable chronic back, knee, feet pain. History of Current Condition Having trouble walking because feel like she is walking in quicksand, and needs to exercise due to diabetes and is trying to control diabetic numbers by her diet. Chronic pain in low back, knees, feet. Fibromyalgia makes everything else harder. 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 She was told she should do the pool program, but she does not want to do that. Prior Treatments and Tests P.T. Apr 2021 for L ankle, achilles heel with some resolution and is doing her home ex's. Treatment Goals Patient/Caregiver Goals Pt goal is to learn low impact exercise, get her diabetes numbers (A1C from 7.9 to 7 or 6.9). Pt agreeble to 1x/2 wk for 7 visits total. Prior Functional Status Baseline Function- ADL's Independent Baseline Function- Mobility Independent Baseline Function- Gait Since 2013, after prolapse, gait feels like she is walking in quicksand. Baseline Function- Work/School Unemployed, on disability Baseline Function- Other Prior to fracture of L ankle was able to walk 2 [place] of the [employer] trail. Current Functional Impairments (Reported) Functional Limitations- ADL's Walking less than 1/4 mile. Walks around house and to dumpster and exercises UE's in 20' of ex time. Functional Limitations- Mobility/Gait Gait slow, feels like walking in quick sand. Personal Factors Other Personal Factors That May Effect Umbilical hernia, diabetes, Therapy/Recovery fibromyalgia with chronic pain in knees & feet that is variable in onset and intensity, Diez's neuroma's bilaterally, neuropathy of feet. PT-OP-C Subjective Start: 10/07/21 17:16 Freq: Status: Active Protocol: Document 11/07/21 11:21 LRN (Rec: 11/07/21 12:09 LRN [id number]) OP-PT Subjective Patient Comments Patient Comments Pain in the L sciatic/SIJ and bilateral feet (Diez's Neroma bilaterally) limits exercise. Hasn't been able to get injections for the feet due to her diabetes. States she hasn't walked too much. PT-OP-E Functional Tests Start: 10/10/21 13:17 Freq: Status: Active Protocol: Document 10/10/21 11:25 LRN (Rec: 10/10/21 13:18 LRN [id number]) Functional Tests 30 Second Sit to Stand Test Score 10 Comments From bariatric chair without use of UE's. PT-OP-H Neuro Start: 10/07/21 17:16 Freq: Status: Active Protocol: Document 10/10/21 11:25 LRN (Rec: 10/10/21 12:40 LRN [id number]) Sensation Evaluation Gross Sensation Gross Sensation WNL Comments Summary Comments Neuropathy in feet due to diabetes and Terrence's neuroma bilaterally. PT-OP-J Posture/Palpation/Skin Start: 10/07/21 17:16 Freq: Status: Active Protocol: Document 10/10/21 11:25 LRN (Rec: 10/10/21 12:40 LRN [id number]) Posture Evaluation Position Standing Head/C-Spine Posture Forward Head T-Spine Posture Flattened L-Spine Posture Increased Lordosis Arm Posture (L) Internally Rotated,(R) Internally Rotated Pelvis Posture Anteriorly Tilted Weight Distribution Balanced Ankle/Foot Posture (L) Calcaneal Inversion,(R) Calcaneal Inversion Comments Posture Comments Dowagers hump, Very wide stance, ankles IV L>R. PT-OP-K Range of Motion Start: 10/07/21 17:16 Freq: Status: Active Protocol: Document 10/10/21 11:25 LRN (Rec: 10/10/21 12:40 LRN [id number]) Lumbar Spine Range of Motion Lumbar Spine Active Percentage Flexion 80 Rotation Left 50 Lateral Flexion Left 50 Lateral Flexion Right 90 ROM Limitations Soft Tissue Tightness,Pain Comments L LB/Sciatic Pain rotating left. Hip Goniometric Range of Motion Hip ROM Limitations Comments Pt LE mobility is WFL for sitting transfers and walking. PT-OP-M Strength Start: 10/07/21 17:16 Freq: Status: Active Protocol: Document 10/10/21 11:25 LRN (Rec: 10/10/21 12:40 LRN [id number]) Trunk Strength Trunk Manual Muscle Testing Extension 2- Poor- Comments Deferred further testing due to pt not able tolerate supine lying. Pt had difficulty breathing in supine and hip pain in sidelie. Hip Strength Hip Manual Muscle Testing Right Flexion (L2) 3- Fair- Comments Deferred further testing due to pt not able to tolerate other testing positions. Left Flexion (L2) 3- Fair- Comments Deferred further testing due to pt not able to tolerate other testing positions. Knee Strength Knee Manual Muscle Testing Right Flexion (S2) 5 Normal Extension (L3) 5 Normal Left Flexion (S2) 5 Normal Extension (L3) 4- Good- Ankle/Foot Strength Ankle and Foot Manual Muscle Testing Right Dorsiflexion (L4) 5 Normal Plantarflexion (S1) 3+ Fair+ Inversion 5 Normal Eversion (S1) 5 Normal Left Dorsiflexion (L4) 5 Normal Plantarflexion (S1) 3+ Fair+ Inversion 3 Fair Eversion (S1) 5 Normal PT-OP-Q Treatments Start: 10/07/21 17:16 Freq: Status: Active Protocol: Document 11/07/21 11:21 LRN (Rec: 11/07/21 12:09 LRN [id number]) Cardio Equipment Recumbent Stepper (Sci-Fit) Duration (Minutes) 8 Resistance 1 Seat Position 12 Other plus 2' at end of therapy Therapeutic Exercises Sitting Exercises Piriformis stretch Sitting Exercise Name Piriformis stretch, L>R Side left Reps/Minutes 2' left, 1x right Trunk rot stretch Sitting Exercise Name Trunk rot stretch FB reaching over opposite knee. Side bilateral Reps/Minutes 5' Trunk flex stretch Sitting Exercise Name Forward bend w/elbows on thighs for lumbar stretch Side bilateral Reps/Minutes 6x, holding TA/PF through 4 breaths Comments Cuing to keep TA/PF tight Sit<>Stand Sitting Exercise Name Sit<>Stand Reps/Minutes 15x 2 Comments V cuing for exhale during standing and sitting. Other Exercises Walking Other Exercise Name Walking with TA tight Reps/Minutes 3.5' Comments Much phys & v cuing for pt to keep TA tight during walking Self-Care/Home Management Treatment Education Patient Education Home Exercise Program Activities Self-Care/Home Management Activities I/S pt to do walking 2x/day ( AM/PM) and to track for review ). Issued handout for tracking walking program. PT-OP-T Assessment and Plan Start: 10/07/21 17:16 Freq: Status: Active Protocol: Document 11/07/21 11:21 LRN (Rec: 11/07/21 12:09 LRN [id number]) Physical Therapy Assessment Goals Four Impairment Decreased function Impairment LEFS score of 17/80 (60-79% impaired), IRMA of 35/50 (60-79% impaired) STG Duration 12/09/21 Snf Goal (LTG) Improve function per LEFS or IRMA score to 40-59% impaired. LTG Duration 02/07/22 Three Impairment Decreased endurance Impairment 30 sec sit to stand - 10x ( norm for ages 60-64 is 12-17x) Short Term Goal (STG) 30 sec sit<>stand test 12x or greater. (11/07/21: 8x) STG Duration 12/09/21 Table Games Shift Manager Goal (LTG) Improve endurance per Sit to Stand Test - 17x or greater. LTG Duration 02/07/22 Two Impairment Decreased tolerance to exercise Short Term Goal (STG) Pt will be able to tolerate 10 ' minutes on Scifit exer. (11/07/21: Pt tolerated on Sci fit 8' to start and 2' to end ). STG Duration 12/09/21 (11/07/21: Improved) Snf Goal (LTG) Pt will be able to tolerate 15 ' minutes on Scifit exer LTG Duration 02/07/22 One Impairment Lacks appropriate self care HEP Short Term Goal (STG) Pt will be independent on a walking program minimally 2x/ week. (10/25/21: I/S pt to start walking program) STG Duration 12/09/21 (10/25/21: Progressed) Snf Goal (LTG) Pt will be on an independent HEP of 1/2 hr workouts. LTG Duration 02/07/22 Progress Towards Goals Progress Comments Improved tolerance to endurance ex (Scifit 8min). Pt sit<>stand test was 8x at end of therapy compared to 10x at start of Initial Eval. Assessment Summary Assessment Scifit for 8' without complaints and agreet to do 2' at end of therapy. Today we tried to be continuous with ex to build endurace. Pt needed a short rest after walking and after sit<>stand sets. Pt 30 sit to stand test at end of therapy with 8x ( initial was 10x without an ex to begin with); therefore will try the test at start of therapy. Physical Therapy Plan Frequency and Duration Frequency of Treatment 1x/2 weeks Plan of Care Start Date 10/10/21 Plan of Care End Date 02/07/22 Next Visit Focus/Plan Next Note Type Treatment Note Next Visit Plan Start with 30 sit<>stand test . Endurance ex (start Scifit) and gait, progress sit <>stand. Core and LE strengthening in sit, stand or semi-reclined ( pt doesn't tolerate supine lying). POC: increase ex tolerance and endurance to assist pt to lower her diabetes numbers, HEP.
--- NOTE | 2021-11-22 13:08 | PT.OTN ---
Current Diagnoses Other chronic pain (11/22/21) Pain in unspecified knee (11/22/21) Sciatica, unspecified side (11/22/21) Dorsalgia, unspecified (11/22/21) Fibromyalgia (11/22/21) Physical Therapy Treatment Note PT-OP-A Visit Information Start: 10/07/21 17:16 Freq: Status: Active Protocol: Document 11/22/21 12:17 SP (Rec: 11/22/21 13:09 SP [id number]) Out-Patient Physical Therapy Visit Information Visit Information Visit Type Treatment Note Visit Start Time 12:17 Visit Stop Time 13:08 Total Visit Minutes 51 Visit Number 4 Number of CHECK EXAMINER Visits 1 Evaluation Information Evaluation Date 10/10/21 Precautions Precautions Prolapse repair on 07/22/19, Imtiaz shoulders 2009 & 2010. Broke R wrist & L ankle 2020, Umbilical hernia 2016, fibromyalgia, chronic pain in knees & feet that is variable in onset and intensity, diabetes, vision problems. PT-OP-B Current Condition Start: 10/07/21 17:16 Freq: Status: Active Protocol: Document 10/10/21 11:25 LRN (Rec: 10/10/21 12:40 LRN [id number]) Current Condition History of Current Condition Onset Date 2 yrs ago Current Complaints Legs feel heavy, variable chronic back, knee, feet pain. History of Current Condition Having trouble walking because feel like she is walking in quicksand, and needs to exercise due to diabetes and is trying to control diabetic numbers by her diet. Chronic pain in low back, knees, feet. Fibromyalgia makes everything else harder. 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 She was told she should do the pool program, but she does not want to do that. Prior Treatments and Tests P.T. Apr 2021 for L ankle, achilles heel with some resolution and is doing her home ex's. Treatment Goals Patient/Caregiver Goals Pt goal is to learn low impact exercise, get her diabetes numbers (A1C from 7.9 to 7 or 6.9). Pt agreeble to 1x/2 wk for 7 visits total. Prior Functional Status Baseline Function- ADL's Independent Baseline Function- Mobility Independent Baseline Function- Gait Since 2013, after prolapse, gait feels like she is walking in quicksand. Baseline Function- Work/School Unemployed, on disability Baseline Function- Other Prior to fracture of L ankle was able to walk 2 segments of the [employer] trail. Current Functional Impairments (Reported) Functional Limitations- ADL's Walking less than 1/4 mile. Walks around house and to dumpster and exercises UE's in 20' of ex time. Functional Limitations- Mobility/Gait Gait slow, feels like walking in quick sand. Personal Factors Other Personal Factors That May Effect Umbilical hernia, diabetes, Therapy/Recovery fibromyalgia with chronic pain in knees & feet that is variable in onset and intensity, Diez's neuroma's bilaterally, neuropathy of feet. PT-OP-C Subjective Start: 10/07/21 17:16 Freq: Status: Active Protocol: Document 11/22/21 12:17 SP (Rec: 11/22/21 13:09 SP [id number]) OP-PT Subjective Patient Comments Patient Comments Pt reports has been walking but hasn't logged it yet. Has a in the family and busy with family in town. She has to take a self shot Ozempic for her diabetes on Sunday' but notices makes her feel sick for 3 days and hard to be active. Pt states does try incorporate walking in [employer], stretch at sink and EOB when getting up just forgetting to log. PT-OP-E Functional Tests Start: 10/10/21 13:17 Freq: Status: Active Protocol: Document 10/10/21 11:25 LRN (Rec: 10/10/21 13:18 LRN [id number]) Functional Tests 30 Second Sit to Stand Test Score 10 Comments From bariatric chair without use of UE's. PT-OP-H Neuro Start: 10/07/21 17:16 Freq: Status: Active Protocol: Document 10/10/21 11:25 LRN (Rec: 10/10/21 12:40 LRN [id number]) Sensation Evaluation Gross Sensation Gross Sensation WNL Comments Summary Comments Neuropathy in feet due to diabetes and Terrence's neuroma bilaterally. PT-OP-J Posture/Palpation/Skin Start: 10/07/21 17:16 Freq: Status: Active Protocol: Document 10/10/21 11:25 LRN (Rec: 10/10/21 12:40 LRN [id number]) Posture Evaluation Position Standing Head/C-Spine Posture Forward Head T-Spine Posture Flattened L-Spine Posture Increased Lordosis Arm Posture (L) Internally Rotated,(R) Internally Rotated Pelvis Posture Anteriorly Tilted Weight Distribution Balanced Ankle/Foot Posture (L) Calcaneal Inversion,(R) Calcaneal Inversion Comments Posture Comments Dowagers hump, Very wide stance, ankles IV L>R. PT-OP-K Range of Motion Start: 10/07/21 17:16 Freq: Status: Active Protocol: Document 10/10/21 11:25 LRN (Rec: 10/10/21 12:40 LRN [id number]) Lumbar Spine Range of Motion Lumbar Spine Active Percentage Flexion 80 Rotation Left 50 Lateral Flexion Left 50 Lateral Flexion Right 90 ROM Limitations Soft Tissue Tightness,Pain Comments L LB/Sciatic Pain rotating left. Hip Goniometric Range of Motion Hip ROM Limitations Comments Pt LE mobility is WFL for sitting transfers and walking. PT-OP-M Strength Start: 10/07/21 17:16 Freq: Status: Active Protocol: Document 10/10/21 11:25 LRN (Rec: 10/10/21 12:40 LRN [id number]) Trunk Strength Trunk Manual Muscle Testing Extension 2- Poor- Comments Deferred further testing due to pt not able tolerate supine lying. Pt had difficulty breathing in supine and hip pain in sidelie. Hip Strength Hip Manual Muscle Testing Right Flexion (L2) 3- Fair- Comments Deferred further testing due to pt not able to tolerate other testing positions. Left Flexion (L2) 3- Fair- Comments Deferred further testing due to pt not able to tolerate other testing positions. Knee Strength Knee Manual Muscle Testing Right Flexion (S2) 5 Normal Extension (L3) 5 Normal Left Flexion (S2) 5 Normal Extension (L3) 4- Good- Ankle/Foot Strength Ankle and Foot Manual Muscle Testing Right Dorsiflexion (L4) 5 Normal Plantarflexion (S1) 3+ Fair+ Inversion 5 Normal Eversion (S1) 5 Normal Left Dorsiflexion (L4) 5 Normal Plantarflexion (S1) 3+ Fair+ Inversion 3 Fair Eversion (S1) 5 Normal PT-OP-Q Treatments Start: 10/07/21 17:16 Freq: Status: Active Protocol: Document 11/22/21 12:17 SP (Rec: 11/22/21 13:09 SP [id number]) Cardio Equipment Recumbent Stepper (Sci-Fit) Duration (Minutes) 8 Resistance 2 Seat Position 11 Other 0.89 miles UE& LEs Therapeutic Exercises Supine Exercises TA during breathing Supine Exercise Name Seated: TA tightening during breathing Equipment Used improved form. Reps/Minutes 2 min Comments Min v cuing to keep TA tight & breath through chest- hand lower ab self fb Sitting Exercises Piriformis stretch Sitting Exercise Name Piriformis stretch, L>R Side bilateral Equipment Used black plinth Reps/Minutes 30 x2 Comments modified Piriformis stretch Hamstring stretch Sitting Exercise Name Leg extended on plinth (L>R) vs hip hinge forward Side bilateral Resistance AROM Equipment Used black plinth- hip hinge Reps/Minutes 30 x3 Comments modified HS hip hinge- cued not hip ER Trunk rot stretch Sitting Exercise Name Trunk rot/SB stretch FB reaching over opposite knee. Side bilateral Equipment Used Tball sitting and sink stretch standing Reps/Minutes 30 x3 Trunk flex stretch Sitting Exercise Name Forward bend arms straight hands on Tball Side bilateral Equipment Used 18 black table, Green 65cm Tball Reps/Minutes 6x, holding TA/PF through 4 breaths Comments Good keep TA/PF tight, cued no round back more hip hinge Sit<>Stand Sitting Exercise Name Sit<>Stand- crossed arms over chest Equipment Used 18 black table height (states same height chair at home) Reps/Minutes 15x 2- not timed Comments good TA fac w/ demo exhale during standing and sitting. Standing Exercises LS sink stretch Standing Exercise Name alternative LS stretch during dishe- already doing self Side bilateral Equipment Used grasp sink (forward and lateral pelvis tilt for QL stretch) Reps/Minutes 3 x30 Comments good form and response to stretch low back Other Exercises Hip flexor stretch Other Exercise Name Leg behind with Posterior Pelvic Tilt (PPT) Side bilateral Reps/Minutes 1x each Comments More cuing L Iliopsoas for PPT during stretch due to tightness. Walking Other Exercise Name Walking with TA tight- discussed but not enough time perform- review again Self-Care/Home Management Treatment Education Patient Education Home Exercise Program Other Education Time spent encouragement for logging activity, is performing with ADLs just not logging it. Encouraged to put on phone not pad if out away from log sheet and place log sheet in area often pass ( kitchen cupboard, sink, frig) and log activity doing don't always have to set aside time for doing. Pt reporte felt empowered by this strategy. PT-OP-T Assessment and Plan Start: 10/07/21 17:16 Freq: Status: Active Protocol: Document 11/22/21 12:17 SP (Rec: 11/22/21 13:09 SP [id number]) Physical Therapy Assessment Goals Four Impairment Decreased function Impairment LEFS score of 17/80 (60-79% impaired), IRMA of 35/50 (60-79% impaired) STG Duration 12/09/21 Corporate Development Analyst Goal (LTG) Improve function per LEFS or IRMA score to 40-59% impaired. LTG Duration 02/07/22 Three Impairment Decreased endurance Impairment 30 sec sit to stand - 10x ( norm for ages 60-64 is 12-17x) Short Term Goal (STG) 30 sec sit<>stand test 12x or greater. (11/07/21: 8x) STG Duration 12/09/21 Correction Goal (LTG) Improve endurance per Sit to Stand Test - 17x or greater. LTG Duration 02/07/22 Two Impairment Decreased tolerance to exercise Short Term Goal (STG) Pt will be able to tolerate 10 ' minutes on Scifit exer. (11/07/21: Pt tolerated on Sci fit 8' to start and 2' to end ). STG Duration 12/09/21 (11/07/21: Improved) Correction Goal (LTG) Pt will be able to tolerate 15 ' minutes on Scifit exer LTG Duration 02/07/22 One Impairment Lacks appropriate self care HEP Short Term Goal (STG) Pt will be independent on a walking program minimally 2x/ week. (10/25/21: I/S pt to start walking program) STG Duration 12/09/21 (10/25/21: Progressed) Corporate Development Analyst Goal (LTG) Pt will be on an independent HEP of 1/2 hr workouts. LTG Duration 02/07/22 Assessment Summary Assessment Pt improved with TA facilitation and for of HEP, realized already doing ther ex and just didn't log it with family happening since last tx . CHECK EXAMINER provided ed for log location for self recall so self encouragement in activity . Pt able complete STS x15 reps without seated rest. Physical Therapy Plan Frequency and Duration Frequency of Treatment 1x/2 weeks Plan of Care Start Date 10/10/21 Plan of Care End Date 08/16/22 Therapeutic Interventions Therapeutic Interventions Balance Training,Gait Training ,Home Exercise Program,Manual Therapy,Patient/Caregiver Education,Self-Care/Home Management,Soft Tissue Mobilization,Therapeutic Activities,Therapeutic Exercises Modalities Cold Pack/Ice Massage,Electric Stimulation,Hot Packs, Ultrasound Next Visit Focus/Plan Next Note Type Treatment Note Next Visit Plan Start with 30 sit<>stand test . Endurance ex (start Scifit) and gait, progress sit <>stand. Core and LE strengthening in sit, stand or semi-reclined ( pt doesn't tolerate supine lying). POC: increase ex tolerance and endurance to assist pt to lower her diabetes numbers, HEP.
--- NOTE | 2021-11-22 13:08 | PT.OTN ---
Current Diagnoses Other chronic pain (11/22/21) Pain in unspecified knee (11/22/21) Sciatica, unspecified side (11/22/21) Dorsalgia, unspecified (11/22/21) Fibromyalgia (11/22/21) Physical Therapy Treatment Note PT-OP-A Visit Information Start: 10/07/21 17:16 Freq: Status: Active Protocol: Document 11/22/21 12:17 SP (Rec: 11/22/21 13:09 SP [id number]) Out-Patient Physical Therapy Visit Information Visit Information Visit Type Treatment Note Visit Start Time 12:17 Visit Stop Time 13:08 Total Visit Minutes 51 Visit Number 4 Number of CHILD DEVELOPMENT DIRECTOR Visits 1 Evaluation Information Evaluation Date 10/10/21 Precautions Precautions Prolapse repair on 07/22/19, Imtiaz shoulders 2009 & 2010. Broke R wrist & L ankle 2020, Umbilical hernia 2016, fibromyalgia, chronic pain in knees & feet that is variable in onset and intensity, diabetes, vision problems. PT-OP-B Current Condition Start: 10/07/21 17:16 Freq: Status: Active Protocol: Document 10/10/21 11:25 LRN (Rec: 10/10/21 12:40 LRN [id number]) Current Condition History of Current Condition Onset Date 2 yrs ago Current Complaints Legs feel heavy, variable chronic back, knee, feet pain. History of Current Condition Having trouble walking because feel like she is walking in quicksand, and needs to exercise due to diabetes and is trying to control diabetic numbers by her diet. Chronic pain in low back, knees, feet. Fibromyalgia makes everything else harder. 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 She was told she should do the pool program, but she does not want to do that. Prior Treatments and Tests P.T. Apr 2021 for L ankle, achilles heel with some resolution and is doing her home ex's. Treatment Goals Patient/Caregiver Goals Pt goal is to learn low impact exercise, get her diabetes numbers (A1C from 7.9 to 7 or 6.9). Pt agreeble to 1x/2 wk for 7 visits total. Prior Functional Status Baseline Function- ADL's Independent Baseline Function- Mobility Independent Baseline Function- Gait Since 2013, after prolapse, gait feels like she is walking in quicksand. Baseline Function- Work/School Unemployed, on disability Baseline Function- Other Prior to fracture of L ankle was able to walk 2 segments of the [employer] trail. Current Functional Impairments (Reported) Functional Limitations- ADL's Walking less than 1/4 mile. Walks around house and to dumpster and exercises UE's in 20' of ex time. Functional Limitations- Mobility/Gait Gait slow, feels like walking in quick sand. Personal Factors Other Personal Factors That May Effect Umbilical hernia, diabetes, Therapy/Recovery fibromyalgia with chronic pain in knees & feet that is variable in onset and intensity, Diez's neuroma's bilaterally, neuropathy of feet. PT-OP-C Subjective Start: 10/07/21 17:16 Freq: Status: Active Protocol: Document 11/22/21 12:17 SP (Rec: 11/22/21 13:09 SP [id number]) OP-PT Subjective Patient Comments Patient Comments Pt reports has been walking but hasn't logged it yet. Has a in the family and busy with family in town. She has to take a self shot Ozempic for her diabetes on Sunday' but notices makes her feel sick for 3 days and hard to be active. Pt states does try incorporate walking in [employer], stretch at sink and EOB when getting up just forgetting to log. PT-OP-E Functional Tests Start: 10/10/21 13:17 Freq: Status: Active Protocol: Document 10/10/21 11:25 LRN (Rec: 10/10/21 13:18 LRN [id number]) Functional Tests 30 Second Sit to Stand Test Score 10 Comments From bariatric chair without use of UE's. PT-OP-H Neuro Start: 10/07/21 17:16 Freq: Status: Active Protocol: Document 10/10/21 11:25 LRN (Rec: 10/10/21 12:40 LRN [id number]) Sensation Evaluation Gross Sensation Gross Sensation WNL Comments Summary Comments Neuropathy in feet due to diabetes and Terrence's neuroma bilaterally. PT-OP-J Posture/Palpation/Skin Start: 10/07/21 17:16 Freq: Status: Active Protocol: Document 10/10/21 11:25 LRN (Rec: 10/10/21 12:40 LRN [id number]) Posture Evaluation Position Standing Head/C-Spine Posture Forward Head T-Spine Posture Flattened L-Spine Posture Increased Lordosis Arm Posture (L) Internally Rotated,(R) Internally Rotated Pelvis Posture Anteriorly Tilted Weight Distribution Balanced Ankle/Foot Posture (L) Calcaneal Inversion,(R) Calcaneal Inversion Comments Posture Comments Dowagers hump, Very wide stance, ankles IV L>R. PT-OP-K Range of Motion Start: 10/07/21 17:16 Freq: Status: Active Protocol: Document 10/10/21 11:25 LRN (Rec: 10/10/21 12:40 LRN [id number]) Lumbar Spine Range of Motion Lumbar Spine Active Percentage Flexion 80 Rotation Left 50 Lateral Flexion Left 50 Lateral Flexion Right 90 ROM Limitations Soft Tissue Tightness,Pain Comments L LB/Sciatic Pain rotating left. Hip Goniometric Range of Motion Hip ROM Limitations Comments Pt LE mobility is WFL for sitting transfers and walking. PT-OP-M Strength Start: 10/07/21 17:16 Freq: Status: Active Protocol: Document 10/10/21 11:25 LRN (Rec: 10/10/21 12:40 LRN [id number]) Trunk Strength Trunk Manual Muscle Testing Extension 2- Poor- Comments Deferred further testing due to pt not able tolerate supine lying. Pt had difficulty breathing in supine and hip pain in sidelie. Hip Strength Hip Manual Muscle Testing Right Flexion (L2) 3- Fair- Comments Deferred further testing due to pt not able to tolerate other testing positions. Left Flexion (L2) 3- Fair- Comments Deferred further testing due to pt not able to tolerate other testing positions. Knee Strength Knee Manual Muscle Testing Right Flexion (S2) 5 Normal Extension (L3) 5 Normal Left Flexion (S2) 5 Normal Extension (L3) 4- Good- Ankle/Foot Strength Ankle and Foot Manual Muscle Testing Right Dorsiflexion (L4) 5 Normal Plantarflexion (S1) 3+ Fair+ Inversion 5 Normal Eversion (S1) 5 Normal Left Dorsiflexion (L4) 5 Normal Plantarflexion (S1) 3+ Fair+ Inversion 3 Fair Eversion (S1) 5 Normal PT-OP-Q Treatments Start: 10/07/21 17:16 Freq: Status: Active Protocol: Document 11/22/21 12:17 SP (Rec: 11/22/21 13:09 SP [id number]) Cardio Equipment Recumbent Stepper (Sci-Fit) Duration (Minutes) 8 Resistance 2 Seat Position 11 Other 0.89 miles UE& LEs Therapeutic Exercises Supine Exercises TA during breathing Supine Exercise Name Seated: TA tightening during breathing Equipment Used improved form. Reps/Minutes 2 min Comments Min v cuing to keep TA tight & breath through chest- hand lower ab self fb Sitting Exercises Piriformis stretch Sitting Exercise Name Piriformis stretch, L>R Side bilateral Equipment Used black plinth Reps/Minutes 30 x2 Comments modified Piriformis stretch Hamstring stretch Sitting Exercise Name Leg extended on plinth (L>R) vs hip hinge forward Side bilateral Resistance AROM Equipment Used black plinth- hip hinge Reps/Minutes 30 x3 Comments modified HS hip hinge- cued not hip ER Trunk rot stretch Sitting Exercise Name Trunk rot/SB stretch FB reaching over opposite knee. Side bilateral Equipment Used Tball sitting and sink stretch standing Reps/Minutes 30 x3 Trunk flex stretch Sitting Exercise Name Forward bend arms straight hands on Tball Side bilateral Equipment Used 18 black table, Green 65cm Tball Reps/Minutes 6x, holding TA/PF through 4 breaths Comments Good keep TA/PF tight, cued no round back more hip hinge Sit<>Stand Sitting Exercise Name Sit<>Stand- crossed arms over chest Equipment Used 18 black table height (states same height chair at home) Reps/Minutes 15x 2- not timed Comments good TA fac w/ demo exhale during standing and sitting. Standing Exercises LS sink stretch Standing Exercise Name alternative LS stretch during dishe- already doing self Side bilateral Equipment Used grasp sink (forward and lateral pelvis tilt for QL stretch) Reps/Minutes 3 x30 Comments good form and response to stretch low back Other Exercises Hip flexor stretch Other Exercise Name Leg behind with Posterior Pelvic Tilt (PPT) Side bilateral Reps/Minutes 1x each Comments More cuing L Iliopsoas for PPT during stretch due to tightness. Walking Other Exercise Name Walking with TA tight- discussed but not enough time perform- review again Self-Care/Home Management Treatment Education Patient Education Home Exercise Program Other Education Time spent encouragement for logging activity, is performing with ADLs just not logging it. Encouraged to put on phone not pad if out away from log sheet and place log sheet in area often pass ( kitchen cupboard, sink, frig) and log activity doing don't always have to set aside time for doing. Pt reporte felt empowered by this strategy. PT-OP-T Assessment and Plan Start: 10/07/21 17:16 Freq: Status: Active Protocol: Document 11/22/21 12:17 SP (Rec: 11/22/21 13:09 SP [id number]) Physical Therapy Assessment Goals Four Impairment Decreased function Impairment LEFS score of 17/80 (60-79% impaired), IRMA of 35/50 (60-79% impaired) STG Duration 12/09/21 Dustless Operator Goal (LTG) Improve function per LEFS or IRMA score to 40-59% impaired. LTG Duration 02/07/22 Three Impairment Decreased endurance Impairment 30 sec sit to stand - 10x ( norm for ages 60-64 is 12-17x) Short Term Goal (STG) 30 sec sit<>stand test 12x or greater. (11/07/21: 8x) STG Duration 12/09/21 Skilled Nursing Goal (LTG) Improve endurance per Sit to Stand Test - 17x or greater. LTG Duration 02/07/22 Two Impairment Decreased tolerance to exercise Short Term Goal (STG) Pt will be able to tolerate 10 ' minutes on Scifit exer. (11/07/21: Pt tolerated on Sci fit 8' to start and 2' to end ). STG Duration 12/09/21 (11/07/21: Improved) Skilled Nursing Goal (LTG) Pt will be able to tolerate 15 ' minutes on Scifit exer LTG Duration 02/07/22 One Impairment Lacks appropriate self care HEP Short Term Goal (STG) Pt will be independent on a walking program minimally 2x/ week. (10/25/21: I/S pt to start walking program) STG Duration 12/09/21 (10/25/21: Progressed) Dustless Operator Goal (LTG) Pt will be on an independent HEP of 1/2 hr workouts. LTG Duration 02/07/22 Assessment Summary Assessment Pt improved with TA facilitation self verbal/ performance corrections with HEP review even though stated hadn't set aside time to perform or log, realized already doing ther ex with ADLs and just didn't log it with family happening since last tx. CHILD DEVELOPMENT DIRECTOR provided ed for log location for self recall/ fill out so self encouragement in activity carry through. Pt able complete STS x15 reps without seated break. Physical Therapy Plan Frequency and Duration Frequency of Treatment 1x/2 weeks Plan of Care Start Date 10/10/21 Plan of Care End Date 02/07/22 Therapeutic Interventions Therapeutic Interventions Balance Training,Gait Training ,Home Exercise Program,Manual Therapy,Patient/Caregiver Education,Self-Care/Home Management,Soft Tissue Mobilization,Therapeutic Activities,Therapeutic Exercises Modalities Cold Pack/Ice Massage,Electric Stimulation,Hot Packs, Ultrasound Next Visit Focus/Plan Next Note Type Treatment Note Next Visit Plan Recheck log: Ask if new hand outs for visual stretching. NExt tx: Start Scifit 10min, then 30 sit<>stand test and gait. POC: Core and LE strengthening in sit, stand or semi- reclined (pt doesn't tolerate supine lying). Increase ex tolerance and endurance to assist pt to lower her diabetes numbers, HEP.
--- NOTE | 2021-12-19 12:11 | PT.OTN ---
Current Diagnoses Other chronic pain (12/19/21) Pain in unspecified knee (12/19/21) Sciatica, unspecified side (12/19/21) Dorsalgia, unspecified (12/19/21) Fibromyalgia (12/19/21) Physical Therapy Treatment Note PT-OP-A Visit Information Start: 10/07/21 17:16 Freq: Status: Active Protocol: Document 12/19/21 11:23 LRN (Rec: 12/19/21 12:10 LRN [id number]) Out-Patient Physical Therapy Visit Information Visit Information Visit Type Treatment Note Visit Note 10/31 Visit Start Time 11:23 Visit Stop Time 12:06 Total Visit Minutes 43 Visit Number 5 Evaluation Information Evaluation Date 10/10/21 Precautions Precautions Prolapse repair on 07/22/19, Imtiaz shoulders 2009 & 2010. Broke R wrist & L ankle 2020, Umbilical hernia 2016, fibromyalgia, chronic pain in knees & feet that is variable in onset and intensity, diabetes, vision problems. PT-OP-B Current Condition Start: 10/07/21 17:16 Freq: Status: Active Protocol: Document 10/10/21 11:25 LRN (Rec: 10/10/21 12:40 LRN [id number]) Current Condition History of Current Condition Onset Date 2 yrs ago Current Complaints Legs feel heavy, variable chronic back, knee, feet pain. History of Current Condition Having trouble walking because feel like she is walking in quicksand, and needs to exercise due to diabetes and is trying to control diabetic numbers by her diet. Chronic pain in low back, knees, feet. Fibromyalgia makes everything else harder. 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 She was told she should do the pool program, but she does not want to do that. Prior Treatments and Tests P.T. Apr 2021 for L ankle, achilles heel with some resolution and is doing her home ex's. Treatment Goals Patient/Caregiver Goals Pt goal is to learn low impact exercise, get her diabetes numbers (A1C from 7.9 to 7 or 6.9). Pt agreeble to 1x/2 wk for 7 visits total. Prior Functional Status Baseline Function- ADL's Independent Baseline Function- Mobility Independent Baseline Function- Gait Since 2013, after prolapse, gait feels like she is walking in quicksand. Baseline Function- Work/School Unemployed, on disability Baseline Function- Other Prior to fracture of L ankle was able to walk 2 [place] trail. Current Functional Impairments (Reported) Functional Limitations- ADL's Walking less than 1/4 mile. Walks around house and to dumpster and exercises UE's in 20' of ex time. Functional Limitations- Mobility/Gait Gait slow, feels like walking in quick sand. Personal Factors Other Personal Factors That May Effect Umbilical hernia, diabetes, Therapy/Recovery fibromyalgia with chronic pain in knees & feet that is variable in onset and intensity, Diez's neuroma's bilaterally, neuropathy of feet. PT-OP-C Subjective Start: 10/07/21 17:16 Freq: Status: Active Protocol: Document 12/19/21 11:23 LRN (Rec: 12/19/21 12:10 LRN [id number]) OP-PT Subjective Patient Comments Patient Comments Wearing personal fan to cool neck. New drug last Feb for fibromyalgia, caused feet to be sore and stopped taking it a week ago and the feet got worse, but it now starting to get better. Walked with mother in grocery for ~1 hr and had to be off feet the next day. Is doing stretches when feeling sick and tries to stretch on those days, ~20 min. Able to walk in [employer] using the cart. Wanting to make appt with foot doctor to get diabetic shoes. PT-OP-E Functional Tests Start: 10/10/21 13:17 Freq: Status: Active Protocol: Document 12/19/21 11:23 LRN (Rec: 12/19/21 12:10 LRN [id number]) Functional Tests 30 Second Sit to Stand Test Score 7 PT-OP-H Neuro Start: 10/07/21 17:16 Freq: Status: Active Protocol: Document 10/10/21 11:25 LRN (Rec: 10/10/21 12:40 LRN [id number]) Sensation Evaluation Gross Sensation Gross Sensation WNL Comments Summary Comments Neuropathy in feet due to diabetes and Terrence's neuroma bilaterally. PT-OP-J Posture/Palpation/Skin Start: 10/07/21 17:16 Freq: Status: Active Protocol: Document 10/10/21 11:25 LRN (Rec: 10/10/21 12:40 LRN [id number]) Posture Evaluation Position Standing Head/C-Spine Posture Forward Head T-Spine Posture Flattened L-Spine Posture Increased Lordosis Arm Posture (L) Internally Rotated,(R) Internally Rotated Pelvis Posture Anteriorly Tilted Weight Distribution Balanced Ankle/Foot Posture (L) Calcaneal Inversion,(R) Calcaneal Inversion Comments Posture Comments Dowagers hump, Very wide stance, ankles IV L>R. PT-OP-K Range of Motion Start: 10/07/21 17:16 Freq: Status: Active Protocol: Document 10/10/21 11:25 LRN (Rec: 10/10/21 12:40 LRN [id number]) Lumbar Spine Range of Motion Lumbar Spine Active Percentage Flexion 80 Rotation Left 50 Lateral Flexion Left 50 Lateral Flexion Right 90 ROM Limitations Soft Tissue Tightness,Pain Comments L LB/Sciatic Pain rotating left. Hip Goniometric Range of Motion Hip ROM Limitations Comments Pt LE mobility is WFL for sitting transfers and walking. PT-OP-M Strength Start: 10/07/21 17:16 Freq: Status: Active Protocol: Document 10/10/21 11:25 LRN (Rec: 10/10/21 12:40 LRN [id number]) Trunk Strength Trunk Manual Muscle Testing Extension 2- Poor- Comments Deferred further testing due to pt not able tolerate supine lying. Pt had difficulty breathing in supine and hip pain in sidelie. Hip Strength Hip Manual Muscle Testing Right Flexion (L2) 3- Fair- Comments Deferred further testing due to pt not able to tolerate other testing positions. Left Flexion (L2) 3- Fair- Comments Deferred further testing due to pt not able to tolerate other testing positions. Knee Strength Knee Manual Muscle Testing Right Flexion (S2) 5 Normal Extension (L3) 5 Normal Left Flexion (S2) 5 Normal Extension (L3) 4- Good- Ankle/Foot Strength Ankle and Foot Manual Muscle Testing Right Dorsiflexion (L4) 5 Normal Plantarflexion (S1) 3+ Fair+ Inversion 5 Normal Eversion (S1) 5 Normal Left Dorsiflexion (L4) 5 Normal Plantarflexion (S1) 3+ Fair+ Inversion 3 Fair Eversion (S1) 5 Normal PT-OP-Q Treatments Start: 10/07/21 17:16 Freq: Status: Active Protocol: Document 12/19/21 11:23 LRN (Rec: 12/19/21 12:10 LRN [id number]) Cardio Equipment Recumbent Stepper (Sci-Fit) Duration (Minutes) 9 Resistance 2 Seat Position 11 Other miles UE& LEs Therapeutic Exercises Supine Exercises TA during breathing Supine Exercise Name Seated: TA tightening during breathing Equipment Used 25 deg elevation Reps/Minutes 2 min Comments Min v cuing to keep TA tight & breath through chest- hand lower ab self fb Sitting Exercises Piriformis stretch Sitting Exercise Name Piriformis stretch, L>R Side bilateral Equipment Used black plinth Reps/Minutes 30 x2 Comments modified Piriformis stretch Hamstring stretch Sitting Exercise Name Leg extended on plinth (L>R) vs hip hinge forward Side bilateral Resistance AROM Equipment Used black plinth- hip hinge Reps/Minutes 30 x3 Comments modified HS hip hinge- cued not hip ER Trunk flex stretch Sitting Exercise Name Leaning back with hands on sink and doing PPT Reps/Minutes 2' Sit<>Stand Sitting Exercise Name Sit<>Stand- crossed arms over chest Equipment Used 18 black table height (states same height chair at home) Reps/Minutes 7x in 30; 12x in 48 secs/sit rest/5x in 15 secs Comments Good breathing, sit rest needed afterwards. Standing Exercises LS sink stretch Standing Exercise Name alternative LS stretch during dishe- already doing self Side bilateral Equipment Used grasp sink (forward and lateral pelvis tilt for QL stretch) Reps/Minutes 3 x30 Comments good form and response to stretch low back PT-OP-T Assessment and Plan Start: 10/07/21 17:16 Freq: Status: Active Protocol: Document 12/19/21 11:23 LRN (Rec: 12/19/21 12:10 [facility] [id number]) Physical Therapy Assessment Goals Four Impairment Decreased function Impairment LEFS score of 17/80 (60-79% impaired), IRMA of 35/50 (60-79% impaired) STG Duration 12/09/21 [facility] Goal (LTG) Improve function per LEFS or IRMA score to 40-59% impaired. LTG Duration 02/07/22 Three Impairment Decreased endurance Impairment 30 sec sit to stand - 10x ( norm for ages 60-64 is 12-17x) Short Term Goal (STG) 30 sec sit<>stand test 12x or greater. (11/07/21: 8x) (12/19/21: 7x; 12x in 48 secs, after sit rest able to do 5x more). STG Duration 12/09/21 [facility] Goal (LTG) Improve endurance per Sit to Stand Test - 17x or greater. (12/19/21: 12x > sit rest >7x) . LTG Duration 02/07/22 Two Impairment Decreased tolerance to exercise Short Term Goal (STG) Pt will be able to tolerate 10 ' minutes on Scifit exer. (11/07/21: Pt tolerated on Sci fit 8' to start and 2' to end ). (12/19/21: 9' on Scifit to start). STG Duration 12/09/21 (12/19/21: Improved to 9') [facility] Goal (LTG) Pt will be able to tolerate 15 ' minutes on Scifit exer. LTG Duration 02/07/22 One Impairment Lacks appropriate self care HEP Short Term Goal (STG) Pt will be independent on a walking program minimally 2x/ week. (10/25/21: I/S pt to start walking program) (12/19/21: Walking 3-4x/week) STG Duration 12/09/21 (12/19/21: MET GOAL) [facility] Goal (LTG) Pt will be on an independent HEP of 1/2 hr workouts. LTG Duration 02/07/22 Assessment Summary Assessment Last issued ex's are helpful for pt to be compliant with HEP and in the system. Pt has improved in tolerance to use of scifit; no improvement with sit to stand reps in 30, pt able to do 17x with only 1 rest; therefore showing improved endurance. Pt needing possibly more time between visit to work on endurance. Physical Therapy Plan Frequency and Duration Frequency of Treatment 1x/2 weeks Plan of Care Start Date 10/10/21 Plan of Care End Date 02/07/22 Next Visit Focus/Plan Next Note Type Treatment Note Next Visit Plan Increased time between visits to every 2-3 weeks to give pt more time to work on increasing her endurance between visits. Next tx: Start Scifit 10min, IRMA/LEFS Questionnaires and gait, review HEP hip flexor stretch. POC: Core and LE strengthening in sit, stand or semi- reclined (pt doesn't tolerate supine lying). Increase ex tolerance and endurance to assist pt to lower her diabetes numbers, HEP.
--- NOTE | 2022-01-03 16:42 | PT.OTN ---
Current Diagnoses Other chronic pain (01/03/22) Pain in unspecified knee (01/03/22) Sciatica, unspecified side (01/03/22) Dorsalgia, unspecified (01/03/22) Fibromyalgia (01/03/22) Physical Therapy Treatment Note PT-OP-A Visit Information Start: 10/07/21 17:16 Freq: Status: Active Protocol: Document 01/03/22 11:27 LRN (Rec: 01/03/22 12:31 LRN [id number]) Out-Patient Physical Therapy Visit Information Visit Information Visit Type Treatment Note Visit Note 12/01 Visit Start Time 11:27 Visit Stop Time 12:14 Total Visit Minutes 47 Visit Number 6 PT-OP-B Current Condition Start: 10/07/21 17:16 Freq: Status: Active Protocol: Document 10/10/21 11:25 LRN (Rec: 10/10/21 12:40 LRN [id number]) Current Condition History of Current Condition Onset Date 2 yrs ago Current Complaints Legs feel heavy, variable chronic back, knee, feet pain. History of Current Condition Having trouble walking because feel like she is walking in quicksand, and needs to exercise due to diabetes and is trying to control diabetic numbers by her diet. Chronic pain in low back, knees, feet. Fibromyalgia makes everything else harder. 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 She was told she should do the pool program, but she does not want to do that. Prior Treatments and Tests P.T. Apr 2021 for L ankle, achilles heel with some resolution and is doing her home ex's. Treatment Goals Patient/Caregiver Goals Pt goal is to learn low impact exercise, get her diabetes numbers (A1C from 7.9 to 7 or 6.9). Pt agreeble to 1x/2 wk for 7 visits total. Prior Functional Status Baseline Function- ADL's Independent Baseline Function- Mobility Independent Baseline Function- Gait Since 2013, after prolapse, gait feels like she is walking in quicksand. Baseline Function- Work/School Unemployed, on disability Baseline Function- Other Prior to fracture of L ankle was able to walk 2 [address] [place] the [employer] trail. Current Functional Impairments (Reported) Functional Limitations- ADL's Walking less than 1/4 mile. Walks around house and to dumpster and exercises UE's in 20' of ex time. Functional Limitations- Mobility/Gait Gait slow, feels like walking in quick sand. Personal Factors Other Personal Factors That May Effect Umbilical hernia, diabetes, Therapy/Recovery fibromyalgia with chronic pain in knees & feet that is variable in onset and intensity, Diez's neuroma's bilaterally, neuropathy of feet. PT-OP-C Subjective Start: 10/07/21 17:16 Freq: Status: Active Protocol: Document 01/03/22 11:27 LRN (Rec: 01/03/22 12:31 LRN [id number]) OP-PT Subjective Patient Comments Patient Comments States same. Still walking almost daily. Sometimes takes mom grocery shopping and she walks more and takes 4 days to recover while keeping up with LE ex's. States today her L Sciatic pain is worse than usual, rated 8-9/10, 6--9 on daily basis. Tries to focus on things other than the pain. 2015 had a few injections in the SIJ that didn't help. Patient Questionnaires Lower Extremity Functional Scale LEFS Score 19 LEFS Impairment 60 to 79% Impaired (Score 17- 31) Oswestry Low Back Index Oswestry Score 66 Oswestry Impairment 60 to 79% Impaired (Score 60- 79) PT-OP-E Functional Tests Start: 10/10/21 13:17 Freq: Status: Active Protocol: Document 12/19/21 11:23 LRN (Rec: 12/19/21 12:10 LRN [id number]) Functional Tests 30 Second Sit to Stand Test Score 7 PT-OP-H Neuro Start: 10/07/21 17:16 Freq: Status: Active Protocol: Document 10/10/21 11:25 LRN (Rec: 10/10/21 12:40 LRN [id number]) Sensation Evaluation Gross Sensation Gross Sensation WNL Comments Summary Comments Neuropathy in feet due to diabetes and Terrence's neuroma bilaterally. PT-OP-J Posture/Palpation/Skin Start: 10/07/21 17:16 Freq: Status: Active Protocol: Document 10/10/21 11:25 LRN (Rec: 10/10/21 12:40 LRN [id number]) Posture Evaluation Position Standing Head/C-Spine Posture Forward Head T-Spine Posture Flattened L-Spine Posture Increased Lordosis Arm Posture (L) Internally Rotated,(R) Internally Rotated Pelvis Posture Anteriorly Tilted Weight Distribution Balanced Ankle/Foot Posture (L) Calcaneal Inversion,(R) Calcaneal Inversion Comments Posture Comments Dowagers hump, Very wide stance, ankles IV L>R. PT-OP-K Range of Motion Start: 10/07/21 17:16 Freq: Status: Active Protocol: Document 10/10/21 11:25 LRN (Rec: 10/10/21 12:40 LRN [id number]) Lumbar Spine Range of Motion Lumbar Spine Active Percentage Flexion 80 Rotation Left 50 Lateral Flexion Left 50 Lateral Flexion Right 90 ROM Limitations Soft Tissue Tightness,Pain Comments L LB/Sciatic Pain rotating left. Hip Goniometric Range of Motion Hip ROM Limitations Comments Pt LE mobility is WFL for sitting transfers and walking. PT-OP-M Strength Start: 10/07/21 17:16 Freq: Status: Active Protocol: Document 10/10/21 11:25 LRN (Rec: 10/10/21 12:40 LRN [id number]) Trunk Strength Trunk Manual Muscle Testing Extension 2- Poor- Comments Deferred further testing due to pt not able tolerate supine lying. Pt had difficulty breathing in supine and hip pain in sidelie. Hip Strength Hip Manual Muscle Testing Right Flexion (L2) 3- Fair- Comments Deferred further testing due to pt not able to tolerate other testing positions. Left Flexion (L2) 3- Fair- Comments Deferred further testing due to pt not able to tolerate other testing positions. Knee Strength Knee Manual Muscle Testing Right Flexion (S2) 5 Normal Extension (L3) 5 Normal Left Flexion (S2) 5 Normal Extension (L3) 4- Good- Ankle/Foot Strength Ankle and Foot Manual Muscle Testing Right Dorsiflexion (L4) 5 Normal Plantarflexion (S1) 3+ Fair+ Inversion 5 Normal Eversion (S1) 5 Normal Left Dorsiflexion (L4) 5 Normal Plantarflexion (S1) 3+ Fair+ Inversion 3 Fair Eversion (S1) 5 Normal PT-OP-Q Treatments Start: 10/07/21 17:16 Freq: Status: Active Protocol: Document 01/03/22 11:27 LRN (Rec: 01/03/22 12:31 LRN [id number]) Cardio Equipment Recumbent Stepper (Sci-Fit) Duration (Minutes) 7 Resistance 2 Seat Position 11 Other 0.7 miles, using UE/LE's Therapeutic Exercises Supine Exercises TA during breathing Supine Exercise Name Inclined 25 deg's from flat Equipment Used 25 deg elevation Reps/Minutes 3 min Comments Low malia to position, switched to sitting/standing Sitting Exercises TA during breathing Sitting Exercise Name Seated: TA tightening during breathing Equipment Used Mirror, pt hands on belly & chest to monitor mvmt Reps/Minutes 5' Comments Pt able to get better breathing in upper chest sitting Piriformis stretch Sitting Exercise Name Piriformis stretch, L>R Side bilateral Equipment Used black plinth Reps/Minutes 30 x2 Comments modified Piriformis stretch Sit<>Stand Sitting Exercise Name Sit<>Stand- crossed arms over chest Equipment Used 18 black table height (states same height chair at home) Reps/Minutes 7x & 11x in 30 (rest btn bouts); 13x in 35 secs/sit rest/13x in 41secs Comments Good breathing, sit rest needed afterwards. Standing Exercises TA during breathing Standing Exercise Name TA tightening during breathing Equipment Used Mirror, pt hands on belly & chest to monitor mvmt Reps/Minutes 5' Hip flexor/gastroc stretch Standing Exercise Name Hip flexor/gastroc stretch w/ PPT Side bilateral Reps/Minutes 30 z 2 Comments Extra time to get max tolerated stretch to Iliopsoas & Gastroc. Other Exercises Hip flexor stretch Other Exercise Name See standing stretch PT-OP-T Assessment and Plan Start: 10/07/21 17:16 Freq: Status: Active Protocol: Document 01/03/22 11:27 LRN (Rec: 01/03/22 12:31 LRN [id number]) Physical Therapy Assessment Goals Four Impairment Decreased function Impairment LEFS score of 17/80 (60-79% impaired, score 17-31), IRMA of 35/50 (60-79% impaired, score 60-79/100) STG Duration 12/09/21 [facility] [employer] Goal (LTG) Improve function per LEFS or IRMA score to 40-59% impaired. (01/03/22: LEFS score 19/80; IRMA score 33/50; slight improvement) LTG Duration 02/07/22 (01/03/22: Slight improvement) Three Impairment Decreased endurance Impairment 30 sec sit to stand - 10x ( norm for ages 60-64 is 12-17x) Short Term Goal (STG) 30 sec sit<>stand test 12x or greater. (11/07/21: 8x) (12/19/21: 7x; 12x in 48 secs, after sit rest able to do 5x more). (01/03/22: 7x & 11x in 30 secs ) STG Duration 12/09/21 (01/03/22: Progressing) [facility] Goal (LTG) Improve endurance per Sit to Stand Test - 17x or greater. (12/19/21: 12x > sit rest >7x) . (01/03/22: 4 bouts: 7x & 11x in 30 secs, 13x x 2 with long rests btn bouts of 35-41 secs; over 30-41 secs). LTG Duration 02/07/22 Two Impairment Decreased tolerance to exercise Short Term Goal (STG) Pt will be able to tolerate 10 ' minutes on Scifit exer. (11/07/21: Pt tolerated on Sci fit 8' to start and 2' to end ). (12/19/21: 9' on Scifit to start). STG Duration 12/09/21 (12/19/21: Improved to 9') [facility] [employer] Goal (LTG) Pt will be able to tolerate 15 ' minutes on Scifit exer. LTG Duration 02/07/22 One Impairment Lacks appropriate self care HEP Short Term Goal (STG) Pt will be independent on a walking program minimally 2x/ week. (10/25/21: I/S pt to start walking program) (12/19/21: Walking 3-4x/week) STG Duration 12/09/21 (12/19/21: MET GOAL) [facility] [employer] [facility] Goal (LTG) Pt will be on an independent HEP of 1/2 hr workouts. LTG Duration 02/07/22 Assessment Summary Assessment Pt presented with lower ex tolerance today and onset of anxiety when placed inclined ( same as last session) for TA breathing exercise. Pt SOB with (sit<>stand) exercises and required long rest periods after each bout, and extra long rest after last bout of sit<>stand. Pt continues to walk at home, but pt not tracking distance or time. Pt to be more aware with walking program, time or distance. Since last treatment she tolerated more sit to stand bouts and her function per LEFS & IRMA scores are slightly improved showing some functional improvement. Physical Therapy Plan Frequency and Duration Frequency of Treatment 1x/2 weeks Plan of Care Start Date 10/10/21 Plan of Care End Date 02/07/22 Next Visit Focus/Plan Next Note Type Treatment Note Next Visit Plan Increased time between visits to every 2-3 weeks to give pt more time to work on increasing her endurance between visits. Pt to monitor time (and/or distance) of walking tolerated and track time (and or distance) increased daily or every few days. Next tx: Start Scifit (goal) 10 min, gait in clinic. POC: Core and LE strengthening in sit, stand or semi- reclined (pt doesn't tolerate supine lying). Increase ex tolerance and endurance to assist pt to lower her diabetes numbers, HEP.
--- NOTE | 2022-02-13 17:15 | PT.OTN ---
Current Diagnoses Other chronic pain (02/13/22) Pain in unspecified knee (02/13/22) Sciatica, unspecified side (02/13/22) Dorsalgia, unspecified (02/13/22) Fibromyalgia (02/13/22) Physical Therapy Treatment Note PT-OP-A Visit Information Start: 10/07/21 17:16 Freq: Status: Active Protocol: Document 02/13/22 10:38 LRN (Rec: 02/13/22 11:22 LRN [id number]) Out-Patient Physical Therapy Visit Information Visit Information Visit Type Progress Note Visit Note 12/31 Visit Start Time 10:38 Visit Stop Time 11:20 Total Visit Minutes 42 Visit Number 7 Evaluation Information Evaluation Date 10/10/21 Precautions Precautions Prolapse repair on 07/22/19, Imtiaz shoulders 2009 & 2010. Broke R wrist & L ankle 2020, Umbilical hernia 2016, fibromyalgia, chronic pain in knees & feet that is variable in onset and intensity, diabetes, vision problems. PT-OP-B Current Condition Start: 10/07/21 17:16 Freq: Status: Active Protocol: Document 10/10/21 11:25 LRN (Rec: 10/10/21 12:40 LRN [id number]) Current Condition History of Current Condition Onset Date 2 yrs ago Current Complaints Legs feel heavy, variable chronic back, knee, feet pain. History of Current Condition Having trouble walking because feel like she is walking in quicksand, and needs to exercise due to diabetes and is trying to control diabetic numbers by her diet. Chronic pain in low back, knees, feet. Fibromyalgia makes everything else harder. 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 She was told she should do the pool program, but she does not want to do that. Prior Treatments and Tests P.T. Apr 2021 for L ankle, achilles heel with some resolution and is doing her home ex's. Treatment Goals Patient/Caregiver Goals Pt goal is to learn low impact exercise, get her diabetes numbers (A1C from 7.9 to 7 or 6.9). Pt agreeble to 1x/2 wk for 7 visits total. Prior Functional Status Baseline Function- ADL's Independent Baseline Function- Mobility Independent Baseline Function- Gait Since 2013, after prolapse, gait feels like she is walking in quicksand. Baseline Function- Work/School Unemployed, on disability Baseline Function- Other Prior to fracture of L ankle was able to walk [address] [place]. Current Functional Impairments (Reported) Functional Limitations- ADL's Walking less than 1/4 mile. Walks around house and to dumpster and exercises UE's in 20' of ex time. Functional Limitations- Mobility/Gait Gait slow, feels like walking in quick sand. Personal Factors Other Personal Factors That May Effect Umbilical hernia, diabetes, Therapy/Recovery fibromyalgia with chronic pain in knees & feet that is variable in onset and intensity, Diez's neuroma's bilaterally, neuropathy of feet. PT-OP-C Subjective Start: 10/07/21 17:16 Freq: Status: Active Protocol: Document 02/13/22 10:38 LRN (Rec: 02/13/22 11:22 LRN [id number]) OP-PT Subjective Patient Comments Patient Comments States after last session she couldn't walk for 2 days because her legs were too tired. Patient Questionnaires Oswestry Low Back Index Oswestry Score 62 Oswestry Impairment 60 to 79% Impaired (Score 60- 79) OP-PT Pain Assessment Pain Assessment Grid Paper Pain Assessment Grid Completed Yes Location Back/L buttock/SIJ Pain Location Details L low back/buttock/SIJ Intensity 7 Scale Used Numeric (0 - 10) Description Sharp,Shooting PT-OP-E Functional Tests Start: 10/10/21 13:17 Freq: Status: Active Protocol: Document 12/19/21 11:23 LRN (Rec: 12/19/21 12:10 LRN [id number]) Functional Tests 30 Second Sit to Stand Test Score 7 PT-OP-H Neuro Start: 10/07/21 17:16 Freq: Status: Active Protocol: Document 10/10/21 11:25 LRN (Rec: 10/10/21 12:40 LRN [id number]) Sensation Evaluation Gross Sensation Gross Sensation WNL Comments Summary Comments Neuropathy in feet due to diabetes and Terrence's neuroma bilaterally. PT-OP-J Posture/Palpation/Skin Start: 10/07/21 17:16 Freq: Status: Active Protocol: Document 10/10/21 11:25 LRN (Rec: 10/10/21 12:40 LRN [id number]) Posture Evaluation Position Standing Head/C-Spine Posture Forward Head T-Spine Posture Flattened L-Spine Posture Increased Lordosis Arm Posture (L) Internally Rotated,(R) Internally Rotated Pelvis Posture Anteriorly Tilted Weight Distribution Balanced Ankle/Foot Posture (L) Calcaneal Inversion,(R) Calcaneal Inversion Comments Posture Comments Dowagers hump, Very wide stance, ankles IV L>R. PT-OP-K Range of Motion Start: 10/07/21 17:16 Freq: Status: Active Protocol: Document 10/10/21 11:25 LRN (Rec: 10/10/21 12:40 LRN [id number]) Lumbar Spine Range of Motion Lumbar Spine Active Percentage Flexion 80 Rotation Left 50 Lateral Flexion Left 50 Lateral Flexion Right 90 ROM Limitations Soft Tissue Tightness,Pain Comments L LB/Sciatic Pain rotating left. Hip Goniometric Range of Motion Hip ROM Limitations Comments Pt LE mobility is WFL for sitting transfers and walking. PT-OP-M Strength Start: 10/07/21 17:16 Freq: Status: Active Protocol: Document 10/10/21 11:25 LRN (Rec: 10/10/21 12:40 LRN [id number]) Trunk Strength Trunk Manual Muscle Testing Extension 2- Poor- Comments Deferred further testing due to pt not able tolerate supine lying. Pt had difficulty breathing in supine and hip pain in sidelie. Hip Strength Hip Manual Muscle Testing Right Flexion (L2) 3- Fair- Comments Deferred further testing due to pt not able to tolerate other testing positions. Left Flexion (L2) 3- Fair- Comments Deferred further testing due to pt not able to tolerate other testing positions. Knee Strength Knee Manual Muscle Testing Right Flexion (S2) 5 Normal Extension (L3) 5 Normal Left Flexion (S2) 5 Normal Extension (L3) 4- Good- Ankle/Foot Strength Ankle and Foot Manual Muscle Testing Right Dorsiflexion (L4) 5 Normal Plantarflexion (S1) 3+ Fair+ Inversion 5 Normal Eversion (S1) 5 Normal Left Dorsiflexion (L4) 5 Normal Plantarflexion (S1) 3+ Fair+ Inversion 3 Fair Eversion (S1) 5 Normal PT-OP-Q Treatments Start: 10/07/21 17:16 Freq: Status: Active Protocol: Document 02/13/22 10:38 LRN (Rec: 02/13/22 13:18 LRN [id number]) Cardio Equipment Recumbent Stepper (Sci-Fit) Duration (Minutes) 9 Resistance 2 Seat Position 11 Other Long rest needed after exercise Therapeutic Exercises Sitting Exercises Trunk Rot Sitting Exercise Name Trunk Rot strengthening Side bilateral Equipment Used L2 TB Reps/Minutes 10x 3 Comments Hands across chest (Rot R hands away from body 6) Trunk flex strengthening Sitting Exercise Name Chest press unsupported trunk Side bilateral Equipment Used L2 TB Reps/Minutes 10x 3 Piriformis stretch Sitting Exercise Name Piriformis stretch, L>R Side bilateral Equipment Used black plinth Reps/Minutes 30 x2 Comments modified Piriformis stretch Hamstring stretch Sitting Exercise Name Leg extended on plinth (L>R) vs hip hinge forward Side bilateral Resistance AROM Equipment Used black plinth- hip hinge Reps/Minutes 30 x3 Comments modified HS hip hinge- cued not hip ER Sit<>Stand Sitting Exercise Name Sit<>Stand- crossed arms over chest Equipment Used 18 black table height (states same height chair at home) Reps/Minutes 12x in 30 Standing Exercises Hip flexor/gastroc stretch Standing Exercise Name Hip flexor/gastroc stretch w/ PPT Side bilateral Reps/Minutes 60 z 2 Comments Extra time to get max tolerated stretch to Iliopsoas & Gastroc. PT-OP-T Assessment and Plan Start: 10/07/21 17:16 Freq: Status: Active Protocol: Document 02/13/22 10:38 LRN (Rec: 02/13/22 11:22 LRN [id number]) Physical Therapy Assessment Rehab Potential Rehabilitation Potential Good Evaluation Complexity Number of Personal Factors/Comorbidities 3 or More Number of Body Systems Impaired 4 or More Clinical Presentation at Evaluation Evolving Impairments Impairments Activity Tolerance,Gait,Pain, Posture,Strength Goals Four Impairment Decreased function Impairment LEFS score of 17/80 (60-79% impaired, score 17-31), IRMA of 35/50 (60-79% impaired, score 60-79/100) STG Duration 12/09/21 Craps Manager Goal (LTG) Improve function per LEFS or IRMA score to 40-59% impaired. (01/03/22: LEFS score 19/80; IRMA score 33/50; slight improvement) (02/13/22: IRMA score is 31/50 = 62/100, 60-79% impaired) LTG Duration 02/07/22 (02/13/22: Slight improvement per IRMA score) Three Impairment Decreased endurance Impairment 30 sec sit to stand - 10x ( norm for ages 60-64 is 12-17x) Short Term Goal (STG) 30 sec sit<>stand test 12x or greater. (11/07/21: 8x) (12/19/21: 7x; 12x in 48 secs, after sit rest able to do 5x more). (01/03/22: 7x & 11x in 30 secs ) STG Duration 12/09/21 (01/03/22: Progressing) Nursing Home Goal (LTG) Improve endurance per Sit to Stand Test - 17x or greater. (12/19/21: 12x > sit rest >7x) . (01/03/22: 4 bouts: 7x & 11x in 30 secs, 13x x 2 with long rests btn bouts of 35-41 secs; over 30-41 secs). LTG Duration 02/07/22 Two Impairment Decreased tolerance to exercise Short Term Goal (STG) Pt will be able to tolerate 10 ' minutes on Scifit exer. (11/07/21: Pt tolerated on Sci fit 8' to start and 2' to end ). (12/19/21: 9' on Scifit to start). STG Duration 12/09/21 (12/19/21: Improved to 9') Craps Manager Goal (LTG) Pt will be able to tolerate 15 ' minutes on Scifit exer. LTG Duration 02/07/22 One Impairment Lacks appropriate self care HEP Short Term Goal (STG) Pt will be independent on a walking program minimally 2x/ week. (10/25/21: I/S pt to start walking program) (12/19/21: Walking 3-4x/week) STG Duration 12/09/21 (12/19/21: MET GOAL) Nursing Home Goal (LTG) Pt will be on an independent HEP of 1/2 hr workouts. LTG Duration 02/07/22 Progress Towards Goals Progress Comments Slight improvement in function per IRMA score from 70 to 62 ( 60-79% impaired, score 60-79) Assessment Summary Assessment Pt has improved her tolerance of exercise although pain limits her activity level she continues to press forward as she tolerates. Physical Therapy Plan Frequency and Duration Frequency of Treatment 1x/2 weeks Plan of Care Start Date 02/13/22 Plan of Care End Date 04/14/22 Therapeutic Interventions Therapeutic Interventions Balance Training,Gait Training ,Home Exercise Program,Manual Therapy,Patient/Caregiver Education,Self-Care/Home Management,Soft Tissue Mobilization,Therapeutic Exercises Modalities Cold Pack/Ice Massage,Electric Stimulation,Hot Packs, Ultrasound Next Visit Focus/Plan Next Note Type Treatment Note Next Visit Plan Time between visits to every 2 -3 weeks to give pt more time to work on increasing her endurance between visits. Pt to monitor time (and/or distance) of walking tolerated and track time (and or distance) increased daily or every few days. Next tx: LEFS, Start 10-15' Scifit (goal #2), gait in clinic. POC: Core and LE strengthening in sit, stand or semi- reclined (pt doesn't tolerate supine lying). Increase ex tolerance and endurance to assist pt to lower her diabetes numbers, HEP.
--- NOTE | 2022-02-13 17:16 | PT.OPPOC ---
Physical, Occupational & Speech Therapy At [facility] Current Diagnoses Other chronic pain (02/13/22) Pain in unspecified knee (02/13/22) Sciatica, unspecified side (02/13/22) Dorsalgia, unspecified (02/13/22) Fibromyalgia (02/13/22) Visit Care Team Role Provider Type Gianluca Caraballo DO Attending Provider Physician Family Provider Primary Care Provider Referring Provider Specialty: Family Practice Address: [address] [place] [address] Email: [email or web address] Of Care PT-OP-T Assessment and Plan Start: 10/07/21 17:16 Freq: Status: Active Protocol: Document 02/13/22 10:38 LRN (Rec: 02/13/22 11:22 LRN [id number]) Physical Therapy Assessment Rehab Potential Rehabilitation Potential Good Evaluation Complexity Number of Personal Factors/Comorbidities 3 or More Number of Body Systems Impaired 4 or More Clinical Presentation at Evaluation Evolving Impairments Impairments Activity Tolerance,Gait,Pain, Posture,Strength Goals Four Impairment Decreased function Impairment LEFS score of 17/80 (60-79% impaired, score 17-31), IRMA of 35/50 (60-79% impaired, score 60-79/100) STG Duration 12/09/21 Detention Goal (LTG) Improve function per LEFS or IRMA score to 40-59% impaired. (01/03/22: LEFS score 19/80; IRMA score 33/50; slight improvement) (02/13/22: IRMA score is 31/50 = 62/100, 60-79% impaired) LTG Duration 02/07/22 (02/13/22: Slight improvement per IRMA score) Three Impairment Decreased endurance Impairment 30 sec sit to stand - 10x ( norm for ages 60-64 is 12-17x) Short Term Goal (STG) 30 sec sit<>stand test 12x or greater. (11/07/21: 8x) (12/19/21: 7x; 12x in 48 secs, after sit rest able to do 5x more). (01/03/22: 7x & 11x in 30 secs ) STG Duration 12/09/21 (01/03/22: Progressing) Detention Goal (LTG) Improve endurance per Sit to Stand Test - 17x or greater. (12/19/21: 12x > sit rest >7x) . (01/03/22: 4 bouts: 7x & 11x in 30 secs, 13x x 2 with long rests btn bouts of 35-41 secs; over 30-41 secs). LTG Duration 02/07/22 Two Impairment Decreased tolerance to exercise Short Term Goal (STG) Pt will be able to tolerate 10 ' minutes on Scifit exer. (11/07/21: Pt tolerated on Sci fit 8' to start and 2' to end ). (12/19/21: 9' on Scifit to start). STG Duration 12/09/21 (12/19/21: Improved to 9') Respiratory Care Technician Goal (LTG) Pt will be able to tolerate 15 ' minutes on Scifit exer. LTG Duration 02/07/22 One Impairment Lacks appropriate self care HEP Short Term Goal (STG) Pt will be independent on a walking program minimally 2x/ week. (10/25/21: I/S pt to start walking program) (12/19/21: Walking 3-4x/week) STG Duration 12/09/21 (12/19/21: MET GOAL) Detention Goal (LTG) Pt will be on an independent HEP of 1/2 hr workouts. LTG Duration 02/07/22 Progress Towards Goals Progress Comments Slight improvement in function per IRMA score from 70 to 62 ( 60-79% impaired, score 60-79) Assessment Summary Assessment Pt has improved her tolerance of exercise although pain limits her activity level she continues to press forward as she tolerates. Physical Therapy Plan Frequency and Duration Frequency of Treatment 1x/2 weeks Plan of Care Start Date 02/13/22 Plan of Care End Date 04/14/22 Therapeutic Interventions Therapeutic Interventions Balance Training,Gait Training ,Home Exercise Program,Manual Therapy,Patient/Caregiver Education,Self-Care/Home Management,Soft Tissue Mobilization,Therapeutic Exercises Modalities Cold Pack/Ice Massage,Electric Stimulation,Hot Packs, Ultrasound Next Visit Focus/Plan Next Note Type Treatment Note Next Visit Plan Time between visits to every 2 -3 weeks to give pt more time to work on increasing her endurance between visits. Pt to monitor time (and/or distance) of walking tolerated and track time (and or distance) increased daily or every few days. Next tx: LEFS, Start 10-15' Scifit (goal #2), gait in clinic. POC: Core and LE strengthening in sit, stand or semi- reclined (pt doesn't tolerate supine lying). Increase ex tolerance and endurance to assist pt to lower her diabetes numbers, HEP. Plan of Care Dates Plan of Care Start Date 02/13/22 Plan of Care End Date 04/14/22 Electronically Signed by: Juju Holliday, PT 02/13/22 [id number] If you are in agreement with this Plan of Care, please return a signed and dated copy. I have reviewed this Plan of Care and certify that the skilled therapy services above are required to meet the patient?s needs. Physician Signature Date Printed Name and Credentials Clinical Instructor Signature Printed Name and Credentials
--- NOTE | 2022-03-13 12:40 | PT.OTN ---
Current Diagnoses Other chronic pain (03/13/22) Pain in unspecified knee (03/13/22) Sciatica, unspecified side (03/13/22) Dorsalgia, unspecified (03/13/22) Fibromyalgia (03/13/22) Physical Therapy Treatment Note PT-OP-A Visit Information Start: 10/07/21 17:16 Freq: Status: Active Protocol: Document 03/13/22 10:34 LRN (Rec: 03/13/22 11:14 LRN [id number]) Out-Patient Physical Therapy Visit Information Visit Information Visit Type Treatment Note Visit Note 01/31 Visit Start Time 10:34 Visit Stop Time 11:12 Total Visit Minutes 38 Visit Number 8 Evaluation Information Evaluation Date 10/10/21 Precautions Precautions Prolapse repair on 07/22/19, Imtiaz shoulders 2009 & 2010. Broke R wrist & L ankle 2020, Umbilical hernia 2016, fibromyalgia, chronic pain in knees & feet that is variable in onset and intensity, diabetes, vision problems. PT-OP-B Current Condition Start: 10/07/21 17:16 Freq: Status: Active Protocol: Document 10/10/21 11:25 LRN (Rec: 10/10/21 12:40 LRN [id number]) Current Condition History of Current Condition Onset Date 2 yrs ago Current Complaints Legs feel heavy, variable chronic back, knee, feet pain. History of Current Condition Having trouble walking because feel like she is walking in quicksand, and needs to exercise due to diabetes and is trying to control diabetic numbers by her diet. Chronic pain in low back, knees, feet. Fibromyalgia makes everything else harder. 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 She was told she should do the pool program, but she does not want to do that. Prior Treatments and Tests P.T. Apr 2021 for L ankle, achilles heel with some resolution and is doing her home ex's. Treatment Goals Patient/Caregiver Goals Pt goal is to learn low impact exercise, get her diabetes numbers (A1C from 7.9 to 7 or 6.9). Pt agreeble to 1x/2 wk for 7 visits total. Prior Functional Status Baseline Function- ADL's Independent Baseline Function- Mobility Independent Baseline Function- Gait Since 2013, after prolapse, gait feels like she is walking in quicksand. Baseline Function- Work/School Unemployed, on disability Baseline Function- Other Prior to fracture of L ankle was able to walk 2 [place] of the [employer] trail. Current Functional Impairments (Reported) Functional Limitations- ADL's Walking less than 1/4 mile. Walks around house and to dumpster and exercises UE's in 20' of ex time. Functional Limitations- Mobility/Gait Gait slow, feels like walking in quick sand. Personal Factors Other Personal Factors That May Effect Umbilical hernia, diabetes, Therapy/Recovery fibromyalgia with chronic pain in knees & feet that is variable in onset and intensity, Diez's neuroma's bilaterally, neuropathy of feet. PT-OP-C Subjective Start: 10/07/21 17:16 Freq: Status: Active Protocol: Document 03/13/22 10:34 LRN (Rec: 03/13/22 11:14 LRN [id number]) OP-PT Subjective Patient Comments Patient Comments Walking every other day 10 minutes and walks with her mother. States she lost 10#. Patient Questionnaires Lower Extremity Functional Scale LEFS Score 22 LEFS Impairment 60 to 79% Impaired (Score 17- 31) PT-OP-E Functional Tests Start: 10/10/21 13:17 Freq: Status: Active Protocol: Document 03/13/22 10:34 LRN (Rec: 03/13/22 11:14 LRN [id number]) Functional Tests 30 Second Sit to Stand Test Score 13x Comments Plinth hgt 18 (lowest hgt) PT-OP-H Neuro Start: 10/07/21 17:16 Freq: Status: Active Protocol: Document 10/10/21 11:25 LRN (Rec: 10/10/21 12:40 LRN [id number]) Sensation Evaluation Gross Sensation Gross Sensation WNL Comments Summary Comments Neuropathy in feet due to diabetes and Terrence's neuroma bilaterally. PT-OP-J Posture/Palpation/Skin Start: 10/07/21 17:16 Freq: Status: Active Protocol: Document 10/10/21 11:25 LRN (Rec: 10/10/21 12:40 LRN [id number]) Posture Evaluation Position Standing Head/C-Spine Posture Forward Head T-Spine Posture Flattened L-Spine Posture Increased Lordosis Arm Posture (L) Internally Rotated,(R) Internally Rotated Pelvis Posture Anteriorly Tilted Weight Distribution Balanced Ankle/Foot Posture (L) Calcaneal Inversion,(R) Calcaneal Inversion Comments Posture Comments Dowagers hump, Very wide stance, ankles IV L>R. PT-OP-K Range of Motion Start: 10/07/21 17:16 Freq: Status: Active Protocol: Document 10/10/21 11:25 LRN (Rec: 10/10/21 12:40 LRN [id number]) Lumbar Spine Range of Motion Lumbar Spine Active Percentage Flexion 80 Rotation Left 50 Lateral Flexion Left 50 Lateral Flexion Right 90 ROM Limitations Soft Tissue Tightness,Pain Comments L LB/Sciatic Pain rotating left. Hip Goniometric Range of Motion Hip ROM Limitations Comments Pt LE mobility is WFL for sitting transfers and walking. PT-OP-M Strength Start: 10/07/21 17:16 Freq: Status: Active Protocol: Document 10/10/21 11:25 LRN (Rec: 10/10/21 12:40 LRN [id number]) Trunk Strength Trunk Manual Muscle Testing Extension 2- Poor- Comments Deferred further testing due to pt not able tolerate supine lying. Pt had difficulty breathing in supine and hip pain in sidelie. Hip Strength Hip Manual Muscle Testing Right Flexion (L2) 3- Fair- Comments Deferred further testing due to pt not able to tolerate other testing positions. Left Flexion (L2) 3- Fair- Comments Deferred further testing due to pt not able to tolerate other testing positions. Knee Strength Knee Manual Muscle Testing Right Flexion (S2) 5 Normal Extension (L3) 5 Normal Left Flexion (S2) 5 Normal Extension (L3) 4- Good- Ankle/Foot Strength Ankle and Foot Manual Muscle Testing Right Dorsiflexion (L4) 5 Normal Plantarflexion (S1) 3+ Fair+ Inversion 5 Normal Eversion (S1) 5 Normal Left Dorsiflexion (L4) 5 Normal Plantarflexion (S1) 3+ Fair+ Inversion 3 Fair Eversion (S1) 5 Normal PT-OP-Q Treatments Start: 10/07/21 17:16 Freq: Status: Active Protocol: Document 03/13/22 10:34 LRN (Rec: 03/13/22 11:14 LRN [id number]) Cardio Equipment Recumbent Stepper (Sci-Fit) Duration (Minutes) 10 Resistance 2 Seat Position 11 Other Long rest needed after exercise Therapeutic Exercises Sitting Exercises Trunk Rot Sitting Exercise Name Trunk Rot strengthening Side bilateral Equipment Used L2 TB Reps/Minutes 10x 3 Comments Hands across chest (Rot R hands away from body 6) Trunk flex strengthening Sitting Exercise Name Chest press unsupported trunk Side bilateral Equipment Used L2 TB Reps/Minutes 10x 3 Hamstring stretch Sitting Exercise Name Leg extended on plinth, hip hinge fwd, f/b active stretch Side bilateral Resistance AROM Equipment Used black plinth - hip hinge Reps/Minutes 30 x2 Comments modified HS hip hinge- cued not hip ER Sit<>Stand Sitting Exercise Name Sit<>Stand- crossed arms over chest Equipment Used 18 black table height (states same height chair at home) Reps/Minutes 13x in 30 Standing Exercises Hip flexor/gastroc stretch Standing Exercise Name Hip flexor/gastroc stretch w/ PPT Side bilateral Reps/Minutes 60 z 2 Comments Extra time to get max tolerated stretch to Iliopsoas & Gastroc. PT-OP-T Assessment and Plan Start: 10/07/21 17:16 Freq: Status: Active Protocol: Document 03/13/22 10:34 LRN (Rec: 03/13/22 11:14 LRN [id number]) Physical Therapy Assessment Goals Four Impairment Decreased function Impairment LEFS score of 17/80 (60-79% impaired, score 17-31), IRMA of 35/50 (60-79% impaired, score 60-79/100) STG Duration 12/09/21 Sign Language Interpreter Goal (LTG) Improve function per LEFS or IRMA score to 40-59% impaired. (01/03/22: LEFS score 19/80; IRMA score 33/50; slight improvement) (02/13/22: IRMA score is 31/50 = 62/100, 60-79% impaired) LTG Duration 02/07/22 (02/13/22: Slight improvement per IRMA score) Three Impairment Decreased endurance Impairment 30 sec sit to stand - 10x ( norm for ages 60-64 is 12-17x) Short Term Goal (STG) 30 sec sit<>stand test 12x or greater. (11/07/21: 8x) (12/19/21: 7x; 12x in 48 secs, after sit rest able to do 5x more). (01/03/22: 7x & 11x in 30 secs ) (03/13/22: 13x in 30 secs) STG Duration 12/09/21 (: GOAL MET) Sign Language Interpreter Goal (LTG) Improve endurance per Sit to Stand Test - 17x or greater. (12/19/21: 12x > sit rest >7x) . (01/03/22: 4 bouts: 7x & 11x in 30 secs, 13x x 2 with long rests btn bouts of 35-41 secs; over 30-41 secs). LTG Duration 02/07/22 Two Impairment Decreased tolerance to exercise Short Term Goal (STG) Pt will be able to tolerate 10 ' minutes on Scifit exer. (11/07/21: Pt tolerated on Sci fit 8' to start and 2' to end ). (12/19/21: 9' on Scifit to start). STG Duration 12/09/21 (03/13/22: MET GOAL) Sign Language Interpreter Goal (LTG) Pt will be able to tolerate 15 ' minutes on Scifit exer. LTG Duration 02/07/22 One Impairment Lacks appropriate self care HEP Short Term Goal (STG) Pt will be independent on a walking program minimally 2x/ week. (10/25/21: I/S pt to start walking program) (12/19/21: Walking 3-4x/week) STG Duration 12/09/21 (12/19/21: MET GOAL) Sign Language Interpreter Goal (LTG) Pt will be on an independent HEP of 1/2 hr workouts. LTG Duration 02/07/22 Progress Towards Goals Progress Comments STG #2 & #3 MET (endurance and sit<>stands). Assessment Summary Assessment Pt appeared to tolerate Scifit for full 10 minutes with greater ease and did not require sit rest after ex; therefore endurance has improved. Function has improved, but overall functional impairment hasn't changed, per LEFS score of 22 (was 19). Pt attitude is positive with loss of weight and improved endurance/energy. Physical Therapy Plan Frequency and Duration Frequency of Treatment 1x/2 weeks Plan of Care Start Date 02/13/22 Plan of Care End Date 04/14/22 Next Visit Focus/Plan Next Note Type Treatment Note Next Visit Plan Time between visits to every 2 -3 weeks to give pt more time to work on increasing her endurance between visits. Pt to monitor time (and/or distance) of walking tolerated and increase daily or every few days. Next tx: Incr to 15' Scifit ( LTG #2), & add gait in clinic . POC: Core and LE strengthening in sit, stand or semi- reclined (pt doesn't tolerate supine lying). Increase ex tolerance and endurance to assist pt to lower her diabetes numbers, HEP.
--- NOTE | 2022-03-28 17:34 | PT.OTN ---
Current Diagnoses Other chronic pain (03/28/22) Pain in unspecified knee (03/28/22) Sciatica, unspecified side (03/28/22) Dorsalgia, unspecified (03/28/22) Fibromyalgia (03/28/22) Physical Therapy Treatment Note PT-OP-A Visit Information Start: 10/07/21 17:16 Freq: Status: Active Protocol: Document 03/28/22 10:39 LRN (Rec: 03/28/22 11:20 LRN [id number]) Out-Patient Physical Therapy Visit Information Visit Information Visit Type Treatment Note Visit Start Time 10:39 Visit Stop Time 11:17 Total Visit Minutes 38 Visit Number 9 Evaluation Information Evaluation Date 10/10/21 Precautions Precautions Prolapse repair on 07/22/19, Imtiaz shoulders 2009 & 2010. Broke R wrist & L ankle 2020, Umbilical hernia 2016, fibromyalgia, chronic pain in knees & feet that is variable in onset and intensity, diabetes, vision problems. PT-OP-B Current Condition Start: 10/07/21 17:16 Freq: Status: Active Protocol: Document 10/10/21 11:25 LRN (Rec: 10/10/21 12:40 LRN [id number]) Current Condition History of Current Condition Onset Date 2 yrs ago Current Complaints Legs feel heavy, variable chronic back, knee, feet pain. History of Current Condition Having trouble walking because feel like she is walking in quicksand, and needs to exercise due to diabetes and is trying to control diabetic numbers by her diet. Chronic pain in low back, knees, feet. Fibromyalgia makes everything else harder. 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 She was told she should do the pool program, but she does not want to do that. Prior Treatments and Tests P.T. Apr 2021 for L ankle, achilles heel with some resolution and is doing her home ex's. Treatment Goals Patient/Caregiver Goals Pt goal is to learn low impact exercise, get her diabetes numbers (A1C from 7.9 to 7 or 6.9). Pt agreeble to 1x/2 wk for 7 visits total. Prior Functional Status Baseline Function- ADL's Independent Baseline Function- Mobility Independent Baseline Function- Gait Since 2013, after prolapse, gait feels like she is walking in quicksand. Baseline Function- Work/School Unemployed, on disability Baseline Function- Other Prior to fracture of L ankle was able to walk [address] [place] trail. Current Functional Impairments (Reported) Functional Limitations- ADL's Walking less than 1/4 mile. Walks around house and to dumpster and exercises UE's in 20' of ex time. Functional Limitations- Mobility/Gait Gait slow, feels like walking in quick sand. Personal Factors Other Personal Factors That May Effect Umbilical hernia, diabetes, Therapy/Recovery fibromyalgia with chronic pain in knees & feet that is variable in onset and intensity, Diez's neuroma's bilaterally, neuropathy of feet. PT-OP-C Subjective Start: 10/07/21 17:16 Freq: Status: Active Protocol: Document 03/28/22 10:39 LRN (Rec: 03/28/22 11:20 LRN [id number]) OP-PT Subjective Patient Comments Patient Comments States her R foot has been hurting, possibly from Terrence' s Neuroma. Patient Questionnaires Lower Extremity Functional Scale LEFS Score 21 LEFS Impairment 60 to 79% Impaired (Score 17- 31) Oswestry Low Back Index Oswestry Score 58 Oswestry Impairment 40 to 59% Impaired (Score 40- 59) PT-OP-E Functional Tests Start: 10/10/21 13:17 Freq: Status: Active Protocol: Document 03/28/22 10:39 LRN (Rec: 03/28/22 11:20 LRN [id number]) Functional Tests 30 Second Sit to Stand Test Score 14 Comments No use of hands. PT-OP-H Neuro Start: 10/07/21 17:16 Freq: Status: Active Protocol: Document 10/10/21 11:25 LRN (Rec: 10/10/21 12:40 LRN [id number]) Sensation Evaluation Gross Sensation Gross Sensation WNL Comments Summary Comments Neuropathy in feet due to diabetes and Terrence's neuroma bilaterally. PT-OP-J Posture/Palpation/Skin Start: 10/07/21 17:16 Freq: Status: Active Protocol: Document 10/10/21 11:25 LRN (Rec: 10/10/21 12:40 LRN [id number]) Posture Evaluation Position Standing Head/C-Spine Posture Forward Head T-Spine Posture Flattened L-Spine Posture Increased Lordosis Arm Posture (L) Internally Rotated,(R) Internally Rotated Pelvis Posture Anteriorly Tilted Weight Distribution Balanced Ankle/Foot Posture (L) Calcaneal Inversion,(R) Calcaneal Inversion Comments Posture Comments Dowagers hump, Very wide stance, ankles IV L>R. PT-OP-K Range of Motion Start: 10/07/21 17:16 Freq: Status: Active Protocol: Document 10/10/21 11:25 LRN (Rec: 10/10/21 12:40 LRN [id number]) Lumbar Spine Range of Motion Lumbar Spine Active Percentage Flexion 80 Rotation Left 50 Lateral Flexion Left 50 Lateral Flexion Right 90 ROM Limitations Soft Tissue Tightness,Pain Comments L LB/Sciatic Pain rotating left. Hip Goniometric Range of Motion Hip ROM Limitations Comments Pt LE mobility is WFL for sitting transfers and walking. PT-OP-M Strength Start: 10/07/21 17:16 Freq: Status: Active Protocol: Document 10/10/21 11:25 LRN (Rec: 10/10/21 12:40 LRN [id number]) Trunk Strength Trunk Manual Muscle Testing Extension 2- Poor- Comments Deferred further testing due to pt not able tolerate supine lying. Pt had difficulty breathing in supine and hip pain in sidelie. Hip Strength Hip Manual Muscle Testing Right Flexion (L2) 3- Fair- Comments Deferred further testing due to pt not able to tolerate other testing positions. Left Flexion (L2) 3- Fair- Comments Deferred further testing due to pt not able to tolerate other testing positions. Knee Strength Knee Manual Muscle Testing Right Flexion (S2) 5 Normal Extension (L3) 5 Normal Left Flexion (S2) 5 Normal Extension (L3) 4- Good- Ankle/Foot Strength Ankle and Foot Manual Muscle Testing Right Dorsiflexion (L4) 5 Normal Plantarflexion (S1) 3+ Fair+ Inversion 5 Normal Eversion (S1) 5 Normal Left Dorsiflexion (L4) 5 Normal Plantarflexion (S1) 3+ Fair+ Inversion 3 Fair Eversion (S1) 5 Normal PT-OP-Q Treatments Start: 10/07/21 17:16 Freq: Status: Active Protocol: Document 03/28/22 10:39 LRN (Rec: 03/28/22 11:20 LRN [id number]) Cardio Equipment Recumbent Stepper (Sci-Fit) Duration (Minutes) 15 Resistance 2 Seat Position 11 Therapeutic Exercises Sitting Exercises Trunk Rot Sitting Exercise Name Verbal review Comments Issued Lev 2 TBand for HEP Trunk flex strengthening Sitting Exercise Name Verbal Review Piriformis stretch Sitting Exercise Name Piriformis stretch, L>R Side bilateral Equipment Used black plinth Reps/Minutes 30 x2 Comments modified Piriformis stretch Hamstring stretch Sitting Exercise Name Leg extended on plinth, hip hinge fwd, f/b active stretch Side bilateral Resistance AROM Equipment Used black plinth - hip hinge Reps/Minutes 30 x2 Comments modified HS hip hinge- cued not hip ER Sit<>Stand Sitting Exercise Name Sit<>Stand- crossed arms over chest Equipment Used Eval chair. Reps/Minutes 14x in 30 Self-Care/Home Management Treatment Education Patient Education Home Exercise Program Activities Self-Care/Home Management Activities Verbal review of HEP and home endurance walking goal. PT-OP-T Assessment and Plan Start: 10/07/21 17:16 Freq: Status: Active Protocol: Document 03/28/22 10:39 LRN (Rec: 03/28/22 11:20 LRN [id number]) Physical Therapy Assessment Goals Four Impairment Decreased function Impairment LEFS score of 17/80 (60-79% impaired, score 17-31), IRMA of 35/50 (60-79% impaired, score 60-79/100) STG Duration 12/09/21 Fire Extinguisher Repairer Inspector Goal (LTG) Improve function per LEFS or IRMA score to 40-59% impaired. (01/03/22: LEFS score 19/80; IRMA score 33/50; slight improvement) (02/13/22: IRMA score is 31/50 = 62/100, 60-79% impaired) (: LEFS score is 21/80 = 60-7o% impaired), IRMA score is 58/100 = 40-59% impaired) LTG Duration 02/07/22 (03/28/22: MET GOAL with IRMA functional score) Three Impairment Decreased endurance Impairment 30 sec sit to stand - 10x ( norm for ages 60-64 is 12-17x) Short Term Goal (STG) 30 sec sit<>stand test 12x or greater. (11/07/21: 8x) (12/19/21: 7x; 12x in 48 secs, after sit rest able to do 5x more). (01/03/22: 7x & 11x in 30 secs ) (03/13/22: 13x in 30 secs) STG Duration 12/09/21 (: GOAL MET) Penitentiary Goal (LTG) Improve endurance per Sit to Stand Test - 17x or greater. (12/19/21: 12x > sit rest >7x) . (01/03/22: 4 bouts: 7x & 11x in 30 secs, 13x x 2 with long rests btn bouts of 35-41 secs; over 30-41 secs). (03/28/22: 14x) LTG Duration 02/07/22 (03/28/22: Improved, NOT MET GOAL) Two Impairment Decreased tolerance to exercise Short Term Goal (STG) Pt will be able to tolerate 10 ' minutes on Scifit exer. (11/07/21: Pt tolerated on Sci fit 8' to start and 2' to end ). (12/19/21: 9' on Scifit to start). STG Duration 12/09/21 (03/13/22: MET GOAL) Fire Extinguisher Repairer Inspector Goal (LTG) Pt will be able to tolerate 15 ' minutes on Scifit exer. LTG Duration 02/07/22 (03/28/22: MET GOAL) One Impairment Lacks appropriate self care HEP Short Term Goal (STG) Pt will be independent on a walking program minimally 2x/ week. (10/25/21: I/S pt to start walking program) (12/19/21: Walking 3-4x/week) STG Duration 12/09/21 (12/19/21: MET GOAL) Penitentiary Goal (LTG) Pt will be on an independent HEP of 1/2 hr workouts. (03/28/22: Workouts are 15-20 minutes). LTG Duration 02/07/22 (03/28/22: GOAL NOT MET) Assessment Summary Assessment Pt has met her goals except the LTG for endurance. She is up to 15-20 minutes of exercise at home, that she notes is much more than her 10 mins of exercise initially. She is continuing to work on weight loss but is being hindered by foot pain from her reported Terrence's Neuroma. Her function has improved per IRMA score, but shows no change with LE functional scoring. Pt is independent with a HEP and will continue to work on exercises on her own. Pt is being discharged to her HEP. Physical Therapy Plan Discharge Physical Therapy Discharge Comments Pt choosing to discharge due to max insurance visit limit reached. Thank you or your referral.
== END 2022-03-30 11:37 | disposition home or self-care (01) ==
LOC: PHYS 10:30
PROVIDERS: Family Provider Family Medicine; PCP Family Medicine; Referring Provider Family Medicine; Visit Provider Family Medicine
DX: M54.9 Dorsalgia, unspecified (principal); G89.29 Other chronic pain; M79.7 Fibromyalgia; M54.30 Sciatica, unspecified side; M25.569 Pain in unspecified knee
CPT/HCPCS: 97110; 97162

== ENCOUNTER → 2022-09-29 08:03 | Outpatient (CLI) | payer OTHER, MEDICAID, SELFPAY ==
[2022-09-29 08:58] LABS: Add Manual Diff / Slide Review NO; Basophils Absolute Auto 0 /uL (0-100); Basophils Percent Auto 0.5 % (0-2); Eosinophils Absolute Auto 200 /uL (0-450); Eosinophils Percent Auto 2.5 % (2-4); Hematocrit 43.5 % (36-46); Hemoglobin 14.3 g/dL (12.0-16.0); Lymphocytes Absolute Auto 2300 /uL (1100-4500); Mean Corpuscular HGB Conc 32.9 % (30-36); Mean Corpuscular Hemoglobin 30.3 PG (26-34); Monocytes Absolute Auto 500 /uL (0-900); Monocytes Percent Auto 5.9 % (3-14); Neutrophils Absolute Auto 5300 /uL (1500-7000); Neutrophils Percent Auto 63.1 % (50-75); Platelet Count 292 X10^3/uL (150-400); Red Blood Cell Count 4.73 X10^6/uL (4.0-5.2); Red Cell Distribution Width 13.9 % (11.6-14.8); White Blood Cell Count 8.3 X10^3/uL (4.5-11.0)
[2022-09-29 09:44] LABS: Alanine Aminotransferase 39 IU/L (<35); Albumin 4.1 g/dL (3.5-5.0); Albumin Globulin Ratio 1.6 (1.0-2.8); Alkaline Phosphatase 57 U/L (38-126); Aspartate Aminotransferase 24 IU/L (14-36); Bilirubin Total 0.7 mg/dL (0.2-1.3); Blood Urea Nitrogen 18 mg/dL (7-17); Calcium 9.1 mg/dL (8.4-10.2); Carbon Dioxide 28 mmol/L (22-32); Chloride 101 mmol/L (98-107); Cholesterol 142 mg/dL (140-199); Estimated Glomerular Filt Rate > 60 mL/min (>60); Globulin 2.6 g/dL (1.7-4.1); Glucose 128 mg/dL (70-100); HDL Cholesterol 48 mg/dL (40-60); HEMOLYSIS < 15 (0-50); LDL Cholesterol Calculated 69 mg/dL (<100); Potassium 4.7 mmol/L (3.4-5.1); Sodium 138 mmol/L (137-145); Total Protein 6.7 g/dL (6.3-8.2); Triglycerides 124 mg/dL (35-150)
[2022-09-29 10:04] LABS: TSH w/ Reflex to FT4 2.52 uIU/mL (0.47-4.68)
[2022-09-30 06:09] LABS: Labcorp Hemoglobin (Hb) A1c 6.2 % (4.8-5.6)
== END ==
PROVIDERS: Family Provider Family Medicine; PCP Family Medicine; Referring Provider Family Medicine; Visit Provider Family Medicine
DX: E11.65 Type 2 diabetes mellitus with hyperglycemia (principal); Z13.29 Encounter for screening for other suspected endocrine disorder; F41.9 Anxiety disorder, unspecified; I10 Essential (primary) hypertension
CPT/HCPCS: 36415; 80053; 80061; 83036; 84443; 85025

== ENCOUNTER → 2023-03-02 07:12 | Outpatient (CLI) | payer OTHER, MEDICAID, SELFPAY ==
[2023-03-02 08:43] LABS: Add Manual Diff / Slide Review NO; Basophils Absolute Auto 0 /uL (0-100); Basophils Percent Auto 0.6 % (0-2); Eosinophils Absolute Auto 200 /uL (0-450); Eosinophils Percent Auto 2.3 % (2-4); Hematocrit 43.4 % (36-46); Hemoglobin 14.5 g/dL (12.0-16.0); Lymphocytes Absolute Auto 2800 /uL (1100-4500); Lymphocytes Percent Auto 32.6 % (25-40); Mean Corpuscular HGB Conc 33.5 % (30-36); Mean Corpuscular Hemoglobin 30.9 PG (26-34); Mean Corpuscular Volume 92.2 fL (80-100); Monocytes Absolute Auto 700 /uL (0-900); Monocytes Percent Auto 7.8 % (3-14); Neutrophils Absolute Auto 4800 /uL (1500-7000); Neutrophils Percent Auto 56.7 % (50-75); Platelet Count 272 X10^3/uL (150-400); White Blood Cell Count 8.4 X10^3/uL (4.5-11.0)
[2023-03-02 08:48] LABS: Hemoglobin A1C% w Est Avg Glu 6.3 % (4.0-6.0)
[2023-03-02 09:39] LABS: Alanine Aminotransferase 31 IU/L (<35); Albumin 4.2 g/dL (3.5-5.0); Albumin Globulin Ratio 1.6 (1.0-2.8); Alkaline Phosphatase 58 U/L (38-126); Aspartate Aminotransferase 23 IU/L (14-36); BUN Creatinine Ratio 27.5 (6-22); Bilirubin Total 0.8 mg/dL (0.2-1.3); Blood Urea Nitrogen 22 mg/dL (7-17); Calcium 8.9 mg/dL (8.4-10.2); Carbon Dioxide 31 mmol/L (22-32); Chloride 101 mmol/L (98-107); Cholesterol 136 mg/dL (140-199); Estimated Glomerular Filt Rate > 60 mL/min (>60); Globulin 2.7 g/dL (1.7-4.1); Glucose 107 mg/dL (70-100); HDL Cholesterol 56 mg/dL (40-60); HEMOLYSIS < 15 (0-50); LDL Cholesterol Calculated 55 mg/dL (<100); Potassium 4.7 mmol/L (3.4-5.1); Sodium 137 mmol/L (137-145); Total Protein 6.9 g/dL (6.3-8.2); Triglycerides 127 mg/dL (35-150)
[2023-03-02 10:42] LABS: Creatinine Urine Random 80.3 mg/dL
[2023-03-02 10:46] LABS: Microalbumin Urine Random < 0.6 mg/dL (0-1.6)
== END ==
PROVIDERS: Family Provider Family Medicine; PCP Family Medicine; Referring Provider Family Medicine; Visit Provider Family Medicine
DX: E11.65 Type 2 diabetes mellitus with hyperglycemia (principal); E66.01 Morbid (severe) obesity due to excess calories; I10 Essential (primary) hypertension; Z68.41 Body mass index [BMI] 40.0-44.9, adult
CPT/HCPCS: 36415; 80053; 80061; 82043; 82570; 83036; 85025

== ENCOUNTER → 2023-03-06 08:50 | Outpatient (CLI) | payer OTHER, MEDICAID, SELFPAY ==
--- NOTE | 2023-03-06 08:51 | DI.RAD.S_ITS ---
PROCEDURE: XR LUMBAR SPINE 2-3V INDICATIONS: eval SI joint/chronic back pain TECHNIQUE: 3 views of the lumbar spine were acquired. COMPARISON: [facility], JANELLE, XR LUMBAR SPINE MIN 4V, 01/05/2021, 10:59. [facility], JANELLE, L-SPINE 2-3 VIEWS, 01/31/2008, 10:56. FINDINGS: Bones: 5 [id number] vertebrae are present. There is straightening of normal lumbar lordosis. No spondylolisthesis. Multilevel degenerative changes of the lumbar spine with mild multilevel disc height loss with degenerative endplate changes and marginal spurring. This is most pronounced at L5-S1. Multilevel facet arthropathy, most pronounced at L5-S1. Degenerative changes of the sacroiliac joints with marginal spurring. No vertebral body compression fractures. No suspicious bony lesions. Soft tissues: Overlying bowel gas pattern is normal. No suspicious soft tissue calcifications. IMPRESSION: Multilevel degenerative changes of the lumbar spine and sacroiliac joints. Dictated by: Frankie Cordon M.D. on 03/06/2023 at 9:42 Approved by: Frankie Cordon M.D. on 03/06/2023 at 9:44
== END ==
PROVIDERS: Family Provider Family Medicine; PCP Family Medicine; Referring Provider Family Medicine; Visit Provider Family Medicine
DX: M47.816 Spondylosis without myelopathy or radiculopathy, lumbar region (principal); M47.817 Spondylosis without myelopathy or radiculopathy, lumbosacral region; M47.818 Spondylosis without myelopathy or radiculopathy, sacral and sacrococcygeal region; M54.9 Dorsalgia, unspecified; G89.29 Other chronic pain
CPT/HCPCS: 72100

== ENCOUNTER → 2023-03-23 16:34 | Outpatient (CLI) | payer OTHER, MEDICAID, SELFPAY ==
--- NOTE | 2023-03-23 16:36 | DI.RAD.S_ITS ---
PROCEDURE: XR HIP W PEL IF DONE RT 2V INDICATIONS: hip pain TECHNIQUE: AP pelvis with lateral view(s) of the right hip(s). COMPARISON: [facility], CR, XR LUMBAR SPINE 2-3V, 03/06/2023, 9:03. CT, CT ABDOMEN WO CON, 01/19/2020, 10:23. FINDINGS: Bones: No fractures or dislocations. Pelvic ring appears intact. No suspicious bony lesions. Mild symmetric axial hip joint space narrowing with mild periarticular osteophyte formation. Degenerative disc and facet disease involves the inferior lumbar spine. Soft tissues: The visualized bowel gas pattern is normal. No suspicious soft tissue calcifications. IMPRESSION: Mild symmetric hip joint degeneration. If pain persist with conservative management, consider cross-sectional imaging such as CT or MRI. Dictated by: Jarad Lee [facility] Interpreted: Radu Mcgrath MD on 03/23/2023 at 16:51 Transcribed by: KACY on 03/23/2023 at 16:51 Approved by: Radu Mcgrath M.D. on 03/24/2023 at 8:23
== END ==
PROVIDERS: Family Provider Family Medicine; PCP Family Medicine; Referring Provider Family Medicine; Visit Provider Family Medicine
DX: M25.551 Pain in right hip (principal); M16.11 Unilateral primary osteoarthritis, right hip
CPT/HCPCS: 73502

== ENCOUNTER → 2023-09-27 07:42 | Outpatient (CLI) | payer OTHER, MEDICAID, SELFPAY ==
[2023-09-27 08:45] LABS: Hemoglobin A1C% w Est Avg Glu 7.3 % (4.0-6.0)
[2023-09-27 08:58] LABS: Alanine Aminotransferase 34 IU/L (<35); Albumin 4.1 g/dL (3.5-5.0); Albumin Globulin Ratio 1.5 (1.0-2.8); Alkaline Phosphatase 70 U/L (38-126); Aspartate Aminotransferase 23 IU/L (14-36); BUN Creatinine Ratio 27.8 (6-22); Bilirubin Total 0.8 mg/dL (0.2-1.3); Blood Urea Nitrogen 22 mg/dL (7-17); Calcium 9.3 mg/dL (8.4-10.2); Carbon Dioxide 33 mmol/L (22-32); Chloride 102 mmol/L (98-107); Estimated Glomerular Filt Rate > 60 mL/min (>60); Globulin 2.8 g/dL (1.7-4.1); Glucose 146 mg/dL (70-100); HEMOLYSIS < 15 (0-50); Potassium 4.6 mmol/L (3.4-5.1); Sodium 138 mmol/L (137-145); Total Protein 6.9 g/dL (6.3-8.2)
[2023-09-27 09:15] LABS: Creatinine Urine Random 83.8 mg/dL
[2023-09-27 09:27] LABS: Microalbumin Urine Random < 0.6 mg/dL (0-1.6)
== END ==
PROVIDERS: Family Provider Family Medicine; PCP Family Medicine; Referring Provider Family Medicine; Visit Provider Family Medicine
DX: E11.65 Type 2 diabetes mellitus with hyperglycemia (principal); I10 Essential (primary) hypertension
CPT/HCPCS: 36415; 80053; 82043; 82570; 83036; 99213

== ENCOUNTER → 2023-10-17 08:40 | Outpatient (CLI) | payer OTHER, MEDICAID, SELFPAY ==
--- NOTE | 2023-10-17 08:42 | DI.US.S_ITS ---
PROCEDURE: US BREAST LT LIMITED COMPARISON: None. INDICATIONS: lump on left nipple FINDINGS: IMPRESSION: Dictated by: Juju Clayton M.D. on 10/17/2023 at 10:07 Approved by: Juju Clayton M.D. on 10/17/2023 at 10:07
--- NOTE | 2023-10-17 08:42 | DI.MG.S_ITS ---
BILATERAL DIGITAL DIAGNOSTIC MAMMOGRAM 3D/2D: 10/17/2023 CLINICAL: Nipple discharge, left breast, not bloody. Resolved. Comparison is made to exams dated: 05/21/2012 mammogram - [facility], 02/05/2018 mammogram - [facility], and 09/23/2008 mammogram - [facility]. There are scattered areas of fibroglandular density in both breasts (category b / 25%-50% glandular tissue). There are benign vascular calcifications in both breasts. No significant masses, calcifications, or other findings are seen in either breast. IMPRESSION: INCOMPLETE: NEEDS ADDITIONAL IMAGING EVALUATION There is no mammographic abnormality seen in the left breast to correspond with the now-resolved area of clinical concern in the sub-areolar depth, however, targeted ultrasound of the left breast is recommended and will be performed immediately following this exam. Based on the Tyrer Cuzick model (a risk assessment model) the patient's lifetime risk is 5.9% and her 10 year risk is 1.9%. According to the ACR, ACS, and NCCN guidelines, an annual breast MRI exam along with mammogram is recommended if the patient's lifetime risk is 20% or greater. This exam was interpreted at Station ID: [id number]. NOTE: For mammograms, a report in lay terms will be sent to the patient. Approximately 15% of breast malignancies will not be visualized mammographically. In the management of a palpable breast mass, a negative mammogram must not discourage biopsy of a clinically suspicious lesion. Electronically Signed By: Juju Clayton M.D. lk/:10/17/2023 09:27:09 ACR BI-RADS Category 0: Incomplete [id number]
--- NOTE | 2023-10-17 09:31 | DI.US.S_ITS ---
Patient Name: ITZEL ARAMBULA date: 1965 Sex: F Attending Physician: Ilya Indications: Date: 10/17/2023 09:45 At the request of: MICHELLE LINARES Procedure: US breast LT limited LIMITED ULTRASOUND OF LEFT BREAST: 10/17/2023 CLINICAL: Nipple discharge, left breast, not bloody. Resolved. Comparison is made to exams dated: 10/17/2023 mammogram - [facility], 02/11/2018 ultrasound, 02/11/2018 mammogram, and 02/05/2018 mammogram - [facility]. Real-time ultrasound of the left breast retroareolar was performed on the areas of interest. Wiley scale images of the real-time examination were reviewed. IMPRESSION: NEGATIVE There is no sonographic evidence of malignancy. There is no mammographic or sonographic abnormality seen in the left breast to correspond with the now resolved area of clinical concern at the left nipple, however, clinical followup is recommended. Additionally, please note thst Paget's disease of the breast cannot be excluded by imaging. If there is clinical concern for Paget's disease, surgical consultation is recommended. Return to annual mammogram screening schedule is recommended. This exam was interpreted at Station ID: [id number]. Electronically Signed By: Juju Clayton M.D. lk/:10/17/2023 09:45:15 letter sent: Clinical Evaluation Continued Report - Page 2 of 2 Patient Name: ITZEL ARAMBULA date: 1965 Sex: F Attending Physician: Ilya Indications: Date: 10/17/2023 09:45 At the request of: MICHELLE LINARES Procedure: US breast LT limited Ultrasound BI-RADS: 1 Negative
== END ==
PROVIDERS: Family Provider Family Medicine; PCP Family Medicine; Referring Provider Family Medicine; Visit Provider Family Medicine
DX: R92.2 Inconclusive mammogram (principal); R92.323 Mammographic fibroglandular density, bilateral breasts; N63.0 Unspecified lump in unspecified breast
CPT/HCPCS: 76642; 77066; G0279

== ENCOUNTER → 2023-11-13 15:11 | Outpatient (CLI) | payer OTHER, MEDICAID, SELFPAY ==
--- NOTE | 2023-11-13 15:12 | DI.RAD.S_ITS ---
PROCEDURE: XR RIBS RT MIN 3V W CXR 1V INDICATIONS: eval Right side pain TECHNIQUE: 5 views of the ribs were acquired, along with a single view chest. COMPARISON: None. FINDINGS: Surgical changes and devices: None. Bones and chest wall: No fractures or dislocations. No suspicious bony lesions. Overlying soft tissues appear unremarkable. Lungs and pleura: No pleural effusions or pneumothorax. Lungs appear clear. Mediastinum: Mediastinal contours appear normal. Heart size is normal. IMPRESSION: No displaced right-sided rib fracture or pneumothorax. CT chest could be considered for further evaluation. Dictated by: Harjeet Castaneda M.D. on 11/14/2023 at 9:42 Approved by: Harjeet Castaneda M.D. on 11/14/2023 at 9:44
== END ==
PROVIDERS: Family Provider Family Medicine; PCP Family Medicine; Referring Provider Family Medicine; Visit Provider Family Medicine
DX: R07.81 Pleurodynia (principal); R07.89 Other chest pain
CPT/HCPCS: 71101

== ENCOUNTER → 2024-02-01 07:33 | Outpatient (CLI) | payer OTHER, MEDICAID, SELFPAY ==
[2024-02-01 08:02] LABS: Hemoglobin A1C% w Est Avg Glu 6.4 % (4.0-6.0)
[2024-02-01 08:22] LABS: Alanine Aminotransferase 27 IU/L (<35); Albumin 4.3 g/dL (3.5-5.0); Albumin Globulin Ratio 1.7 (1.0-2.8); Alkaline Phosphatase 62 U/L (38-126); Aspartate Aminotransferase 22 IU/L (14-36); BUN Creatinine Ratio 31.4 (6-22); Bilirubin Total 0.8 mg/dL (0.2-1.3); Blood Urea Nitrogen 27 mg/dL (7-17); Calcium 9.1 mg/dL (8.4-10.2); Carbon Dioxide 30 mmol/L (22-32); Chloride 103 mmol/L (98-107); Estimated Glomerular Filt Rate > 60 mL/min (>60); Globulin 2.5 g/dL (1.7-4.1); Glucose 119 mg/dL (70-100); HEMOLYSIS < 15 (0-50); Potassium 4.3 mmol/L (3.4-5.1); Sodium 139 mmol/L (137-145); Total Protein 6.8 g/dL (6.3-8.2)
== END ==
PROVIDERS: Family Provider Family Medicine; PCP Family Medicine; Referring Provider Family Medicine; Visit Provider Family Medicine
DX: E11.65 Type 2 diabetes mellitus with hyperglycemia (principal); I10 Essential (primary) hypertension
CPT/HCPCS: 36415; 80053; 83036

== ENCOUNTER 2024-03-05 09:00 | Outpatient (RCR) | payer OTHER, MEDICAID, SELFPAY ==
--- NOTE | 2023-11-07 16:14 | PT.OIE ---
Current Diagnoses Type 2 diabetes mellitus without complications (11/07/23) Contracture of muscle, right lower leg (11/07/23) Contracture of muscle, left lower leg (11/07/23) Muscle weakness (generalized) (11/07/23) Metatarsalgia, right foot (11/07/23) Metatarsalgia, left foot (11/07/23) Difficulty in walking, not elsewhere classified (11/07/23) Abnormal posture (11/07/23) Past Medical History (Last Reviewed 09/27/23 @ 12:21 by Clint Bentley MD) Acne Anxiety (~1995) Asthma Chronic back pain (~2013) Chronic cough (~2013) Closed fibular fracture COPD (chronic obstructive pulmonary disease) (~2009) Cystocele Depression (~1995) Diabetes (~2017) Diabetic nephropathy Fibromyalgia (~1995) Foot pain GERD (gastroesophageal reflux disease) (~1999) Headache HTN (hypertension) Hyperglycemia Insomnia Leg edema Lumbar radiculopathy Lumbar spondylosis Migraines Morbid obesity Diez's neuroma Myofascial pain Osteoporosis (~1996) Posterior vaginal wall prolapse (~2013) Rectocele Serotonin syndrome SI (sacroiliac) joint dysfunction Tobacco use disorder Tooth pain Type 2 diabetes mellitus Type 2 diabetes mellitus with hyperglycemia Umbilical hernia Uterine prolapse Vision disorder Past Surgical History (Last Reviewed 09/27/23 @ 12:21 by Clint Bentley MD) Anesthesia History of bunionectomy (~1996) History of bunionectomy (~1981) History of reconstructive repair of rectocele (07/22/19) History of shoulder surgery (~2009) History of tubal ligation (~1992) Shoulder bursitis (~2010) Status post hysteroscopic myomectomy Visit Care Team Role Provider Type Gianluca Caraballo DO Family Provider Physician Primary Care Provider Specialty: Family Practice Address: [address] [place] [address], [id number] Email: [email or web address] Attending Provider Non-Staff Referring Provider Specialty: Podiatry Address: [address] [place] [address], [address] Email: Physical Therapy Initial Evaluation PT-OP-A Visit Information Start: 10/18/23 17:48 Freq: Status: Active Protocol: Document 11/07/23 11:26 [facility] (Rec: 11/07/23 12: [facility] [id number]) Out-Patient Physical Therapy Visit Information Visit Information Visit Type Initial Evaluation Visit Note insurance limited by 24 units Visit Start Time 11:21 Visit Stop Time 12:00 Visit Number 1 Number of REVENUE [employer] Visits 0 PT-OP-B Current Condition Start: 10/18/23 17:48 Freq: Status: Active Protocol: Document 11/07/23 11:26 [facility] (Rec: 11/07/23 12:26 [facility] [id number]) Current Condition History of Current Condition Onset Date mar 2023 Current Complaints B heel pain & rollins/ankle pain History of Current Condition Pt is having R>L heel pain. 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 She got a pair of shoes in mar from [facility] shoe [facility] and the back of the heel was so rigid and came up high . She wore them for 1.5 months and thought they needed to break them in. She was walking w/1-2 cane because the pain was into the front of her ankle and into her R Knee. She uses the cane now mostly for outdoor walking like up/down curbs. Her old shoes are more comfortable but 3 years old and she know she needs new shoes. She has arch supports and heel lifts from [employer] . She wants to inc walking to lose weight and is considering bariatric surgery. She has an abdominal hernia, LBP and cetocele and rectocele and 2 other prolapses. Got her prolapses fixed in Jun 2019. She cannot get hernia fixed unless it is fatal or loses wt . [place] feels like she is always in pain. pt feels like legs are so heavy. She cannot walk on the grass. She started walking right after prolapse surgery and stayed on paved trail. When she tried gravel/wood paths, it was difficult. Stopped walking d/t pandemic and trail got too busy. She got a little bike (ergo) and can pedal only a few min before back pain. Does stretch her calves. Balance has gotten worse since heel pain. Has had B bunionectomies (when 16 and 31 yo). Pt fx fibula in 2020 L. She has had mult sprains on L ankle. Does have some numbness in toes and heel. She rolls her foot on a bouncy ball but can't d/t knee pain Treatment Goals Patient/Caregiver Goals improve ankle motion, be able to walk w/o cane and walk longer PT-OP-C Subjective Start: 10/18/23 17:48 Freq: Status: Active Protocol: Document 11/07/23 11:26 [facility] (Rec: 11/07/23 12:26 [facility] [id number]) Patient Questionnaires Foot & Ankle Ability Measure- ADL and Sports FAAM-ADL Score 2684 Lower Extremity Functional Scale LEFS Score 1380 OP-PT Pain Assessment Location B foot pain Pain Location Details R>L heel/achilles , ant ankle, rollins & knees Frequency Constant Pain Aggravating Factors Activity,Standing,Walking, Stair Climbing Pain Alleviating Factors Inactivity Other Pain Alleviating Factors roll out w/ball, stretching PT-OP-F Manual Assessment Start: 10/18/23 17:48 Freq: Status: Active Protocol: Document 11/07/23 11:26 [facility] (Rec: 11/07/23 12:26 [facility] [id number]) Manual Assessments Joint Mobility Assessment Joint Mobility Assessment Varus forefoot and midfoot; dec contact to big toe PT-OP-G Mobility & Gait Start: 10/18/23 17:48 Freq: Status: Active Protocol: Document 11/07/23 11:26 [facility] (Rec: 11/07/23 12:26 [facility] [id number]) OP Gait Assessment Comments Gait Comments pt has inc pelvic rot, inc supination, WBOS, lat lean, dec push off B PT-OP-K Range of Motion Start: 10/18/23 17:48 Freq: Status: Active Protocol: Document 11/07/23 11:26 [facility] (Rec: 11/07/23 12:26 [facility] [id number]) Ankle and Foot Goniometric Range of Motion Ankle and Foot Right Active Dorsiflexion with Knee Flexed 0 Dorsiflexion with Knee Extended 4 Plantarflexion 59 Inversion 44 Eversion 20 Comments lacking DF to neutral in knee ext position Left Active Dorsiflexion with Knee Flexed 3 Dorsiflexion with Knee Extended 2 Plantarflexion 50 Inversion 33 Eversion 21 Comments cramping w/PF/DF lacking DF to neutral in knee ext position PT-OP-L Special Tests Start: 10/18/23 17:48 Freq: Status: Active Protocol: Document 11/07/23 11:26 [facility] (Rec: 11/07/23 12:26 [facility] [id number]) Special Tests Lumbar Spine Special Tests Slump Test Results neg b PT-OP-M Strength Start: 10/18/23 17:48 Freq: Status: Active Protocol: Document 11/07/23 11:26 [facility] (Rec: 11/07/23 12:26 [facility] [id number]) Hip Strength Hip Manual Muscle Testing Right Flexion (L2) 3 Fair External Rotation 3+ Fair+ Internal Rotation 3+ Fair+ Comments pain in knee w/rot Left Flexion (L2) 3 Fair External Rotation 3+ Fair+ Internal Rotation 3+ Fair+ Comments pain hip rot Knee Strength Knee Manual Muscle Testing Right Flexion (S2) 3+ Fair+ Extension (L3) 3+ Fair+ Comments pain in knee Left Flexion (S2) 4+ Good+ Extension (L3) 5 Normal Ankle/Foot Strength Ankle and Foot Manual Muscle Testing Right Dorsiflexion (L4) 3+ Fair+ Plantarflexion (S1) 3+ Fair+ Inversion 3+ Fair+ Eversion (S1) 3+ Fair+ Comments pain Left Dorsiflexion (L4) 4 Good Plantarflexion (S1) 5 Normal Inversion 4 Good Eversion (S1) 4 Good Comments PF tested seated B Toe Strength Toe Manual Muscle Testing Right 2nd Toe Flexion 3+ Fair+ Extension 4 Good Right Great Toe Flexion 3+ Fair+ Extension 4 Good Left 2nd Toe Flexion 4+ Good+ Extension 3 Fair Left Great Toe Flexion 3 Fair Extension 4+ Good+ PT-OP-T Assessment and Plan Start: 10/18/23 17:48 Freq: Status: Active Protocol: Document 11/07/23 11:26 [facility] (Rec: 11/07/23 12:26 [facility] [id number]) Physical Therapy Assessment Rehab Potential Rehabilitation Potential Good Impairments Impairments Activity Tolerance,Balance, Edema,Functional Activities, Functional Mobility,Gait,Pain, Posture,ROM,Sensation,Soft Tissue Mobility,Strength, Transfers Other Concerns Barriers to Rehabilitation pt has a lot of appts and mult comorbities. Pt has limitation of visits by insurance Goals strength Short Term Goal (STG) Pt will be indep w/HEP STG Duration 12/22 Usp Goal (LTG) Pt will score at least 4+/5 for all BLE MMT in order to show improved strength and stability of LEs for improved tolerance for daily activities . LTG Duration 01/29 activties Short Term Goal (STG) Pt will feel comfortable and safe to amb in community w/o cane w/o pain in R knee or B ankles greater than 3/10 STG Duration 12/22 Usp Goal (LTG) Pt will be able to start walking program for strength and mobility and return to daily walks w/o inc R knee or B ankle pain greater than 1/10 LTG Duration 01/29 Four Impairment LEFS score of 13/80 Short Term Goal (STG) Pt will improve LEFS to at least 20/80 to show improved functional ability STG Duration 12/22 Usp Goal (LTG) Pt will improve LEFS to at least 35/80 to show improved functional ability LTG Duration 01/29 Three Impairment ROM Short Term Goal (STG) Pt will improve ankle ROM to at least neutral in knee ext position for DF STG Duration 12/22 Usp Goal (LTG) pt will have improved ankle DF to at least 5 deg in knee ext and 10 deg in knee flex position to allow for greater ease w/functional activities including gait and stairs. LTG Duration 01/29 Assessment Summary Assessment Pt presents w/R>L achilles pain along w/pain in R lower leg and knee since pain started in achilles after wearing different shoes in Mar . She has significantly dec RLE stance time and WBOS w/ gait w/lat leaning and requires use of cane since this inc pain last Mar. She is hoping to try to exercise to improve her pain and lose weight , but it is difficult d /t back and pain, B ankle pain , and R rollins/knee pain. She does have inc tension on achilles d/t tightness in calves which is likely contributing to her pain. She would benefit from skilled PT to dec pain in B heels and R knee and improve pt's functional capacity. Physical Therapy Plan Frequency and Duration Frequency of Treatment 2x/Week Duration of treatment (weeks) 12 Plan of Care Start Date 11/07/23 Plan of Care End Date 01/30/24 Therapeutic Interventions Therapeutic Interventions Balance Training,Gait Training ,Home Exercise Program,Joint Mobilizations,Manual Therapy, Neuromuscular Re-education, Orthotic/Prosthetic Management ,Patient/Caregiver Education, Self-Care/Home Management,Soft Tissue Mobilization,Taping, Therapeutic Activities, Therapeutic Exercises Modalities Cold Pack/Ice Massage,Electric Stimulation,Hot Packs, Infrared Therapy,Ultrasound Other Therapeutic Interventions be careful w/all modalities as pt has dec foot sensation so modalities only to areas sensation is checked first Next Visit Focus/Plan Next Note Type Treatment Note Next Visit Plan check sensation of foot/ achilles, see if pt can tolerate sit to stands/mini squats w/band, try isometrics or tband for ankle, standing calf stretch; consider taping for pain, STM to calves gently and ankle jt mobs R>L, knee mobilizations
--- NOTE | 2023-11-07 18:14 | PT.OPPOC ---
Physical, Occupational & Speech Therapy At [facility] Current Diagnoses Type 2 diabetes mellitus without complications (11/07/23) Contracture of muscle, right lower leg (11/07/23) Contracture of muscle, left lower leg (11/07/23) Muscle weakness (generalized) (11/07/23) Metatarsalgia, right foot (11/07/23) Metatarsalgia, left foot (11/07/23) Difficulty in walking, not elsewhere classified (11/07/23) Abnormal posture (11/07/23) Visit Care Team Role Provider Type Gianluca Caraballo DO Family Provider Physician Primary Care Provider Specialty: Family Practice Address: [address] [place] [address], [address] Email: [email or web address] Reinaldo Huerta DPM Attending Provider Non-Staff Referring Provider Specialty: Podiatry Address: [address] [place] [address], [address] Email: Plan Of Care PT-OP-T Assessment and Plan Start: 10/18/23 17:48 Freq: Status: Active Protocol: Document 11/07/23 11:26 [facility] (Rec: 11/07/23 12:26 [facility] [id number]) Physical Therapy Assessment Rehab Potential Rehabilitation Potential Good Impairments Impairments Activity Tolerance,Balance, Edema,Functional Activities, Functional Mobility,Gait,Pain, Posture,ROM,Sensation,Soft Tissue Mobility,Strength, Transfers Other Concerns Barriers to Rehabilitation pt has a lot of appts and mult comorbities. Pt has limitation of visits by insurance Goals strength Short Term Goal (STG) Pt will be indep w/HEP STG Duration 12/22 Detention Goal (LTG) Pt will score at least 4+/5 for all BLE MMT in order to show improved strength and stability of LEs for improved tolerance for daily activities . LTG Duration 8/7 activties Short Term Goal (STG) Pt will feel comfortable and safe to amb in community w/o cane w/o pain in R knee or B ankles greater than 3/10 STG Duration 12/22 Detention Goal (LTG) Pt will be able to start walking program for strength and mobility and return to daily walks w/o inc R knee or B ankle pain greater than 1/10 LTG Duration 01/29 Four Impairment LEFS score of 13/80 Short Term Goal (STG) Pt will improve LEFS to at least 20/80 to show improved functional ability STG Duration 12/22 Detention Goal (LTG) Pt will improve LEFS to at least 35/80 to show improved functional ability LTG Duration 01/29 Three Impairment ROM Short Term Goal (STG) Pt will improve ankle ROM to at least neutral in knee ext position for DF STG Duration 12/22 Detention Goal (LTG) pt will have improved ankle DF to at least 5 deg in knee ext and 10 deg in knee flex position to allow for greater ease w/functional activities including gait and stairs. LTG Duration 01/29 Assessment Summary Assessment Pt presents w/R>L achilles pain along w/pain in R lower leg and knee since pain started in achilles after wearing different shoes in Mar . She has significantly dec RLE stance time and WBOS w/ gait w/lat leaning and requires use of cane since this inc pain last Mar. She is hoping to try to exercise to improve her pain and lose weight , but it is difficult d /t back and pain, B ankle pain , and R rollins/knee pain. She does have inc tension on achilles d/t tightness in calves which is likely contributing to her pain. She would benefit from skilled PT to dec pain in B heels and R knee and improve pt's functional capacity. Physical Therapy Plan Frequency and Duration Frequency of Treatment 2x/Week Duration of treatment (weeks) 12 Plan of Care Start Date 11/07/23 Plan of Care End Date 01/30/24 Therapeutic Interventions Therapeutic Interventions Balance Training,Gait Training ,Home Exercise Program,Joint Mobilizations,Manual Therapy, Neuromuscular Re-education, Orthotic/Prosthetic Management ,Patient/Caregiver Education, Self-Care/Home Management,Soft Tissue Mobilization,Taping, Therapeutic Activities, Therapeutic Exercises Modalities Cold Pack/Ice Massage,Electric Stimulation,Hot Packs, Infrared Therapy,Ultrasound Other Therapeutic Interventions be careful w/all modalities as pt has dec foot sensation so modalities only to areas sensation is checked first Next Visit Focus/Plan Next Note Type Treatment Note Next Visit Plan check sensation of foot/ achilles, see if pt can tolerate sit to stands/mini squats w/band, try isometrics or tband for ankle, standing calf stretch; consider taping for pain, STM to calves gently and ankle jt mobs R>L, knee mobilizations Plan of Care Dates Plan of Care Start Date 11/07/23 Plan of Care End Date 01/30/24 Electronically Signed by: Jacki Jones, PT 11/08/23 [id number] If you are in agreement with this Plan of Care, please return a signed and dated copy. I have reviewed this Plan of Care and certify that the skilled therapy services above are required to meet the patient?s needs. Physician Signature Date Printed Name and Credentials Clinical Instructor Signature Printed Name and Credentials
--- NOTE | 2023-11-13 12:23 | PT.OTN ---
Current Diagnoses Type 2 diabetes mellitus without complications (11/13/23) Contracture of muscle, right lower leg (11/13/23) Contracture of muscle, left lower leg (11/13/23) Muscle weakness (generalized) (11/13/23) Metatarsalgia, right foot (11/13/23) Metatarsalgia, left foot (11/13/23) Difficulty in walking, not elsewhere classified (11/13/23) Abnormal posture (11/13/23) Physical Therapy Treatment Note PT-OP-A Visit Information Start: 10/18/23 17:48 Freq: Status: Active Protocol: Document 11/13/23 11:19 [facility] (Rec: 11/13/23 12:23 [facility] [id number]) Out-Patient Physical Therapy Visit Information Visit Information Visit Type Treatment Note Visit Note insurance limited by 24 units Visit Start Time 11:22 Visit Stop Time 12:00 Visit Number 2 Number of CONSTRUCTION DIRECTOR Visits 0 PT-OP-B Current Condition Start: 10/18/23 17:48 Freq: Status: Active Protocol: Document 11/07/23 11:26 [facility] (Rec: 11/07/23 12:26 [facility] [id number]) Current Condition History of Current Condition Onset Date mar 2023 Current Complaints B heel pain & rollins/ankle pain History of Current Condition Pt is having R>L heel pain. 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 She got a pair of shoes in mar from [facility] and the back of the heel was so rigid and came up high . She wore them for 1.5 months and thought they needed to break them in. She was walking w/1-2 cane because the pain was into the front of her ankle and into her R Knee. She uses the cane now mostly for outdoor walking like up/down curbs. Her old shoes are more comfortable but 3 years old and she know she needs new shoes. She has arch supports and heel lifts from administrative office clerk . She wants to inc walking to lose weight and is considering bariatric surgery. She has an abdominal hernia, LBP and cetocele and rectocele and 2 other prolapses. Got her prolapses fixed in Jun 2019. She cannot get hernia fixed unless it is fatal or loses wt . Pt wants to get back to walking [place] the [place] feels like she is always in pain. pt feels like legs are so heavy. She cannot walk on the grass. She started walking right after prolapse surgery and stayed on paved trail. When she tried gravel/wood paths, it was difficult. Stopped walking d/t pandemic and trail got too busy. She got a little bike (ergo) and can pedal only a few min before back pain. Does stretch her calves. Balance has gotten worse since heel pain. Has had B bunionectomies (when 16 and 31 yo). Pt fx fibula in 2020 L. She has had mult sprains on L ankle. Does have some numbness in toes and heel. She rolls her foot on a bouncy ball but can't d/t knee pain Treatment Goals Patient/Caregiver Goals improve ankle motion, be able to walk w/o cane and walk longer PT-OP-C Subjective Start: 10/18/23 17:48 Freq: Status: Active Protocol: Document 11/13/23 11:19 [facility] (Rec: 11/13/23 12:23 [facility] [id number]) OP-PT Subjective Patient Comments Patient Comments pt reprots she has had R side pain in rib and has for a week so is seeing doctor. D/t this she hasn't been doing much for exercsies. Sees doctor today PT-OP-F Manual Assessment Start: 10/18/23 17:48 Freq: Status: Active Protocol: Document 11/07/23 11:26 [facility] (Rec: 11/07/23 12:26 [facility] [id number]) Manual Assessments Joint Mobility Assessment Joint Mobility Assessment Varus forefoot and midfoot; dec contact to big toe PT-OP-G Mobility & Gait Start: 10/18/23 17:48 Freq: Status: Active Protocol: Document 11/07/23 11:26 [facility] (Rec: 11/07/23 12:26 [facility] [id number]) OP Gait Assessment Comments Gait Comments pt has inc pelvic rot, inc supination, WBOS, lat lean, dec push off B PT-OP-K Range of Motion Start: 10/18/23 17:48 Freq: Status: Active Protocol: Document 11/07/23 11:26 [facility] (Rec: 11/07/23 12:26 [facility] [id number]) Ankle and Foot Goniometric Range of Motion Ankle and Foot Right Active Dorsiflexion with Knee Flexed 0 Dorsiflexion with Knee Extended 4 Plantarflexion 59 Inversion 44 Eversion 20 Comments lacking DF to neutral in knee ext position Left Active Dorsiflexion with Knee Flexed 3 Dorsiflexion with Knee Extended 2 Plantarflexion 50 Inversion 33 Eversion 21 Comments cramping w/PF/DF lacking DF to neutral in knee ext position PT-OP-L Special Tests Start: 10/18/23 17:48 Freq: Status: Active Protocol: Document 11/07/23 11:26 [facility] (Rec: 11/07/23 12:26 [facility] [id number]) Special Tests Lumbar Spine Special Tests Slump Test Results neg b PT-OP-M Strength Start: 10/18/23 17:48 Freq: Status: Active Protocol: Document 11/07/23 11:26 [facility] (Rec: 11/07/23 12:26 [facility] [id number]) Hip Strength Hip Manual Muscle Testing Right Flexion (L2) 3 Fair External Rotation 3+ Fair+ Internal Rotation 3+ Fair+ Comments pain in knee w/rot Left Flexion (L2) 3 Fair External Rotation 3+ Fair+ Internal Rotation 3+ Fair+ Comments pain hip rot Knee Strength Knee Manual Muscle Testing Right Flexion (S2) 3+ Fair+ Extension (L3) 3+ Fair+ Comments pain in knee Left Flexion (S2) 4+ Good+ Extension (L3) 5 Normal Ankle/Foot Strength Ankle and Foot Manual Muscle Testing Right Dorsiflexion (L4) 3+ Fair+ Plantarflexion (S1) 3+ Fair+ Inversion 3+ Fair+ Eversion (S1) 3+ Fair+ Comments pain Left Dorsiflexion (L4) 4 Good Plantarflexion (S1) 5 Normal Inversion 4 Good Eversion (S1) 4 Good Comments PF tested seated B Toe Strength Toe Manual Muscle Testing Right 2nd Toe Flexion 3+ Fair+ Extension 4 Good Right Great Toe Flexion 3+ Fair+ Extension 4 Good Left 2nd Toe Flexion 4+ Good+ Extension 3 Fair Left Great Toe Flexion 3 Fair Extension 4+ Good+ PT-OP-Q Treatments Start: 10/18/23 17:48 Freq: Status: Active Protocol: Document 11/13/23 11:19 [facility] (Rec: 11/13/23 12:23 [facility] [id number]) Therapeutic Exercises Sitting Exercises tbands Sitting Exercise Name 1. PF 2. DF 3. eversion Side bilateral Equipment Used 1. lvl 3 2&3. lvl 1 Reps/Minutes 12 ea Manual Therapy Treatment Soft Tissue Mobilization plantar fascia Body Location b Mobilization Type Rolling Intensity/Depth Superficial Body Position Sitting calf Body Location B gastroc/soleus; achilles Mobilization Type Myofascial Release,Rolling, Sustained Pressure Intensity/Depth sup to mod Body Position Sitting Joint Mobilizations ankle Comments 1. gentle calcaneal distraction b 2. gentle midfoot pronation PT-OP-T Assessment and Plan Start: 10/18/23 17:48 Freq: Status: Active Protocol: Document 11/13/23 11:19 [facility] (Rec: 11/13/23 12:23 [facility] [id number]) Physical Therapy Assessment Goals strength Short Term Goal (STG) Pt will be indep w/HEP STG Duration 12/22 Site Acquisition Manager Goal (LTG) Pt will score at least 4+/5 for all BLE MMT in order to show improved strength and stability of LEs for improved tolerance for daily activities . LTG Duration 01/29 activties Short Term Goal (STG) Pt will feel comfortable and safe to amb in community w/o cane w/o pain in R knee or B ankles greater than 3/10 STG Duration 12/22 Site Acquisition Manager Goal (LTG) Pt will be able to start walking program for strength and mobility and return to daily walks w/o inc R knee or B ankle pain greater than 1/10 LTG Duration 01/29 Four Impairment LEFS score of 13/80 Short Term Goal (STG) Pt will improve LEFS to at least 20/80 to show improved functional ability STG Duration 12/22 Halfway Goal (LTG) Pt will improve LEFS to at least 35/80 to show improved functional ability LTG Duration 01/29 Three Impairment ROM Short Term Goal (STG) Pt will improve ankle ROM to at least neutral in knee ext position for DF STG Duration 12/22 Halfway Goal (LTG) pt will have improved ankle DF to at least 5 deg in knee ext and 10 deg in knee flex position to allow for greater ease w/functional activities including gait and stairs. LTG Duration 01/29 Assessment Summary Assessment Pt did well with exercises w/ min c/o pain. She has significant weakness on R>L and had dec ease w/exercises on R. Dec exercise performed d /t significant R side ribcage pain today. Inc tightness of plantar fascia and calfR>L Physical Therapy Plan Frequency and Duration Frequency of Treatment 2x/Week Duration of treatment (weeks) 12 Plan of Care Start Date 11/07/23 Plan of Care End Date 01/30/24 Next Visit Focus/Plan Next Note Type Treatment Note Next Visit Plan avoid modalities d/t dec sensation, try taping, assess response to tband exercises, give standing calf stretch, STM to calves and foot gently, jt paulaes R>L
--- NOTE | 2023-12-11 14:07 | PT.OTN ---
Current Diagnoses Type 2 diabetes mellitus without complications (12/11/23) Contracture of muscle, right lower leg (12/11/23) Contracture of muscle, left lower leg (12/11/23) Muscle weakness (generalized) (12/11/23) Metatarsalgia, right foot (12/11/23) Metatarsalgia, left foot (12/11/23) Difficulty in walking, not elsewhere classified (12/11/23) Abnormal posture (12/11/23) Physical Therapy Treatment Note PT-OP-A Visit Information Start: 10/18/23 17:48 Freq: Status: Active Protocol: Document 12/11/23 11:23 [facility] (Rec: 12/11/23 14:06 [facility] [id number]) Out-Patient Physical Therapy Visit Information Visit Information Visit Type Treatment Note Visit Note insurance limited by 24 units Visit Start Time 11:21 Visit Stop Time 11:58 Visit Number 3 Number of DIRECTOR PATIENT Visits 0 PT-OP-B Current Condition Start: 10/18/23 17:48 Freq: Status: Active Protocol: Document 11/07/23 11:26 [facility] (Rec: 11/07/23 12:26 [facility] [id number]) Current Condition History of Current Condition Onset Date mar 2023 Current Complaints B heel pain & rollins/ankle pain History of Current Condition Pt is having R>L heel pain. 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 She got a pair of shoes in mar from [facility] shoe [facility] and the back of the heel was so rigid and came up high . She wore them for 1.5 months and thought they needed to break them in. She was walking w/1-2 cane because the pain was into the front of her ankle and into her R Knee. She uses the cane now mostly for outdoor walking like up/down curbs. Her old shoes are more comfortable but 3 years old and she know she needs new shoes. She has arch supports and heel lifts from snap attacher . She wants to inc walking to lose weight and is considering bariatric surgery. She has an abdominal hernia, LBP and cetocele and rectocele and 2 other prolapses. Got her prolapses fixed in Jun 2019. She cannot get hernia fixed unless it is fatal or loses wt . Pt wants to get back [place] walking [place] the [place]and feels like she is always in pain. pt feels like legs are so heavy. She cannot walk on the grass. She started walking right after prolapse surgery and stayed on paved trail. When she tried gravel/wood paths, it was difficult. Stopped walking d/t pandemic and trail got too busy. She got a little bike (ergo) and can pedal only a few min before back pain. Does stretch her calves. Balance has gotten worse since heel pain. Has had B bunionectomies (when 16 and 31 yo). Pt fx fibula in 2020 L. She has had mult sprains on L ankle. Does have some numbness in toes and heel. She rolls her foot on a bouncy ball but can't d/t knee pain Treatment Goals Patient/Caregiver Goals improve ankle motion, be able to walk w/o cane and walk longer PT-OP-C Subjective Start: 10/18/23 17:48 Freq: Status: Active Protocol: Document 12/11/23 11:23 [facility] (Rec[facility]23 [id number] Subjective Patient Comments Patient Comments Pt has been making sure she stretches her ankles mult times a day. She does bands occ and had stopped d/t Patient Reported Progress Same PT-OP-F Manual Assessment Start: 10/18/23 17:48 Freq: Status: Active Protocol: Document 11/07/23 11:26 [facility] (Rec: 11/07/23 12:26 [facility] [id number]) Manual Assessments Joint Mobility Assessment Joint Mobility Assessment Varus forefoot and midfoot; dec contact to big toe PT-OP-G Mobility & Gait Start: 10/18/23 17:48 Freq: Status: Active Protocol: Document 11/07/23 11:26 [facility] (Rec: 11/07/23 12:26 [facility] [id number]) OP Gait Assessment Comments Gait Comments pt has inc pelvic rot, inc supination, WBOS, lat lean, dec push off B PT-OP-K Range of Motion Start: 10/18/23 17:48 Freq: Status: Active Protocol: Document 11/07/23 11:26 [facility] (Rec: 11/07/23 12:26 [facility] [id number]) Ankle and Foot Goniometric Range of Motion Ankle and Foot Right Active Dorsiflexion with Knee Flexed 0 Dorsiflexion with Knee Extended 4 Plantarflexion 59 Inversion 44 Eversion 20 Comments lacking DF to neutral in knee ext position Left Active Dorsiflexion with Knee Flexed 3 Dorsiflexion with Knee Extended 2 Plantarflexion 50 Inversion 33 Eversion 21 Comments cramping w/PF/DF lacking DF to neutral in knee ext position PT-OP-L Special Tests Start: 10/18/23 17:48 Freq: Status: Active Protocol: Document 11/07/23 11:26 [facility] (Rec: 11/07/23 12:26 [facility] [id number]) Special Tests Lumbar Spine Special Tests Slump Test Results neg b PT-OP-M Strength Start: 10/18/23 17:48 Freq: Status: Active Protocol: Document 11/07/23 11:26 [facility] (Rec: 11/07/23 12:26 [facility] [id number]) Hip Strength Hip Manual Muscle Testing Right Flexion (L2) 3 Fair External Rotation 3+ Fair+ Internal Rotation 3+ Fair+ Comments pain in knee w/rot Left Flexion (L2) 3 Fair External Rotation 3+ Fair+ Internal Rotation 3+ Fair+ Comments pain hip rot Knee Strength Knee Manual Muscle Testing Right Flexion (S2) 3+ Fair+ Extension (L3) 3+ Fair+ Comments pain in knee Left Flexion (S2) 4+ Good+ Extension (L3) 5 Normal Ankle/Foot Strength Ankle and Foot Manual Muscle Testing Right Dorsiflexion (L4) 3+ Fair+ Plantarflexion (S1) 3+ Fair+ Inversion 3+ Fair+ Eversion (S1) 3+ Fair+ Comments pain Left Dorsiflexion (L4) 4 Good Plantarflexion (S1) 5 Normal Inversion 4 Good Eversion (S1) 4 Good Comments PF tested seated B Toe Strength Toe Manual Muscle Testing Right 2nd Toe Flexion 3+ Fair+ Extension 4 Good Right Great Toe Flexion 3+ Fair+ Extension 4 Good Left 2nd Toe Flexion 4+ Good+ Extension 3 Fair Left Great Toe Flexion 3 Fair Extension 4+ Good+ PT-OP-Q Treatments Start: 10/18/23 17:48 Freq: Status: Active Protocol: Document 12/11/23 11:23 [facility] (Rec: 12/11/23 14:06 [facility] [id number]) Therapeutic Exercises Sitting Exercises tbands Sitting Exercise Name 1. PF 2. DF 3. eversion Side bilateral Equipment Used 1. lvl 3 2&3. lvl 2 Reps/Minutes 10 ea Manual Therapy Treatment Soft Tissue Mobilization plantar fascia Body Location b Mobilization Type Rolling Intensity/Depth Superficial Body Position Sitting calf Body Location B gastroc/soleus; achilles Mobilization Type Myofascial Release,Rolling, Sustained Pressure Intensity/Depth sup to mod Body Position Sitting Joint Mobilizations ankle Grade II Comments 1. gentle calcaneal distraction and lat tilt R 2. fib sup R FM 3. R talus med and AP FM Taping foot/ankle Type of Tape Kinesio Tape Comments I strip for arch support around arch; I strip for dec achilles loading perpendicular across achilles PT-OP-T Assessment and Plan Start: 10/18/23 17:48 Freq: Status: Active Protocol: Document 12/11/23 11:23 [facility] (Rec: 12/11/23 14:06 [facility] [id number]) Physical Therapy Assessment Goals strength Short Term Goal (STG) Pt will be indep w/HEP STG Duration 12/22 Middle School Science Teacher Goal (LTG) Pt will score at least 4+/5 for all BLE MMT in order to show improved strength and stability of LEs for improved tolerance for daily activities . LTG Duration 01/29 activties Short Term Goal (STG) Pt will feel comfortable and safe to amb in community w/o cane w/o pain in R knee or B ankles greater than 3/10 STG Duration 12/22 Usp Goal (LTG) Pt will be able to start walking program for strength and mobility and return to daily walks w/o inc R knee or B ankle pain greater than 1/10 LTG Duration 01/29 Four Impairment LEFS score of 13/80 Short Term Goal (STG) Pt will improve LEFS to at least 20/80 to show improved functional ability STG Duration 12/22 Usp Goal (LTG) Pt will improve LEFS to at least 35/80 to show improved functional ability LTG Duration 01/29 Three Impairment ROM Short Term Goal (STG) Pt will improve ankle ROM to at least neutral in knee ext position for DF STG Duration 12/22 Usp Goal (LTG) pt will have improved ankle DF to at least 5 deg in knee ext and 10 deg in knee flex position to allow for greater ease w/functional activities including gait and stairs. LTG Duration 01/29 Assessment Summary Assessment pt did well with exercises w/ min cueing and was able to do inc resistance w/DF and inversion w/difficulty. Encouraged to follow doctors orders to find stockings that fit as swelling likely component of pain. Physical Therapy Plan Frequency and Duration Frequency of Treatment 2x/Week Duration of treatment (weeks) 12 Plan of Care Start Date 11/07/23 Plan of Care End Date 01/30/24 Next Visit Focus/Plan Next Note Type Treatment Note Next Visit Plan avoid modalities d/t dec sensation, assess taping response, give standing calf stretch, STM to calves and foot gently,jt paul R>L
--- NOTE | 2023-12-20 12:21 | PT.OTN ---
Current Diagnoses Type 2 diabetes mellitus without complications (12/20/23) Contracture of muscle, right lower leg (12/20/23) Contracture of muscle, left lower leg (12/20/23) Muscle weakness (generalized) (12/20/23) Metatarsalgia, right foot (12/20/23) Metatarsalgia, left foot (12/20/23) Difficulty in walking, not elsewhere classified (12/20/23) Abnormal posture (12/20/23) Physical Therapy Treatment Note PT-OP-A Visit Information Start: 10/18/23 17:48 Freq: Status: Active Protocol: Document 12/20/23 10:28 AB (Rec: 12/20/23 12:21 AB [id number]) Out-Patient Physical Therapy Visit Information Visit Information Visit Type Treatment Note Visit Note insurance limited by 24 units Visit Start Time 10:32 Visit Stop Time 11:22 Visit Number 4 Number of RETIREMENT SALES CONSULTANT Visits 1 PT-OP-B Current Condition Start: 10/18/23 17:48 Freq: Status: Active Protocol: Document 11/07/23 11:26 [facility] (Rec: 11/07/23 12:26 [facility] [id number]) Current Condition History of Current Condition Onset Date mar 2023 Current Complaints B heel pain & rollins/ankle pain History of Current Condition Pt is having R>L heel pain. 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 She got a pair of shoes in mar from [facility] and the back of the heel was so rigid and came up high . She wore them for 1.5 months and thought they needed to break them in. She was walking w/1-2 cane because the pain was into the front of her ankle and into her R Knee. She uses the cane now mostly for outdoor walking like up/down curbs. Her old shoes are more comfortable but 3 years old and she know she needs new shoes. She has arch supports and heel lifts from stock fitter . She wants to inc walking to lose weight and is considering bariatric surgery. She has an abdominal hernia, LBP and cetocele and rectocele and 2 other prolapses. Got her prolapses fixed in Jun 2019. She cannot get hernia fixed unless it is fatal or loses wt . Pt wants [place] get back [place] feels like she is always in pain. pt feels like legs are so heavy. She cannot walk on the grass. She started walking right after prolapse surgery and stayed on paved trail. When she tried gravel/wood paths, it was difficult. Stopped walking d/t pandemic and trail got too busy. She got a little bike (ergo) and can pedal only a few min before back pain. Does stretch her calves. Balance has gotten worse since heel pain. Has had B bunionectomies (when 16 and 31 yo). Pt fx fibula in 2020 L. She has had mult sprains on L ankle. Does have some numbness in toes and heel. She rolls her foot on a bouncy ball but can't d/t knee pain Treatment Goals Patient/Caregiver Goals improve ankle motion, be able to walk w/o cane and walk longer PT-OP-C Subjective Start: 10/18/23 17:48 Freq: Status: Active Protocol: Document 12/20/23 10:28 AB (Rec: 12/20/23 12:21 [id number]) OP-PT Subjective Patient Comments Patient Comments Patient reports having no change in function, but the exercises are going better, is able to perform HEP every other day. Patient rates right knee and foot pain 5-6/10, left knee and foot 3-4/10 start of session. Patient reports new shoes and compression socks are helping. Patient reports the tape helped, lasted 3 days, no skin reaction. PT-OP-F Manual Assessment Start: 10/18/23 17:48 Freq: Status: Active Protocol: Document 11/07/23 11:26 [facility] (Rec: 11/07/23 12:26 [facility] [id number]) Manual Assessments Joint Mobility Assessment Joint Mobility Assessment Varus forefoot and midfoot; dec contact to big toe PT-OP-G Mobility & Gait Start: 10/18/23 17:48 Freq: Status: Active Protocol: Document 11/07/23 11:26 [facility] (Rec: 11/07/23 12:26 [facility] [id number]) OP Gait Assessment Comments Gait Comments pt has inc pelvic rot, inc supination, WBOS, lat lean, dec push off B PT-OP-K Range of Motion Start: 10/18/23 17:48 Freq: Status: Active Protocol: Document 11/07/23 11:26 [facility] (Rec: 11/07/23 12:26 [facility] [id number]) Ankle and Foot Goniometric Range of Motion Ankle and Foot Right Active Dorsiflexion with Knee Flexed 0 Dorsiflexion with Knee Extended 4 Plantarflexion 59 Inversion 44 Eversion 20 Comments lacking DF to neutral in knee ext position Left Active Dorsiflexion with Knee Flexed 3 Dorsiflexion with Knee Extended 2 Plantarflexion 50 Inversion 33 Eversion 21 Comments cramping w/PF/DF lacking DF to neutral in knee ext position PT-OP-L Special Tests Start: 10/18/23 17:48 Freq: Status: Active Protocol: Document 11/07/23 11:26 [facility] (Rec: 11/07/23 12:26 [facility] [id number]) Special Tests Lumbar Spine Special Tests Slump Test Results neg b PT-OP-M Strength Start: 10/18/23 17:48 Freq: Status: Active Protocol: Document 11/07/23 11:26 [facility] (Rec: 11/07/23 12:26 [facility] [id number]) Hip Strength Hip Manual Muscle Testing Right Flexion (L2) 3 Fair External Rotation 3+ Fair+ Internal Rotation 3+ Fair+ Comments pain in knee w/rot Left Flexion (L2) 3 Fair External Rotation 3+ Fair+ Internal Rotation 3+ Fair+ Comments pain hip rot Knee Strength Knee Manual Muscle Testing Right Flexion (S2) 3+ Fair+ Extension (L3) 3+ Fair+ Comments pain in knee Left Flexion (S2) 4+ Good+ Extension (L3) 5 Normal Ankle/Foot Strength Ankle and Foot Manual Muscle Testing Right Dorsiflexion (L4) 3+ Fair+ Plantarflexion (S1) 3+ Fair+ Inversion 3+ Fair+ Eversion (S1) 3+ Fair+ Comments pain Left Dorsiflexion (L4) 4 Good Plantarflexion (S1) 5 Normal Inversion 4 Good Eversion (S1) 4 Good Comments PF tested seated B Toe Strength Toe Manual Muscle Testing Right 2nd Toe Flexion 3+ Fair+ Extension 4 Good Right Great Toe Flexion 3+ Fair+ Extension 4 Good Left 2nd Toe Flexion 4+ Good+ Extension 3 Fair Left Great Toe Flexion 3 Fair Extension 4+ Good+ PT-OP-Q Treatments Start: 10/18/23 17:48 Freq: Status: Active Protocol: Document 12/20/23 10:28 AB (Rec: 12/20/23 12:21 AB [id number]) Therapeutic Exercises Sitting Exercises AROM DF Side bilateral Reps/Minutes 1 min Comments Verbal cues to perform post stretches Standing Exercises calf stretches Standing Exercise Name gastroc and soleus Side bilateral Equipment Used on ayan and on towel roll Reps/Minutes 60 seconds on ayan each stretch 60 sec knees straight on towel roll, 35 bent Comments Patient reports she feels more comfortable on AYAN Manual Therapy Treatment Soft Tissue Mobilization plantar fascia Body Location b Mobilization Type Rolling Intensity/Depth Superficial Body Position Sitting calf Body Location B gastroc/soleus; achilles Mobilization Type Cross-Friction,Rolling, Sustained Pressure Intensity/Depth Superficial Body Position Sitting Comments to moderate Joint Mobilizations ankle Joint Bilateral ankles Grade II Comments Calcaneal distraction tib/fib AP and PA Talocrural mobilization AP Mulligan with movement TC mobilizations X 10 Taping foot/ankle Type of Tape Kinesio Tape Comments I strip for arch support around arch; I strip for dec achilles loading perpendicular across achilles PT-OP-T Assessment and Plan Start: 10/18/23 17:48 Freq: Status: Active Protocol: Document 12/20/23 10:28 AB (Rec: 12/20/23 12:21 AB [id number]) Physical Therapy Assessment Goals strength Short Term Goal (STG) Pt will be indep w/HEP STG Duration 12/22 Jail Goal (LTG) Pt will score at least 4+/5 for all BLE MMT in order to show improved strength and stability of LEs for improved tolerance for daily activities . LTG Duration 01/29 activties Short Term Goal (STG) Pt will feel comfortable and safe to amb in community w/o cane w/o pain in R knee or B ankles greater than 3/10 STG Duration 12/22 Jail Goal (LTG) Pt will be able to start walking program for strength and mobility and return to daily walks w/o inc R knee or B ankle pain greater than 1/10 LTG Duration 01/29 Four Impairment LEFS score of 13/80 Short Term Goal (STG) Pt will improve LEFS to at least 20/80 to show improved functional ability STG Duration 12/22 Steward/Stewardess Deck Goal (LTG) Pt will improve LEFS to at least 35/80 to show improved functional ability LTG Duration 01/29 Three Impairment ROM Short Term Goal (STG) Pt will improve ankle ROM to at least neutral in knee ext position for DF STG Duration 12/22 Jail Goal (LTG) pt will have improved ankle DF to at least 5 deg in knee ext and 10 deg in knee flex position to allow for greater ease w/functional activities including gait and stairs. LTG Duration 01/29 Assessment Summary Assessment Patient comments she feels like she has more mobility ambulating out of session carrying her SPC. Physical Therapy Plan Next Visit Focus/Plan Next Note Type Treatment Note Next Visit Plan avoid modalities d/t dec sensation, assess taping response, give standing calf stretch, STM to calves and foot gently,jt mobes R>L Possibly calf stretch on book
--- NOTE | 2024-01-01 12:15 | PT.OTN ---
Current Diagnoses Type 2 diabetes mellitus without complications (01/01/24) Contracture of muscle, right lower leg (01/01/24) Contracture of muscle, left lower leg (01/01/24) Muscle weakness (generalized) (01/01/24) Metatarsalgia, right foot (01/01/24) Metatarsalgia, left foot (01/01/24) Difficulty in walking, not elsewhere classified (01/01/24) Abnormal posture (01/01/24) Physical Therapy Treatment Note PT-OP-A Visit Information Start: 10/18/23 17:48 Freq: Status: Active Protocol: Document 01/01/24 11:19 AB (Rec: 01/01/24 12:14 AB [id number]) Out-Patient Physical Therapy Visit Information Visit Information Visit Type Treatment Note Visit Note insurance limited by 24 units Visit Start Time 11:20 Visit Stop Time 12:07 Visit Number 5 Number of LASER SPECIALIST Visits 2 PT-OP-B Current Condition Start: 10/18/23 17:48 Freq: Status: Active Protocol: Document 11/07/23 11:26 [facility] (Rec: 11/07/23 12:26 [facility] [id number]) Current Condition History of Current Condition Onset Date mar 2023 Current Complaints B heel pain & rollins/ankle pain History of Current Condition Pt is having R>L heel pain. 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 She got a pair of shoes in mar from [facility] shoe [facility] and the back of the heel was so rigid and came up high . She wore them for 1.5 months and thought they needed to break them in. She was walking w/1-2 cane because the pain was into the front of her ankle and into her R Knee. She uses the cane now mostly for outdoor walking like up/down curbs. Her old shoes are more comfortable but 3 years old and she know she needs new shoes. She has arch supports and heel lifts from professor of economics . She wants to inc walking to lose weight and is considering bariatric surgery. She has an abdominal hernia, LBP and cetocele and rectocele and 2 other prolapses. Got her prolapses fixed in Jun 2019. She cannot get hernia fixed unless it is fatal or loses wt . Pt wants to get back [place] walking [place] feels like she is always in pain. pt feels like legs are so heavy. She cannot walk on the grass. She started walking right after prolapse surgery and stayed on paved trail. When she tried gravel/wood paths, it was difficult. Stopped walking d/t pandemic and trail got too busy. She got a little bike (ergo) and can pedal only a few min before back pain. Does stretch her calves. Balance has gotten worse since heel pain. Has had B bunionectomies (when 16 and 31 yo). Pt fx fibula in 2020 L. She has had mult sprains on L ankle. Does have some numbness in toes and heel. She rolls her foot on a bouncy ball but can't d/t knee pain Treatment Goals Patient/Caregiver Goals improve ankle motion, be able to walk w/o cane and walk longer PT-OP-C Subjective Start: 10/18/23 17:48 Freq: Status: Active Protocol: Document 01/01/24 11:19 AB (Rec: 01/01/24 12:14 [id number]) OP-PT Subjective Patient Comments Patient Comments Patient reports her ankle pain is the same, is not getting better, right continues to be worse than the left. Patient reports she has been doing the stretches consistantly, band exercise and rolling her foot on the ball. Patient reports the tape fell off with in a day and patient feels the mobilization ant tib area. PT-OP-F Manual Assessment Start: 10/18/23 17:48 Freq: Status: Active Protocol: Document 11/07/23 11:26 [facility] (Rec: 11/07/23 12:26 [facility] [id number]) Manual Assessments Joint Mobility Assessment Joint Mobility Assessment Varus forefoot and midfoot; dec contact to big toe PT-OP-G Mobility & Gait Start: 10/18/23 17:48 Freq: Status: Active Protocol: Document 11/07/23 11:26 [facility] (Rec: 11/07/23 12:26 [facility] [id number]) OP Gait Assessment Comments Gait Comments pt has inc pelvic rot, inc supination, WBOS, lat lean, dec push off B PT-OP-K Range of Motion Start: 10/18/23 17:48 Freq: Status: Active Protocol: Document 11/07/23 11:26 [facility] (Rec: 11/07/23 12:26 [facility] [id number]) Ankle and Foot Goniometric Range of Motion Ankle and Foot Right Active Dorsiflexion with Knee Flexed 0 Dorsiflexion with Knee Extended 4 Plantarflexion 59 Inversion 44 Eversion 20 Comments lacking DF to neutral in knee ext position Left Active Dorsiflexion with Knee Flexed 3 Dorsiflexion with Knee Extended 2 Plantarflexion 50 Inversion 33 Eversion 21 Comments cramping w/PF/DF lacking DF to neutral in knee ext position PT-OP-L Special Tests Start: 10/18/23 17:48 Freq: Status: Active Protocol: Document 11/07/23 11:26 [facility] (Rec: 11/07/23 12:26 [facility] [id number]) Special Tests Lumbar Spine Special Tests Slump Test Results neg b PT-OP-M Strength Start: 10/18/23 17:48 Freq: Status: Active Protocol: Document 11/07/23 11:26 [facility] (Rec: 11/07/23 12:26 [facility] [id number]) Hip Strength Hip Manual Muscle Testing Right Flexion (L2) 3 Fair External Rotation 3+ Fair+ Internal Rotation 3+ Fair+ Comments pain in knee w/rot Left Flexion (L2) 3 Fair External Rotation 3+ Fair+ Internal Rotation 3+ Fair+ Comments pain hip rot Knee Strength Knee Manual Muscle Testing Right Flexion (S2) 3+ Fair+ Extension (L3) 3+ Fair+ Comments pain in knee Left Flexion (S2) 4+ Good+ Extension (L3) 5 Normal Ankle/Foot Strength Ankle and Foot Manual Muscle Testing Right Dorsiflexion (L4) 3+ Fair+ Plantarflexion (S1) 3+ Fair+ Inversion 3+ Fair+ Eversion (S1) 3+ Fair+ Comments pain Left Dorsiflexion (L4) 4 Good Plantarflexion (S1) 5 Normal Inversion 4 Good Eversion (S1) 4 Good Comments PF tested seated B Toe Strength Toe Manual Muscle Testing Right 2nd Toe Flexion 3+ Fair+ Extension 4 Good Right Great Toe Flexion 3+ Fair+ Extension 4 Good Left 2nd Toe Flexion 4+ Good+ Extension 3 Fair Left Great Toe Flexion 3 Fair Extension 4+ Good+ PT-OP-Q Treatments Start: 10/18/23 17:48 Freq: Status: Active Protocol: Document 01/01/24 11:19 AB (Rec: 01/01/24 12:14 AB [id number]) Therapeutic Exercises Supine Exercises ankle pumps Side bilateral Reps/Minutes X30 each LE Sitting Exercises AROM DF Side bilateral Reps/Minutes X15 each Comments Verbal cues to perform post stretches tbands Sitting Exercise Name DF only Equipment Used level 3 band Reps/Minutes X10 each Standing Exercises calf stretches Standing Exercise Name gastroc and soleus Side bilateral Equipment Used on ~2 inch block and AYAN Reps/Minutes 30-60 seconds X 1 each stretch each LE on block and x2 on AYAN 60 sec Manual Therapy Treatment Soft Tissue Mobilization plantar fascia Body Location b Mobilization Type Rolling Intensity/Depth Superficial Body Position Sitting calf Body Location B gastroc/soleus; achilles Mobilization Type Cross-Friction,Rolling, Sustained Pressure Intensity/Depth Superficial Body Position Sitting Comments to moderate PT-OP-T Assessment and Plan Start: 10/18/23 17:48 Freq: Status: Active Protocol: Document 01/01/24 11:19 AB (Rec: 01/01/24 12:14 AB [id number]) Physical Therapy Assessment Goals strength Short Term Goal (STG) Pt will be indep w/HEP STG Duration 12/22 [place] Guide Goal (LTG) Pt will score at least 4+/5 for all BLE MMT in order to show improved strength and stability of LEs for improved tolerance for daily activities . LTG Duration 01/29 activties Short Term Goal (STG) Pt will feel comfortable and safe to amb in community w/o cane w/o pain in R knee or B ankles greater than 3/10 STG Duration 12/22 [place] Guide Goal (LTG) Pt will be able to start walking program for strength and mobility and return to daily walks w/o inc R knee or B ankle pain greater than 1/10 LTG Duration 01/29 Four Impairment LEFS score of 13/80 Short Term Goal (STG) Pt will improve LEFS to at least 20/80 to show improved functional ability STG Duration 12/22 Alf Goal (LTG) Pt will improve LEFS to at least 35/80 to show improved functional ability LTG Duration 01/29 Three Impairment ROM Short Term Goal (STG) Pt will improve ankle ROM to at least neutral in knee ext position for DF STG Duration 12/22 Alf Goal (LTG) pt will have improved ankle DF to at least 5 deg in knee ext and 10 deg in knee flex position to allow for greater ease w/functional activities including gait and stairs. LTG Duration 01/29 Assessment Summary Assessment Patient reports feeling stiff TC and anterior ankle/dorsal surface of bilateral feet. Physical Therapy Plan Frequency and Duration Frequency of Treatment 2x/Week Duration of treatment (weeks) 12 Plan of Care Start Date 11/07/23 Plan of Care End Date 01/30/24 Next Visit Focus/Plan Next Note Type Treatment Note Next Visit Plan avoid modalities d/t dec sensation, STM to calves and foot gently, trial gentle jt mobes R>L not MWM, squats vs mini lunge/weight shift to HEP /review
--- NOTE | 2024-01-15 12:05 | PT.OTN ---
Current Diagnoses Type 2 diabetes mellitus without complications (01/15/24) Contracture of muscle, right lower leg (01/15/24) Contracture of muscle, left lower leg (01/15/24) Muscle weakness (generalized) (01/15/24) Metatarsalgia, right foot (01/15/24) Metatarsalgia, left foot (01/15/24) Difficulty in walking, not elsewhere classified (01/15/24) Abnormal posture (01/15/24) Physical Therapy Treatment Note PT-OP-A Visit Information Start: 10/18/23 17:48 Freq: Status: Active Protocol: Document 01/15/24 10:36 AB (Rec: 01/15/24 12:05 AB [id number]) Out-Patient Physical Therapy Visit Information Visit Information Visit Type Treatment Note Visit Note insurance limited by 24 units Access Code [email or web address] Visit Start Time 11:19 Visit Stop Time 11:58 Visit Number 6 Number of GANTRY CRANE OPERATOR Visits 3 PT-OP-B Current Condition Start: 10/18/23 17:48 Freq: Status: Active Protocol: Document 11/07/23 11:26 [facility] (Rec: 11/07/23 12:26 [facility] [id number]) Current Condition History of Current Condition Onset Date mar 2023 Current Complaints B heel pain & rollins/ankle pain History of Current Condition Pt is having R>L heel pain. 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 She got a pair of shoes in mar from [facility] and the back of the heel was so rigid and came up high . She wore them for 1.5 months and thought they needed to break them in. She was walking w/1-2 cane because the pain was into the front of her ankle and into her R Knee. She uses the cane now mostly for outdoor walking like up/down curbs. Her old shoes are more comfortable but 3 years old and she know she needs new shoes. She has arch supports and heel lifts from utility plant operative . She wants to inc walking to lose weight and is considering bariatric surgery. She has an abdominal hernia, LBP and cetocele and rectocele and 2 other prolapses. Got her prolapses fixed in Jun 2019. She cannot get hernia fixed unless it is fatal or loses wt . Pt wants [place] get back [place] feels like she is always in pain. pt feels like legs are so heavy. She cannot walk on the grass. She started walking right after prolapse surgery and stayed on paved trail. When she tried gravel/wood paths, it was difficult. Stopped walking d/t pandemic and trail got too busy. She got a little bike (ergo) and can pedal only a few min before back pain. Does stretch her calves. Balance has gotten worse since heel pain. Has had B bunionectomies (when 16 and 31 yo). Pt fx fibula in 2020 L. She has had mult sprains on L ankle. Does have some numbness in toes and heel. She rolls her foot on a bouncy ball but can't d/t knee pain Treatment Goals Patient/Caregiver Goals improve ankle motion, be able to walk w/o cane and walk longer PT-OP-C Subjective Start: 10/18/23 17:48 Freq: Status: Active Protocol: Document 01/15/24 10:36 AB (Rec: 01/15/24 12:05 [id number]) OP-PT Subjective Patient Comments Patient Comments Patient reports doing the exercises with the band 4-5 times since previous session. Patient reports doing the stretching with the band daily , and rocking the foot every other day. Patient reports the ankles are the same. PT-OP-F Manual Assessment Start: 10/18/23 17:48 Freq: Status: Active Protocol: Document 11/07/23 11:26 [facility] (Rec: 11/07/23 12:26 [facility] [id number]) Manual Assessments Joint Mobility Assessment Joint Mobility Assessment Varus forefoot and midfoot; dec contact to big toe PT-OP-G Mobility & Gait Start: 10/18/23 17:48 Freq: Status: Active Protocol: Document 11/07/23 11:26 [facility] (Rec: 11/07/23 12:26 [facility] [id number]) OP Gait Assessment Comments Gait Comments pt has inc pelvic rot, inc supination, WBOS, lat lean, dec push off B PT-OP-K Range of Motion Start: 10/18/23 17:48 Freq: Status: Active Protocol: Document 11/07/23 11:26 [facility] (Rec: 11/07/23 12:26 [facility] [id number]) Ankle and Foot Goniometric Range of Motion Ankle and Foot Right Active Dorsiflexion with Knee Flexed 0 Dorsiflexion with Knee Extended 4 Plantarflexion 59 Inversion 44 Eversion 20 Comments lacking DF to neutral in knee ext position Left Active Dorsiflexion with Knee Flexed 3 Dorsiflexion with Knee Extended 2 Plantarflexion 50 Inversion 33 Eversion 21 Comments cramping w/PF/DF lacking DF to neutral in knee ext position PT-OP-L Special Tests Start: 10/18/23 17:48 Freq: Status: Active Protocol: Document 11/07/23 11:26 [facility] (Rec: 11/07/23 12:26 [facility] [id number]) Special Tests Lumbar Spine Special Tests Slump Test Results neg b PT-OP-M Strength Start: 10/18/23 17:48 Freq: Status: Active Protocol: Document 11/07/23 11:26 [facility] (Rec: 11/07/23 12:26 [facility] [id number]) Hip Strength Hip Manual Muscle Testing Right Flexion (L2) 3 Fair External Rotation 3+ Fair+ Internal Rotation 3+ Fair+ Comments pain in knee w/rot Left Flexion (L2) 3 Fair External Rotation 3+ Fair+ Internal Rotation 3+ Fair+ Comments pain hip rot Knee Strength Knee Manual Muscle Testing Right Flexion (S2) 3+ Fair+ Extension (L3) 3+ Fair+ Comments pain in knee Left Flexion (S2) 4+ Good+ Extension (L3) 5 Normal Ankle/Foot Strength Ankle and Foot Manual Muscle Testing Right Dorsiflexion (L4) 3+ Fair+ Plantarflexion (S1) 3+ Fair+ Inversion 3+ Fair+ Eversion (S1) 3+ Fair+ Comments pain Left Dorsiflexion (L4) 4 Good Plantarflexion (S1) 5 Normal Inversion 4 Good Eversion (S1) 4 Good Comments PF tested seated B Toe Strength Toe Manual Muscle Testing Right 2nd Toe Flexion 3+ Fair+ Extension 4 Good Right Great Toe Flexion 3+ Fair+ Extension 4 Good Left 2nd Toe Flexion 4+ Good+ Extension 3 Fair Left Great Toe Flexion 3 Fair Extension 4+ Good+ PT-OP-Q Treatments Start: 10/18/23 17:48 Freq: Status: Active Protocol: Document 01/15/24 10:36 AB (Rec: 01/15/24 12:05 AB [id number]) Therapeutic Exercises Supine Exercises ankle pumps Supine Exercise Name long sitting Side bilateral Reps/Minutes X30 each LE Sitting Exercises AROM DF Side bilateral Reps/Minutes X15 each Comments Verbal cues to perform post stretches Standing Exercises squat Standing Exercise Name mini squat Side bilateral Equipment Used Parallel bar then mauritian ball on mat at bed height for UE support Reps/Minutes X3 and X 7 Comments VC to squat to a depth that does not increase pain calf stretches Standing Exercise Name gastroc and soleus Side bilateral Equipment Used AYAN Reps/Minutes 60 sec X 2 each Comments Verbal cues Manual Therapy Treatment Soft Tissue Mobilization plantar fascia Body Location b Mobilization Type Rolling Intensity/Depth Superficial Body Position Sitting calf Body Location B gastroc/soleus; achilles Mobilization Type Cross-Friction,Rolling, Sustained Pressure Intensity/Depth Superficial Body Position Sitting Comments to moderate Joint Mobilizations ankle Joint Bilateral ankles Grade II Comments Calcaneal distraction tib/fib AP and PA Talocrural mobilization AP Mulligan with movement TC mobilizations X 10 Taping foot/ankle Type of Tape Kinesio Tape Comments I strip for arch support around arch; I strip for dec achilles loading perpendicular across achilles PT-OP-T Assessment and Plan Start: 10/18/23 17:48 Freq: Status: Active Protocol: Document 01/15/24 10:36 AB (Rec: 01/15/24 12:05 AB [id number]) Physical Therapy Assessment Goals strength Short Term Goal (STG) Pt will be indep w/HEP STG Duration 12/22 Link Wire Fabric Machine Operator Goal (LTG) Pt will score at least 4+/5 for all BLE MMT in order to show improved strength and stability of LEs for improved tolerance for daily activities . LTG Duration 01/29 activties Short Term Goal (STG) Pt will feel comfortable and safe to amb in community w/o cane w/o pain in R knee or B ankles greater than 3/10 STG Duration 12/22 Custodial Goal (LTG) Pt will be able to start walking program for strength and mobility and return to daily walks w/o inc R knee or B ankle pain greater than 1/10 LTG Duration 01/29 Four Impairment LEFS score of 13/80 Short Term Goal (STG) Pt will improve LEFS to at least 20/80 to show improved functional ability STG Duration 12/22 Custodial Goal (LTG) Pt will improve LEFS to at least 35/80 to show improved functional ability LTG Duration 01/29 Three Impairment ROM Short Term Goal (STG) Pt will improve ankle ROM to at least neutral in knee ext position for DF STG Duration 12/22 Link Wire Fabric Machine Operator Goal (LTG) pt will have improved ankle DF to at least 5 deg in knee ext and 10 deg in knee flex position to allow for greater ease w/functional activities including gait and stairs. LTG Duration 01/29 Assessment Summary Assessment Julia reports feeling good end of session, no increased pain per patient, but comments she does often feel pain next day . Physical Therapy Plan Frequency and Duration Frequency of Treatment 2x/Week Duration of treatment (weeks) 12 Plan of Care Start Date 11/07/23 Plan of Care End Date 01/30/24 Next Visit Focus/Plan Next Note Type Treatment Note Next Visit Plan avoid modalities d/t dec sensation, STM to calves and foot gently, trial gentle jt mobes R>L not MWM, Assess malia to squats at home
--- NOTE | 2024-01-29 15:17 | PT.OTN ---
Current Diagnoses Type 2 diabetes mellitus without complications (01/29/24) Contracture of muscle, right lower leg (01/29/24) Contracture of muscle, left lower leg (01/29/24) Muscle weakness (generalized) (01/29/24) Metatarsalgia, right foot (01/29/24) Metatarsalgia, left foot (01/29/24) Difficulty in walking, not elsewhere classified (01/29/24) Abnormal posture (01/29/24) Physical Therapy Treatment Note PT-OP-A Visit Information Start: 10/18/23 17:48 Freq: Status: Active Protocol: Document 01/29/24 11:01 [facility] (Rec: 01/29/24 15:10 [facility] [id number]) Out-Patient Physical Therapy Visit Information Visit Information Visit Type Progress Note Visit Note insurance limited by 24 units Access Code [email or web address] Visit Start Time 11:23 Visit Stop Time 11:58 Visit Number 7 Number of BPM ARCHITECT Visits 0 PT-OP-B Current Condition Start: 10/18/23 17:48 Freq: Status: Active Protocol: Document 11/07/23 11:26 [facility] (Rec: 11/07/23 12:26 [facility] [id number]) Current Condition History of Current Condition Onset Date mar 2023 Current Complaints B heel pain & rollins/ankle pain History of Current Condition Pt is having R>L heel pain. 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 She got a pair of shoes in mar from [facility] shoe [facility] and the back of the heel was so rigid and came up high . She wore them for 1.5 months and thought they needed to break them in. She was walking w/1-2 cane because the pain was into the front of her ankle and into her R Knee. She uses the cane now mostly for outdoor walking like up/down curbs. Her old shoes are more comfortable but 3 years old and she know she needs new shoes. She has arch supports and heel lifts from carbon blocks press operator . She wants to inc walking to lose weight and is considering bariatric surgery. She has an abdominal hernia, LBP and cetocele and rectocele and 2 other prolapses. Got her prolapses fixed in Jun 2019. She cannot get hernia fixed unless it is fatal or loses wt . Pt wants to get back to walking [place] the [place]and feels like she is always in pain. pt feels like legs are so heavy. She cannot walk on the grass. She started walking right after prolapse surgery and stayed on paved trail. When she tried gravel/wood paths, it was difficult. Stopped walking d/t pandemic and trail got too busy. She got a little bike (ergo) and can pedal only a few min before back pain. Does stretch her calves. Balance has gotten worse since heel pain. Has had B bunionectomies (when 16 and 31 yo). Pt fx fibula in 2020 L. She has had mult sprains on L ankle. Does have some numbness in toes and heel. She rolls her foot on a bouncy ball but can't d/t knee pain Treatment Goals Patient/Caregiver Goals improve ankle motion, be able to walk w/o cane and walk longer PT-OP-C Subjective Start: 10/18/23 17:48 Freq: Status: Active Protocol: Document 01/29/24 11:01 [facility] (Rec: 01/29/24 15:10 [facility] [id number]) OP-PT Subjective Patient Comments Patient Comments Pt reports had a lot of pain in R>L lower rollins and top of foot. R calf feels like it is cramped up PT-OP-F Manual Assessment Start: 10/18/23 17:48 Freq: Status: Active Protocol: Document 11/07/23 11:26 [facility] (Rec: 11/07/23 12:26 [facility] [id number]) Manual Assessments Joint Mobility Assessment Joint Mobility Assessment Varus forefoot and midfoot; dec contact to big toe PT-OP-G Mobility & Gait Start: 10/18/23 17:48 Freq: Status: Active Protocol: Document 11/07/23 11:26 [facility] (Rec: 11/07/23 12:26 [facility] [id number]) OP Gait Assessment Comments Gait Comments pt has inc pelvic rot, inc supination, WBOS, lat lean, dec push off B PT-OP-K Range of Motion Start: 10/18/23 17:48 Freq: Status: Active Protocol: Document 01/29/24 11:01 [facility] (Rec: 01/29/24 15:10 [facility] [id number]) Ankle and Foot Goniometric Range of Motion Ankle and Foot Right Active Dorsiflexion with Knee Flexed 6 Dorsiflexion with Knee Extended 5 Plantarflexion 58 Left Active Dorsiflexion with Knee Flexed 6 Dorsiflexion with Knee Extended 4 Plantarflexion 56 PT-OP-L Special Tests Start: 10/18/23 17:48 Freq: Status: Active Protocol: Document 11/07/23 11:26 [facility] (Rec: 11/07/23 12:26 [facility] [id number]) Special Tests Lumbar Spine Special Tests Slump Test Results neg b PT-OP-M Strength Start: 10/18/23 17:48 Freq: Status: Active Protocol: Document 01/29/24 11:01 [facility] (Rec: 01/29/24 15:10 [facility] [id number]) Hip Strength Hip Manual Muscle Testing Right Flexion (L2) 4- Good- External Rotation 4- Good- Internal Rotation 4- Good- Left Flexion (L2) 4- Good- External Rotation 4- Good- Internal Rotation 4- Good- Comments pain hip rot B Knee Strength Knee Manual Muscle Testing Right Flexion (S2) 4 Good Extension (L3) 4 Good Comments pain in knee Left Flexion (S2) 4+ Good+ Extension (L3) 5 Normal Ankle/Foot Strength Ankle and Foot Manual Muscle Testing Right Dorsiflexion (L4) 4 Good Plantarflexion (S1) 4+ Good+ Inversion 4+ Good+ Eversion (S1) 4 Good Comments pain Left Dorsiflexion (L4) 4+ Good+ Plantarflexion (S1) 5 Normal Inversion 4+ Good+ Eversion (S1) 4+ Good+ Comments PF tested seated B PT-OP-Q Treatments Start: 10/18/23 17:48 Freq: Status: Active Protocol: Document 01/29/24 11:01 [facility] (Rec: 01/29/24 15:10 [facility] [id number]) Therapeutic Exercises Sitting Exercises knee ext Side bilateral Equipment Used L3 Reps/Minutes 10 HS curl Side bilateral Equipment Used L3 Reps/Minutes 8 hip abd Sitting Exercise Name 1. hold 2. hip ROM Side bilateral Equipment Used L3 band Reps/Minutes 1. 30 sec 2. 10 august Side bilateral Equipment Used L3 band Reps/Minutes 10 Comments core cues Manual Therapy Treatment Consent Patient gave verbal consent for manual Yes treatment Soft Tissue Mobilization calf Body Location R achilles Mobilization Type Cross-Friction,Rolling, Sustained Pressure Intensity/Depth Superficial Body Position Sitting Taping foot/ankle Body Location B Type of Tape Kinesio Tape Comments I strip for arch support around arch; I strip for dec achilles loading perpendicular across achilles Neuro Re-Education Treatment Balance Activities NBOS Comments EC trials by counter staggered stance Comments B trials w/EC PT-OP-T Assessment and Plan Start: 10/18/23 17:48 Freq: Status: Active Protocol: Document 01/29/24 11:01 [facility] (Rec: 01/29/24 15:10 [facility] [id number]) Physical Therapy Assessment Goals strength Short Term Goal (STG) Pt will be indep w/HEP STG Duration achieved advancing as able Prison Goal (LTG) Pt will score at least 4+/5 for all BLE MMT in order to show improved strength and stability of LEs for improved tolerance for daily activities . 01/28 improved LTG Duration 03/30 activties Short Term Goal (STG) Pt will feel comfortable and safe to amb in community w/o cane w/o pain in R knee or B ankles greater than 3/10 01/28-after grocery store -02/01 and can take a couple days to recover STG Duration 02/24 Flatbed Press Operator Goal (LTG) Pt will be able to start walking program for strength and mobility and return to daily walks w/o inc R knee or B ankle pain greater than 1/10 01/28-unable to go for walks LTG Duration 04/02 Four Impairment LEFS score of 13/80 Short Term Goal (STG) Pt will improve LEFS to at least 20/80 to show improved functional ability 01/28-improved to 19 STG Duration 02/23 Prison Goal (LTG) Pt will improve LEFS to at least 35/80 to show improved functional ability LTG Duration 04/02 Three Impairment ROM Short Term Goal (STG) Pt will improve ankle ROM to at least neutral in knee ext position for DF STG Duration achieved 01/28 Flatbed Press Operator Goal (LTG) pt will have improved ankle DF to at least 5 deg in knee ext and 10 deg in knee flex position to allow for greater ease w/functional activities including gait and stairs. LTG Duration 04/02 Assessment Summary Assessment Pt is making slow progress towards goals. She is limited by her fibromyalgia and chronic pain in mult joints including back/hips. SHe has improved ankle ROM and reports relief w/tape. Pt would benefit from skilled PT for strength/balance and dec pain. Physical Therapy Plan Frequency and Duration Frequency of Treatment 1-2x/wk Duration of treatment (weeks) 8 Plan of Care Start Date 01/29/24 Plan of Care End Date 04/02/24 Therapeutic Interventions Therapeutic Interventions Balance Training,Gait Training ,Home Exercise Program,Joint Mobilizations,Manual Therapy, Neuromuscular Re-education, Orthotic/Prosthetic Management ,Patient/Caregiver Education, Self-Care/Home Management,Soft Tissue Mobilization,Taping, Therapeutic Activities, Therapeutic Exercises Modalities Cold Pack/Ice Massage,Electric Stimulation,Hot Packs, Infrared Therapy,Ultrasound Other Therapeutic Interventions be careful w/all modalities as pt has dec foot sensation so modalities only to areas sensation is checked first Next Visit Focus/Plan Next Note Type Treatment Note Next Visit Plan avoid modalities d/t dec sensation, STM to calves and foot gently, trial gentle jt mobes R>L not MWM, cont to gradually add LE strength and balance
--- NOTE | 2024-02-06 12:05 | PT.OTN ---
Current Diagnoses Type 2 diabetes mellitus without complications (02/06/24) Contracture of muscle, right lower leg (02/06/24) Contracture of muscle, left lower leg (02/06/24) Muscle weakness (generalized) (02/06/24) Metatarsalgia, right foot (02/06/24) Metatarsalgia, left foot (02/06/24) Difficulty in walking, not elsewhere classified (02/06/24) Abnormal posture (02/06/24) Physical Therapy Treatment Note PT-OP-A Visit Information Start: 10/18/23 17:48 Freq: Status: Active Protocol: Document 02/06/24 11:22 [facility] (Rec: 02/06/24 12:05 [facility] [id number]) Out-Patient Physical Therapy Visit Information Visit Information Visit Type Treatment Note Visit Note insurance limited by 24 units Access Code [email or web address] Visit Start Time 11:21 Visit Stop Time 11:57 Visit Number [address] [place] Visits 0 PT-OP-B Current Condition Start: 10/18/23 17:48 Freq: Status: Active Protocol: Document 11/07/23 11:26 [facility] (Rec: 11/07/23 12:26 [facility] [id number]) Current Condition History of Current Condition Onset Date mar 2023 Current Complaints B heel pain & rollins/ankle pain History of Current Condition Pt is having R>L heel pain. 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 She got a pair of shoes in mar from [facility] and the back of the heel was so rigid and came up high . She wore them for 1.5 months and thought they needed to break them in. She was walking w/1-2 cane because the pain was into the front of her ankle and into her R Knee. She uses the cane now mostly for outdoor walking like up/down curbs. Her old shoes are more comfortable but 3 years old and she know she needs new shoes. She has arch supports and heel lifts from woodwork salvage inspector . She wants to inc walking to lose weight and is considering bariatric surgery. She has an abdominal hernia, LBP and cetocele and rectocele and 2 other prolapses. Got her prolapses fixed in Jun 2019. She cannot get hernia fixed unless it is fatal or loses wt . Pt [place] get back [place] feels like she is always in pain. pt feels like legs are so heavy. She cannot walk on the grass. She started walking right after prolapse surgery and stayed on paved trail. When she tried gravel/wood paths, it was difficult. Stopped walking d/t pandemic and trail got too busy. She got a little bike (ergo) and can pedal only a few min before back pain. Does stretch her calves. Balance has gotten worse since heel pain. Has had B bunionectomies (when 16 and 31 yo). Pt fx fibula in 2020 L. She has had mult sprains on L ankle. Does have some numbness in toes and heel. She rolls her foot on a bouncy ball but can't d/t knee pain Treatment Goals Patient/Caregiver Goals improve ankle motion, be able to walk w/o cane and walk longer PT-OP-C Subjective Start: 10/18/23 17:48 Freq: Status: Active Protocol: Document 02/06/24 11:22 [facility] (Rec: 02/06/24 12:05 [facility] [id number]) OP-PT Subjective Patient Comments Patient Comments Pt reports tape stuck too much and peeled off skin last time . hasn't had a chance to try exercises. some hip pain after last session. did do some balance PT-OP-F Manual Assessment Start: 10/18/23 17:48 Freq: Status: Active Protocol: Document 11/07/23 11:26 [facility] (Rec: 11/07/23 12:26 [facility] [id number]) Manual Assessments Joint Mobility Assessment Joint Mobility Assessment Varus forefoot and midfoot; dec contact to big toe PT-OP-G Mobility & Gait Start: 10/18/23 17:48 Freq: Status: Active Protocol: Document 11/07/23 11:26 [facility] (Rec: 11/07/23 12:26 [facility] [id number]) OP Gait Assessment Comments Gait Comments pt has inc pelvic rot, inc supination, WBOS, lat lean, dec push off B PT-OP-K Range of Motion Start: 10/18/23 17:48 Freq: Status: Active Protocol: Document 01/29/24 11:01 [facility] (Rec: 01/29/24 15:10 [facility] [id number]) Ankle and Foot Goniometric Range of Motion Ankle and Foot Right Active Dorsiflexion with Knee Flexed 6 Dorsiflexion with Knee Extended 5 Plantarflexion 58 Left Active Dorsiflexion with Knee Flexed 6 Dorsiflexion with Knee Extended 4 Plantarflexion 56 PT-OP-L Special Tests Start: 10/18/23 17:48 Freq: Status: Active Protocol: Document 11/07/23 11:26 [facility] (Rec: 11/07/23 12:26 [facility] [id number]) Special Tests Lumbar Spine Special Tests Slump Test Results neg b PT-OP-M Strength Start: 10/18/23 17:48 Freq: Status: Active Protocol: Document 01/29/24 11:01 [facility] (Rec: 01/29/24 15:10 [facility] [id number]) Hip Strength Hip Manual Muscle Testing Right Flexion (L2) 4- Good- External Rotation 4- Good- Internal Rotation 4- Good- Left Flexion (L2) 4- Good- External Rotation 4- Good- Internal Rotation 4- Good- Comments pain hip rot B Knee Strength Knee Manual Muscle Testing Right Flexion (S2) 4 Good Extension (L3) 4 Good Comments pain in knee Left Flexion (S2) 4+ Good+ Extension (L3) 5 Normal Ankle/Foot Strength Ankle and Foot Manual Muscle Testing Right Dorsiflexion (L4) 4 Good Plantarflexion (S1) 4+ Good+ Inversion 4+ Good+ Eversion (S1) 4 Good Comments pain Left Dorsiflexion (L4) 4+ Good+ Plantarflexion (S1) 5 Normal Inversion 4+ Good+ Eversion (S1) 4+ Good+ Comments PF tested seated B PT-OP-Q Treatments Start: 10/18/23 17:48 Freq: Status: Active Protocol: Document 02/06/24 11:22 [facility] (Rec: 02/06/24 12:05 [facility] [id number]) Therapeutic Exercises Sitting Exercises knee ext Side bilateral Equipment Used L3 Reps/Minutes 12 HS curl Side bilateral Equipment Used L3 Reps/Minutes 10 hip abd Sitting Exercise Name 1. hold 2. hip ROM Side bilateral Equipment Used L3 band Reps/Minutes 1. 1 min 2. 10 march Side bilateral Equipment Used L3 band Reps/Minutes 10 Comments core cues Standing Exercises HS curl Standing Exercise Name forearms on mat Side bilateral Reps/Minutes 10 hip abd Standing Exercise Name standing Side bilateral Reps/Minutes 10 Comments cues core josey pose Side bilateral Equipment Used uzbek ball on mat table Reps/Minutes 10 plank Standing Exercise Name on wall w/forearm on wall Side bilateral Reps/Minutes 2x15 sec squat Standing Exercise Name mini squat Side bilateral Equipment Used bed w/uzbek ball (green) Reps/Minutes 15 Comments cues glute sqeeze Manual Therapy Treatment Consent Patient gave verbal consent for manual Yes treatment Soft Tissue Mobilization calf Body Location R achilles Mobilization Type Cross-Friction,Rolling, Sustained Pressure Intensity/Depth Superficial Body Position Sitting Joint Mobilizations ankle Joint R distraction calcaneus PT-OP-T Assessment and Plan Start: 10/18/23 17:48 Freq: Status: Active Protocol: Document 02/06/24 11:22 [facility] (Rec: 02/06/24 12:05 [facility] [id number]) Physical Therapy Assessment Goals strength Short Term Goal (STG) Pt will be indep w/HEP STG Duration achieved advancing as able Prison Goal (LTG) Pt will score at least 4+/5 for all BLE MMT in order to show improved strength and stability of LEs for improved tolerance for daily activities . 01/28 improved LTG Duration 03/30 activties Short Term Goal (STG) Pt will feel comfortable and safe to amb in community w/o cane w/o pain in R knee or B ankles greater than 3/10 01/28-after grocery store -02/01 and can take a couple days to recover STG Duration 02/24 Prison Goal (LTG) Pt will be able to start walking program for strength and mobility and return to daily walks w/o inc R knee or B ankle pain greater than 1/10 01/28-unable to go for walks LTG Duration 04/02 Four Impairment LEFS score of 13/80 Short Term Goal (STG) Pt will improve LEFS to at least 20/80 to show improved functional ability 01/28-improved to 19 STG Duration 02/23 Senior Drupal Developer Goal (LTG) Pt will improve LEFS to at least 35/80 to show improved functional ability LTG Duration 04/02 Three Impairment ROM Short Term Goal (STG) Pt will improve ankle ROM to at least neutral in knee ext position for DF STG Duration achieved 01/28 Prison Goal (LTG) pt will have improved ankle DF to at least 5 deg in knee ext and 10 deg in knee flex position to allow for greater ease w/functional activities including gait and stairs. LTG Duration 04/02 Assessment Summary Assessment Pt did well with new exercises w/cues for comfortable range and reps. [facility] [place] for core engagement. Physical Therapy Plan Frequency and Duration Frequency of Treatment 1-2x/wk Duration of treatment (weeks) 8 Plan of Care Start Date 01/29/24 Plan of Care End Date 04/02/24 Next Visit Focus/Plan Next Note Type Treatment Note Next Visit Plan avoid modalities d/t dec sensation,avoid tape on foot, STM to calves and foot gently , trial gentle jt mobes R>L not MWM, cont to gradually add LE strength and balance
--- NOTE | 2024-02-28 11:11 | PT.OTN ---
Current Diagnoses Type 2 diabetes mellitus without complications (02/28/24) Contracture of muscle, right lower leg (02/28/24) Contracture of muscle, left lower leg (02/28/24) Muscle weakness (generalized) (02/28/24) Metatarsalgia, right foot (02/28/24) Metatarsalgia, left foot (02/28/24) Difficulty in walking, not elsewhere classified (02/28/24) Abnormal posture (02/28/24) Physical Therapy Treatment Note PT-OP-A Visit Information Start: 10/18/23 17:48 Freq: Status: Active Protocol: Document 02/28/24 10:33 [facility] (Rec: 02/28/24 11:11 [facility] [id number]) Out-Patient Physical Therapy Visit Information Visit Information Visit Type Treatment Note Visit Note insurance limited by 24 units Access Code [email or web address] Visit Start Time 10:35 Visit Stop Time 11:08 Visit Number 9 Number of VINYL INSTALLER Visits 1 PT-OP-B Current Condition Start: 10/18/23 17:48 Freq: Status: Active Protocol: Document 11/07/23 11:26 [facility] (Rec: 11/07/23 12:26 [facility] [id number]) Current Condition History of Current Condition Onset Date mar 2023 Current Complaints B heel pain & rollins/ankle pain History of Current Condition Pt is having R>L heel pain. 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 She got a pair of shoes in mar from [facility] and the back of the heel was so rigid and came up high . She wore them for 1.5 months and thought they needed to break them in. She was walking w/1-2 cane because the pain was into the front of her ankle and into her R Knee. She uses the cane now mostly for outdoor walking like up/down curbs. Her old shoes are more comfortable but 3 years old and she know she needs new shoes. She has arch supports and heel lifts from assistant chief engineer . She wants to inc walking to lose weight and is considering bariatric surgery. She has an abdominal hernia, LBP and cetocele and rectocele and 2 other prolapses. Got her prolapses fixed in Jun 2019. She cannot get hernia fixed unless it is fatal or loses wt . Pt wants to get back to walking on the [place]and feels like she is always in pain. pt feels like legs are so heavy. She cannot walk on the grass. She started walking right after prolapse surgery and stayed on paved trail. When she tried gravel/wood paths, it was difficult. Stopped walking d/t pandemic and trail got too busy. She got a little bike (ergo) and can pedal only a few min before back pain. Does stretch her calves. Balance has gotten worse since heel pain. Has had B bunionectomies (when 16 and 31 yo). Pt fx fibula in 2020 L. She has had mult sprains on L ankle. Does have some numbness in toes and heel. She rolls her foot on a bouncy ball but can't d/t knee pain Treatment Goals Patient/Caregiver Goals improve ankle motion, be able to walk w/o cane and walk longer PT-OP-C Subjective Start: 10/18/23 17:48 Freq: Status: Active Protocol: Document 02/28/24 10:33 [facility] (Rec: 02/28/24 11:11 [id number]) OP-PT Subjective Patient Comments Patient Comments Patient reports she has been doing exercises, but not as much as she should, has had new neighbor issues. Patient reports she got new shoes which are more comfortable. PT-OP-F Manual Assessment Start: 10/18/23 17:48 Freq: Status: Active Protocol: Document 11/07/23 11:26 [facility] (Rec: 11/07/23 12:26 [facility] [id number]) Manual Assessments Joint Mobility Assessment Joint Mobility Assessment Varus forefoot and midfoot; dec contact to big toe PT-OP-G Mobility & Gait Start: 10/18/23 17:48 Freq: Status: Active Protocol: Document 11/07/23 11:26 [facility] (Rec: 11/07/23 12:26 [facility] [id number]) OP Gait Assessment Comments Gait Comments pt has inc pelvic rot, inc supination, WBOS, lat lean, dec push off B PT-OP-K Range of Motion Start: 10/18/23 17:48 Freq: Status: Active Protocol: Document 01/29/24 11:01 [facility] (Rec: 01/29/24 15:10 [facility] [id number]) Ankle and Foot Goniometric Range of Motion Ankle and Foot Right Active Dorsiflexion with Knee Flexed 6 Dorsiflexion with Knee Extended 5 Plantarflexion 58 Left Active Dorsiflexion with Knee Flexed 6 Dorsiflexion with Knee Extended 4 Plantarflexion 56 PT-OP-L Special Tests Start: 10/18/23 17:48 Freq: Status: Active Protocol: Document 11/07/23 11:26 [facility] (Rec: 11/07/23 12:26 [facility] [id number]) Special Tests Lumbar Spine Special Tests Slump Test Results neg b PT-OP-M Strength Start: 10/18/23 17:48 Freq: Status: Active Protocol: Document 01/29/24 11:01 [facility] (Rec: 01/29/24 15:10 [facility] [id number]) Hip Strength Hip Manual Muscle Testing Right Flexion (L2) 4- Good- External Rotation 4- Good- Internal Rotation 4- Good- Left Flexion (L2) 4- Good- External Rotation 4- Good- Internal Rotation 4- Good- Comments pain hip rot B Knee Strength Knee Manual Muscle Testing Right Flexion (S2) 4 Good Extension (L3) 4 Good Comments pain in knee Left Flexion (S2) 4+ Good+ Extension (L3) 5 Normal Ankle/Foot Strength Ankle and Foot Manual Muscle Testing Right Dorsiflexion (L4) 4 Good Plantarflexion (S1) 4+ Good+ Inversion 4+ Good+ Eversion (S1) 4 Good Comments pain Left Dorsiflexion (L4) 4+ Good+ Plantarflexion (S1) 5 Normal Inversion 4+ Good+ Eversion (S1) 4+ Good+ Comments PF tested seated B PT-OP-Q Treatments Start: 10/18/23 17:48 Freq: Status: Active Protocol: Document 02/28/24 10:33 [facility] (Rec: 02/28/24 11:11 [facility] [id number]) Therapeutic Exercises Sitting Exercises knee ext Side bilateral Equipment Used L3 Reps/Minutes 12 HS curl Side bilateral Equipment Used L3 Reps/Minutes 10 hip abd Sitting Exercise Name 1. hold 2. hip ROM Side bilateral Equipment Used L3 band Reps/Minutes 1. 1 min 2. 10 march Side bilateral Equipment Used L3 band Reps/Minutes 8x Comments core cues tbands Sitting Exercise Name DF, ev, PF Equipment Used level 3 band Reps/Minutes X10 each Comments Initiated left LE with foot on floor not malia, malia with LE supported Standing Exercises plank Standing Exercise Name on wall w/forearm on wall Side bilateral Reps/Minutes 1x15 sec Manual Therapy Treatment Soft Tissue Mobilization plantar fascia Body Location b Mobilization Type Rolling Intensity/Depth Superficial Body Position Sitting calf Body Location R achilles Mobilization Type Cross-Friction,Rolling, Sustained Pressure Intensity/Depth Superficial Body Position Sitting PT-OP-T Assessment and Plan Start: 10/18/23 17:48 Freq: Status: Active Protocol: Document 02/28/24 10:33 [facility] (Rec: 02/28/24 11:11 [facility] [id number]) Physical Therapy Assessment Goals strength Short Term Goal (STG) Pt will be indep w/HEP STG Duration achieved advancing as able Penitentiary Goal (LTG) Pt will score at least 4+/5 for all BLE MMT in order to show improved strength and stability of LEs for improved tolerance for daily activities . 01/28 improved LTG Duration 03/30 activties Short Term Goal (STG) Pt will feel comfortable and safe to amb in community w/o cane w/o pain in R knee or B ankles greater than 3/10 01/28-after grocery store 7-02/01 and can take a couple days to recover STG Duration 02/24 Penitentiary Goal (LTG) Pt will be able to start walking program for strength and mobility and return to daily walks w/o inc R knee or B ankle pain greater than 1/10 01/28-unable to go for walks LTG Duration 04/02 Four Impairment LEFS score of 13/80 Short Term Goal (STG) Pt will improve LEFS to at least 20/80 to show improved functional ability 01/28-improved to 19 STG Duration 02/23 Gas Engine Operator Generators Goal (LTG) Pt will improve LEFS to at least 35/80 to show improved functional ability LTG Duration 04/02 Three Impairment ROM Short Term Goal (STG) Pt will improve ankle ROM to at least neutral in knee ext position for DF STG Duration achieved 01/28 Penitentiary Goal (LTG) pt will have improved ankle DF to at least 5 deg in knee ext and 10 deg in knee flex position to allow for greater ease w/functional activities including gait and stairs. LTG Duration 04/02 Assessment Summary Assessment Patient reports legs feel like jelly end of session. Good return demonstration for review of HEP. Patient ed to perform PF with band in recliner due to triggering sciatic pain Left LE per patient with first trial seated edge of mat. Physical Therapy Plan Frequency and Duration Frequency of Treatment 1-2x/wk Duration of treatment (weeks) 8 Plan of Care Start Date 01/29/24 Plan of Care End Date 04/02/24 Next Visit Focus/Plan Next Note Type Treatment Note Next Visit Plan avoid modalities d/t dec sensation,avoid tape on foot, STM to calves and foot gently , trial gentle jt mobes R>L not MWM, cont to gradually add LE strength and balance
--- NOTE | 2024-03-05 09:41 | PT.OTN ---
Current Diagnoses Type 2 diabetes mellitus without complications (03/05/24) Contracture of muscle, right lower leg (03/05/24) Contracture of muscle, left lower leg (03/05/24) Muscle weakness (generalized) (03/05/24) Metatarsalgia, right foot (03/05/24) Metatarsalgia, left foot (03/05/24) Difficulty in walking, not elsewhere classified (03/05/24) Abnormal posture (03/05/24) Physical Therapy Treatment Note PT-OP-A Visit Information Start: 10/18/23 17:48 Freq: Status: Active Protocol: Document 03/05/24 09:06 [facility] (Rec: 03/05/24 09:41 [facility] [id number]) Out-Patient Physical Therapy Visit Information Visit Information Visit Type Discharge Summary Visit Note insurance limited by 24 units Visit Start Time 09:02 Visit Stop Time 09:32 Visit Number 10 Number of TEMPORARY OFFICE ASSISTANT Visits 0 PT-OP-B Current Condition Start: 10/18/23 17:48 Freq: Status: Active Protocol: Document 11/07/23 11:26 [facility] (Rec: 11/07/23 12:26 [facility] [id number]) Current Condition History of Current Condition Onset Date mar 2023 Current Complaints B heel pain & rollins/ankle pain History of Current Condition Pt is having R>L heel pain. 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 She got a pair of shoes in mar from [facility] shoe place and the back of the heel was so rigid and came up high . She wore them for 1.5 months and thought they needed to break them in. She was walking w/1-2 cane because the pain was into the front of her ankle and into her R Knee. She uses the cane now mostly for outdoor walking like up/down curbs. Her old shoes are more comfortable but 3 years old and she know she needs new shoes. She has arch supports and heel lifts from college tutor . She wants to inc walking to lose weight and is considering bariatric surgery. She has an abdominal hernia, LBP and cetocele and rectocele and 2 other prolapses. Got her prolapses fixed in Jun 2019. She cannot get hernia fixed unless it is fatal or loses wt . [place] like [place] is always in pain. pt feels like legs are so heavy. She cannot walk on the grass. She started walking right after prolapse surgery and stayed on paved trail. When she tried gravel/wood paths, it was difficult. Stopped walking d/t pandemic and trail got too busy. She got a little bike (ergo) and can pedal only a few min before back pain. Does stretch her calves. Balance has gotten worse since heel pain. Has had B bunionectomies (when 16 and 31 yo). Pt fx fibula in 2020 L. She has had mult sprains on L ankle. Does have some numbness in toes and heel. She rolls her foot on a bouncy ball but can't d/t knee pain Treatment Goals Patient/Caregiver Goals improve ankle motion, be able to walk w/o cane and walk longer PT-OP-C Subjective Start: 10/18/23 17:48 Freq: Status: Active Protocol: Document 03/05/24 09:06 [facility] (Rec: 03/05/24 09:41 [facility] [id number]) OP-PT Subjective Patient Comments Patient Comments haven't been as good w/ exercises [place]w [place]. DId a lot of walking/standign at day of and took sunday and sunday to recover. Has been doing stretches. Prior to that had been doing exercises. PT-OP-F Manual Assessment Start: 10/18/23 17:48 Freq: Status: Active Protocol: Document 11/07/23 11:26 [facility] (Rec: 11/07/23 12:26 [facility] [id number]) Manual Assessments Joint Mobility Assessment Joint Mobility Assessment Varus forefoot and midfoot; dec contact to big toe PT-OP-G Mobility & Gait Start: 10/18/23 17:48 Freq: Status: Active Protocol: Document 11/07/23 11:26 [facility] (Rec: 11/07/23 12:26 [facility] [id number]) OP Gait Assessment Comments Gait Comments pt has inc pelvic rot, inc supination, WBOS, lat lean, dec push off B PT-OP-K Range of Motion Start: 10/18/23 17:48 Freq: Status: Active Protocol: Document 03/05/24 09:06 [facility] (Rec: 03/05/24 09:41 [facility] [id number]) Ankle and Foot Goniometric Range of Motion Ankle and Foot Right Active Dorsiflexion with Knee Flexed 7 Dorsiflexion with Knee Extended 5 Left Active Dorsiflexion with Knee Flexed 10 Dorsiflexion with Knee Extended 5 PT-OP-L Special Tests Start: 10/18/23 17:48 Freq: Status: Active Protocol: Document 11/07/23 11:26 [facility] (Rec: 11/07/23 12:26 [facility] [id number]) Special Tests Lumbar Spine Special Tests Slump Test Results neg b PT-OP-M Strength Start: 10/18/23 17:48 Freq: Status: Active Protocol: Document 03/05/24 09:06 [facility] (Rec: 03/05/24 09:41 [facility] [id number]) Hip Strength Hip Manual Muscle Testing Right Flexion (L2) 4- Good- External Rotation 4 Good Internal Rotation 4 Good Left Flexion (L2) 4- Good- External Rotation 4 Good Internal Rotation 4 Good Comments pain hip rot B Knee Strength Knee Manual Muscle Testing Right Flexion (S2) 4 Good Extension (L3) 4 Good Comments pain in knee Left Flexion (S2) 4+ Good+ Extension (L3) 4+ Good+ Ankle/Foot Strength Ankle and Foot Manual Muscle Testing Right Dorsiflexion (L4) 4+ Good+ Plantarflexion (S1) 4+ Good+ Inversion 4+ Good+ Eversion (S1) 4+ Good+ Comments pain Left Dorsiflexion (L4) 4+ Good+ Plantarflexion (S1) 5 Normal Inversion 4+ Good+ Eversion (S1) 4+ Good+ Comments PF tested seated B PT-OP-Q Treatments Start: 10/18/23 17:48 Freq: Status: Active Protocol: Document 03/05/24 09:06 [facility] (Rec: 03/05/24 09:41 [facility] [id number]) Therapeutic Exercises Sitting Exercises isometrics Sitting Exercise Name LE MMT Side bilateral AROM DF Side bilateral Reps/Minutes measurements tbands Sitting Exercise Name DF, ev, PF, inversion Equipment Used level 3 band Reps/Minutes x6 ea Standing Exercises squat Standing Exercise Name sit to stands Side bilateral Reps/Minutes 12 Manual Therapy Treatment Consent Patient gave verbal consent for manual Yes treatment Soft Tissue Mobilization ant tib Body Location R Mobilization Type Oscillations Intensity/Depth Superficial Body Position Sitting calf Body Location R med Mobilization Type Cross-Friction,Rolling, Sustained Pressure Intensity/Depth Superficial Body Position Sitting Self-Care/Home Management Treatment Education Other Education 9 min: educated on importance of cont exercises and doing gradual inc. Encouraged to leave house for walks and suggested places w/short distances and multiple benches ; discussed doing at least ankle circles, ice/heat and tib ant stretches for ankle for relief PT-OP-T Assessment and Plan Start: 10/18/23 17:48 Freq: Status: Active Protocol: Document 03/05/24 09:06 [facility] (Rec: 03/05/24 09:41 [facility] [id number]) Physical Therapy Assessment Goals strength Short Term Goal (STG) Pt will be indep w/HEP STG Duration achieved advancing as able Electrical Mechanic Goal (LTG) Pt will score at least 4+/5 for all BLE MMT in order to show improved strength and stability of LEs for improved tolerance for daily activities . 01/28 improved 03/05 improved LTG Duration 03/30 activties Short Term Goal (STG) Pt will feel comfortable and safe to amb in community w/o cane w/o pain in R knee or B ankles greater than 3/10 01/28-after grocery store -02/01 and can take a couple days to recover 03/05- STG Duration 02/24 Senior Living Goal (LTG) Pt will be able to start walking program for strength and mobility and return to daily walks w/o inc R knee or B ankle pain greater than 1/10 01/28-unable to go for walks 03/05-has started PT exercises for strength, hasn't tried a walk LTG Duration 04/02 Four Impairment LEFS score of 13/80 Short Term Goal (STG) Pt will improve LEFS to at least 20/80 to show improved functional ability 01/28-improved to 19 STG Duration achieved 03/05 Senior Living Goal (LTG) Pt will improve LEFS to at least 35/80 to show improved functional ability 03/05-20 LTG Duration 04/02 Three Impairment ROM Short Term Goal (STG) Pt will improve ankle ROM to at least neutral in knee ext position for DF STG Duration achieved 01/28 Electrical Mechanic Goal (LTG) pt will have improved ankle DF to at least 5 deg in knee ext and 10 deg in knee flex position to allow for greater ease w/functional activities including gait and stairs. 03/05-partially achieved LTG Duration 04/02 Assessment Summary Assessment Pt has made slow but steady progress w/PT and does note feeling more mobile in RLE. At this time, pt indep w/HEP and encouraged to cont HEP for strength and mobility and pain management. Physical Therapy Plan Discharge Physical Therapy Discharge Reasons Plateau in Progress Discharge Comments insurance limit and pt cannot afford to cont w/o insurance coverage
== END 2024-03-11 14:13 | disposition home or self-care (01) ==
LOC: PHYS 09:00
PROVIDERS: Family Provider Family Medicine; PCP Family Medicine; Referring Provider Podiatrist Foot & Ankle Surgery; Visit Provider Podiatrist Foot & Ankle Surgery
DX: M62.462 Contracture of muscle, left lower leg (principal); M62.461 Contracture of muscle, right lower leg; M77.41 Metatarsalgia, right foot; M77.42 Metatarsalgia, left foot; E11.9 Type 2 diabetes mellitus without complications; M62.81 Muscle weakness (generalized); R29.3 Abnormal posture; R26.2 Difficulty in walking, not elsewhere classified
CPT/HCPCS: 97110; 97140; 97162; 97535

== ENCOUNTER → 2024-04-15 08:55 | Outpatient (CLI) | payer OTHER, MEDICAID, SELFPAY ==
[2024-04-15 10:16] LABS: Alanine Aminotransferase 27 IU/L (<35); Albumin 4.5 g/dL (3.5-5.0); Albumin Globulin Ratio 1.6 (1.0-2.8); Alkaline Phosphatase 66 U/L (38-126); Aspartate Aminotransferase 23 IU/L (14-36); BUN Creatinine Ratio 26.4 (6-22); Blood Urea Nitrogen 24 mg/dL (7-17); Calcium 9.6 mg/dL (8.4-10.2); Carbon Dioxide 29 mmol/L (22-32); Chloride 100 mmol/L (98-107); Estimated Glomerular Filt Rate > 60 mL/min (>60); Globulin 2.8 g/dL (1.7-4.1); Glucose 113 mg/dL (70-100); HEMOLYSIS < 15 (0-50); Potassium 4.7 mmol/L (3.4-5.1); Sodium 136 mmol/L (137-145); Total Protein 7.3 g/dL (6.3-8.2)
[2024-04-15 10:17] LABS: Hemoglobin A1C% w Est Avg Glu 6.5 % (4.0-6.0)
== END ==
PROVIDERS: Family Provider Family Medicine; PCP Family Medicine; Referring Provider Family Medicine; Visit Provider Family Medicine
DX: E11.65 Type 2 diabetes mellitus with hyperglycemia (principal); I10 Essential (primary) hypertension; F17.200 Nicotine dependence, unspecified, uncomplicated
CPT/HCPCS: 36415; 80053; 80321; 83036

== ENCOUNTER → 2024-05-05 08:07 | Outpatient (CLI) | payer OTHER, MEDICAID, SELFPAY ==
--- NOTE | 2024-05-05 08:09 | DI.CT.S_ITS ---
PROCEDURE: CT LUNG LOW DOSE SCREENING INDICATIONS: hx chronic smoking TECHNIQUE: Noncontrast 2.0-2.5 mm thick sections acquired from the pulmonary apices to the posterior costophrenic angles. 7 mm thick axial MIP, and 5 mm coronal and sagittal reformats were then acquired. For radiation dose reduction, the following was used: automated exposure control, adjustment of mA and/or kV according to patient size. COMPARISON: None. FINDINGS: Image quality: Diagnostic. Lower Neck: No enlarged lymph nodes. Thyroid: No thyroid nodules which require sonographic follow up, per consensus guidelines. Axillae: No enlarged lymph nodes. Chest Wall: Unremarkable. Bones: Degenerative changes of the spine. Lungs and Pleura: No pneumothorax or pleural effusions. No consolidation or suspicious nodules. Heart: Heart size is normal. No pericardial effusion. Thoracic Vessels: The aorta is normal in caliber. Prominent main pulmonary artery measuring 3 centimeters. Mediastinum and Paula: No enlarged lymph nodes. Esophagus: No wall thickening. No hiatal hernia. Upper Abdomen: Visualized upper abdomen solid organs and bowel loops appear normal. IMPRESSION: 1. No suspicious pulmonary nodules. 2. Prominent main pulmonary artery measuring 3 centimeters, suggestive of pulmonary hypertension. LUNG-RADS 1; continued annual screening, if eligible. Dictated by: Frankie Cordon M.D. on 05/05/2024 at 14:07 Approved by: Frankie Cordon M.D. on 05/05/2024 at 14:19
[2024-05-07 04:36] LABS: Cotinine Negative ng/mL (Cutoff=300)
== END ==
PROVIDERS: Family Provider Family Medicine; PCP Family Medicine; Referring Provider Family Medicine; Visit Provider Family Medicine
DX: Z12.2 Encounter for screening for malignant neoplasm of respiratory organs (principal); Z87.891 Personal history of nicotine dependence; E11.65 Type 2 diabetes mellitus with hyperglycemia
CPT/HCPCS: 71271; 80321

== ENCOUNTER → 2025-01-12 08:05 | Outpatient (CLI) | payer OTHER, SELFPAY ==
[2025-01-12 08:57] LABS: Add Manual Diff / Slide Review NO; Hematocrit 41.1 % (36-46); Hemoglobin 13.8 g/dL (12.0-16.0); Lymphocytes Absolute Auto 1800 /uL (1100-4500); Mean Corpuscular HGB Conc 33.6 % (30-36); Mean Corpuscular Hemoglobin 30.9 PG (26-34); Mean Corpuscular Volume 92.2 fL (80-100); Platelet Count 251 X10^3/uL (150-400)
[2025-01-12 09:05] LABS: Hemoglobin A1C% w Est Avg Glu 5.7 % (4.0-6.0)
[2025-01-12 09:19] LABS: Alanine Aminotransferase 31 IU/L (<35); Albumin 4.5 g/dL (3.5-5.0); Albumin Globulin Ratio 1.6 (1.0-2.8); Alkaline Phosphatase 62 U/L (38-126); Blood Urea Nitrogen 23 mg/dL (7-17); Calcium 9.5 mg/dL (8.4-10.2); Carbon Dioxide 27 mmol/L (22-32); Chloride 102 mmol/L (98-107); Cholesterol 129 mg/dL (140-199); Estimated Glomerular Filt Rate > 60 mL/min (>60); Globulin 2.8 g/dL (1.7-4.1); Glucose 128 mg/dL (70-99); HDL Cholesterol 51 mg/dL (40-60); HEMOLYSIS < 15 (0-50); Potassium 5.0 mmol/L (3.4-5.1); Sodium 137 mmol/L (137-145); Total Protein 7.3 g/dL (6.3-8.2); Triglycerides 108 mg/dL (35-150)
[2025-01-12 09:37] LABS: Vitamin D 25 Hydroxy (D3) 80.1 ng/mL (30.0-100.0)
[2025-01-12 09:50] LABS: Thyroid Stimulating Hormone 0.907 uIU/mL (0.47-4.68)
[2025-01-12 10:26] LABS: Folate > 20.0 ng/mL (2.76-20.0); Vitamin B12 > 1000 pg/mL (239-931)
== END ==
PROVIDERS: Family Provider Family Medicine; PCP Family Medicine; Referring Provider Surgery; Visit Provider Surgery
DX: Z01.818 Encounter for other preprocedural examination (principal)
CPT/HCPCS: 36415; 80053; 80061; 82306; 82607; 82746; 83036; 84425; 84443; 85025

== ENCOUNTER → 2025-05-28 08:10 | Outpatient (CLI) | payer OTHER, SELFPAY ==
[2025-05-28 08:36] LABS: Add Manual Diff / Slide Review NO; Hematocrit 40.8 % (36-46); Hemoglobin 13.7 g/dL (12.0-16.0); Lymphocytes Absolute Auto 2400 /uL (1100-4500); Mean Corpuscular HGB Conc 33.7 % (30-36); Mean Corpuscular Hemoglobin 30.8 PG (26-34); Mean Corpuscular Volume 91.5 fL (80-100); Platelet Count 242 X10^3/uL (150-400)
[2025-05-28 08:46] LABS: Hemoglobin A1C% w Est Avg Glu 5.7 % (4.0-6.0)
[2025-05-28 09:14] LABS: Alanine Aminotransferase 32 IU/L (<35); Albumin 4.4 g/dL (3.5-5.0); Albumin Globulin Ratio 1.6 (1.0-2.8); Alkaline Phosphatase 60 U/L (38-126); Blood Urea Nitrogen 27 mg/dL (7-17); Calcium 9.6 mg/dL (8.4-10.2); Carbon Dioxide 28 mmol/L (22-32); Chloride 103 mmol/L (98-107); Cholesterol 114 mg/dL (140-199); Estimated Glomerular Filt Rate > 60 mL/min (>60); Globulin 2.7 g/dL (1.7-4.1); Glucose 119 mg/dL (70-99); HDL Cholesterol 51 mg/dL (40-60); HEMOLYSIS < 15 (0-50); Potassium 4.8 mmol/L (3.4-5.1); Sodium 140 mmol/L (137-145); Total Protein 7.1 g/dL (6.3-8.2); Triglycerides 93 mg/dL (35-150)
[2025-05-28 09:29] LABS: Vitamin D 25 Hydroxy (D3) 77.2 ng/mL (30.0-100.0)
[2025-05-28 09:43] LABS: TSH w/ Reflex to FT4 1.87 uIU/mL (0.47-4.68)
[2025-05-28 10:18] LABS: Folate > 20.0 ng/mL (2.76-20.0); Vitamin B12 > 1000 pg/mL (239-931)
== END ==
PROVIDERS: PCP Family Medicine; Referring Provider Family Medicine; Visit Provider Family Medicine
DX: Z01.812 Encounter for preprocedural laboratory examination (principal); K90.49 Malabsorption due to intolerance, not elsewhere classified; I10 Essential (primary) hypertension; E11.65 Type 2 diabetes mellitus with hyperglycemia; F41.9 Anxiety disorder, unspecified
CPT/HCPCS: 36415; 80053; 80061; 82306; 82607; 82746; 83036; 84425; 84443; 85025